=== PATIENT | male | born 1940 | race Caucasian/White ===

== ENCOUNTER 2017-09-23 16:13 | Inpatient (IN) | payer OTHER ==
[~2017-09-23] VITALS: Ht 175.3 cm; Wt 77.3 kg
[~2017-09-23 16:13] MED LIST: ASPI-1265 PO; BIMA2.5D4 EACHEYE; CLIN150C2 PO; INSU100V5 IJ; LANTUS SQ; LISI40TA4 PO; LOVA40TA76 PO; METF500T PO; NOR5T PO; PIOG45TA PO
[2017-09-23 17:03] LABS: BASOPHILS % (AUTO) 0 % (0-1); EOSINOPHILS % (AUTO) 0 % (0-6); HEMOGLOBIN 11.6 g/dl (14.0-17.9); LYMPHOCYTES # (AUTO) 0.3 X10'3 (1.1-4.8); LYMPHOCYTES % (AUTO) 1.3 % (21-51); MEAN CORPUSCULAR HEMOGLOBIN 29.8 PG (27.0-31.0); MEAN CORPUSCULAR HGB CONC 34.1 % (33.0-36.5); MEAN CORPUSCULAR VOLUME 87.3 FL (78-98); MEAN PLATELET VOLUME 7.8 FL (7.4-10.4); MONOCYTES # (AUTO) 1.2 X10'3 (0-0.9); MONOCYTES % (AUTO) 4.4 % (2-12); NEUTROPHILS # (AUTO) 25.9 X10'3 (1.8-7.7); NEUTROPHILS % (AUTO) 94.3 % (42-75); PLATELET COUNT 261 X10'3 (140-440); RED BLOOD COUNT 3.89 X10'6 (4.70-6.10); RED CELL DISTRIBUTION WIDTH 14.5 % (11.5-14.5)
[2017-09-23 17:14] LABS: WHITE BLOOD COUNT 27.5 X10'3 (4.5-11.0)
[2017-09-23 17:14] LABS: CLARITY,URINE CLEAR (Clear); COLOR,URINE YELLOW (Yellow); GLUCOSE, URINE NEGATIVE (Neg); KETONES,URINE TRACE mg/dl (Neg); LEUKOCYTE ESTERASE ,URINE NEGATIVE (Neg); NITRITES, URINE NEGATIVE (Neg); OCCULT BLOOD,URINE TRACE-INTACT (Neg); PH,URINE 5.5 (4.8-8.0); PROTEIN,URINE 30 mg/dl (Neg)
[2017-09-23 17:16] LABS: UA COLLECTION TYPE URINAL
[2017-09-23 17:18] LABS: ALANINE AMINOTRANSFERASE 26 U/L (12-78); ALBUMIN 2.5 G/DL (3.4-5.0); ALBUMIN/GLOBULIN RATIO 0.5 (1.1-1.5); ALKALINE PHOSPHATASE 184 IU/L (46-116); ANION GAP 12 (8-16); ASPARTATE AMINO TRANSFERASE 25 U/L (10-37); BILIRUBIN,TOTAL 0.7 MG/DL (0.1-1.0); BLOOD UREA NITROGEN 22 MG/DL (7-18); BUN/CREATININE RATIO 17.2 (5.4-32.0); CALCIUM 9.5 MG/DL (8.5-10.1); CHLORIDE 93 MMOL/L (99-107); CREATININE 1.28 MG/DL (0.60-1.10); GLUCOSE 101 MG/DL (70-104); POTASSIUM 4.9 MMOL/L (3.5-5.1); SODIUM 127 MMOL/L (135-145); TOTAL CARBON DIOXIDE 22.1 MMOL/L (24-32); TOTAL PROTEIN 7.9 G/DL (6.4-8.2); eGFR 55 ML/MIN
[2017-09-23] MEDS ORDERED: normal saline 1000ML IV soln IVB ONE (17:20)
[2017-09-23 17:22] LABS: BACTERIA,URINE NONE SEEN /HPF (Neg); RBC,URINE 0-2 /HPF (0-2); SQUAMOUS EPITHELIAL CELL,UR FEW /LPF (FEW); WBC,URINE 0-4 /HPF (0-4)
[2017-09-23 17:31] LABS: INR 1.1 INR; PARTIAL THROMBOPLASTIN TIME 34 SECONDS (22-32); PROTHROMBIN TIME 11.3 SECONDS (9.0-12.0)
[2017-09-23 17:39] LABS: TOTAL CELLS COUNTED 100
[2017-09-23 17:40] LABS: PLATELET ESTIMATE NORMAL; TOXIC GRANULATION 2+
[2017-09-23 17:58] LABS: MAGNESIUM 1.6 MG/DL (1.5-2.4)
[2017-09-23] MEDS ORDERED: vancomycin inj 1,000 MG in normal saline 250ml IV soln 250 ML IV STA (20:59)
[2017-09-23] MEDS ORDERED: temazepam 15mg capsule PO PRN (21:00)
[2017-09-23] MEDS ORDERED: CARV6.253 PO (21:07)
[2017-09-23] MEDS ORDERED: FURO-150 PO (21:07)
[2017-09-23] MEDS ORDERED: OMEP40CA37 PO (21:07)
[2017-09-23] MEDS ORDERED: SPIR25TA5 PO (21:07)
[2017-09-23] MEDS ORDERED: vancomycin/NS 1 GM ADD-VANTAGE 250 ML IV ONE (21:10)
[2017-09-23] MEDS ORDERED: ondansetron/PF 4mg/2ml inj IV PRN (21:35)
[2017-09-23] MEDS ORDERED: dextrose ORAL solution 15 GM/59 ML bottle PO PRN (21:35)
[2017-09-23] MEDS ORDERED: MESSAGE TO PHARMACY PO ONE (21:35)
[2017-09-23] MEDS ORDERED: dextrose 50%-water 50ml dispensing syringe IV PRN ×2 (21:35)
[2017-09-23] MEDS ORDERED: glucagon, human recombinant 1mg kit SUBCUT PRN (21:35)
[2017-09-23] MEDS ORDERED: mag hydrox/Alum hydrox/simeth 30ml oral suspension PO PRN (21:35)
[2017-09-23] MEDS ORDERED: acetaminophen 325mg tablet PO PRN ×2 (21:35)
[2017-09-23] MEDS ORDERED: HYDROcodone/acetaminophen 5mg/325mg tablet PO PRN (21:35)
[2017-09-23] MEDS: normal saline 1000ml 1,000 ML IV SCH (22:52)
[2017-09-23] MEDS: CefTRIAXone/D5W-Rocephin 1gm 50 ML IV SCH (22:53)
[2017-09-23 23:30] VITALS: BP 142/66
[2017-09-24 05:13] LABS: BASOPHILS % (AUTO) 0 % (0-1); EOSINOPHILS % (AUTO) 0 % (0-6); HEMATOCRIT 31.2 % (42.0-52.0); HEMOGLOBIN 10.5 g/dl (14.0-17.9); LYMPHOCYTES # (AUTO) 0.4 X10'3 (1.1-4.8); LYMPHOCYTES % (AUTO) 1.6 % (21-51); MEAN CORPUSCULAR HEMOGLOBIN 29.7 PG (27.0-31.0); MEAN CORPUSCULAR HGB CONC 33.7 % (33.0-36.5); MEAN CORPUSCULAR VOLUME 88.2 FL (78-98); MEAN PLATELET VOLUME 8.1 FL (7.4-10.4); MONOCYTES % (AUTO) 7.8 % (2-12); NEUTROPHILS # (AUTO) 24.6 X10'3 (1.8-7.7); NEUTROPHILS % (AUTO) 90.6 % (42-75); PLATELET COUNT 229 X10'3 (140-440); RED BLOOD COUNT 3.54 X10'6 (4.70-6.10); RED CELL DISTRIBUTION WIDTH 14.8 % (11.5-14.5)
[2017-09-24 05:38] LABS: WHITE BLOOD COUNT 27.2 X10'3 (4.5-11.0)
[2017-09-24 05:41] LABS: ALBUMIN 1.9 G/DL (3.4-5.0); ANION GAP 12 (8-16); BLOOD UREA NITROGEN 13 MG/DL (7-18); BUN/CREATININE RATIO 12.7 (5.4-32.0); CALCIUM 8.8 MG/DL (8.5-10.1); CHLORIDE 98 MMOL/L (99-107); CHOLESTEROL 61 MG/DL (0-200); CREATININE 1.02 MG/DL (0.60-1.10); HDL CHOLESTEROL 31 MG/DL (35-60); LDL CHOLESTEROL 25 MG/DL (50-100); POTASSIUM 3.9 MMOL/L (3.5-5.1); SODIUM 132 MMOL/L (135-145); TOTAL CARBON DIOXIDE 21.9 MMOL/L (24-32); TRIGLYCERIDES 31 MG/DL (20-135); eGFR 71 ML/MIN
[2017-09-24 05:46] LABS: GLUCOSE 34 MG/DL (70-104)
[2017-09-24 06:30] LABS: PLATELET ESTIMATE NORMAL; TOTAL CELLS COUNTED 100
[2017-09-24 07:30] VITALS: BP 140/77
[2017-09-24] MEDS: enoxaparin 40mg/0.4ml syringe SQ SCH (07:48)
[2017-09-24 07:49] LABS: MONOCYTES # (AUTO) 2.1 X10'3 (0-0.9)
[2017-09-24] MEDS: aspirin 81mg tab.chew PO SCH (07:49)
[2017-09-24] MEDS: atorvastatin 10mg tablet PO SCH ×2 (07:49→08:27)
[2017-09-24] MEDS: pantoprazole 40mg Tablet.DR PO SCH ×2 (07:51→08:26)
[2017-09-24] MEDS: carvedilol 6.25mg tablet PO SCH ×3 (07:56→19:49)
[2017-09-24] MEDS: spironolactone 25 MG tablet PO SCH ×2 (08:00→08:26)
[2017-09-24] MEDS: lisinopril 20mg tablet PO SCH ×2 (08:00→08:25)
[2017-09-24] MEDS: amLODIPine 5mg tablet PO SCH ×2 (08:00→08:28)
[2017-09-24] MEDS: CefTRIAXone/D5W-Rocephin 1gm 50 ML IV SCH (08:02)
[2017-09-24] MEDS: normal saline 1000ml 1,000 ML IV SCH ×2 (08:02→17:29)
[2017-09-24] MEDS: vancomycin/NS 1 GM ADD-VANTAGE 250 ML IV SCH ×2 (08:02→19:53)
[2017-09-24 11:22] VITALS: BP 135/60
[2017-09-24] MEDS ORDERED: ringers solution, lacted 1,000 ML IV ONE (14:25)
[2017-09-24 19:00] VITALS: BP 116/51
[2017-09-24] MEDS: insulin Lispro (HumaLOG) vial - multi-dose SQ SCH (19:47)
[2017-09-24] MEDS: lactobacillus rhamnosus 10,000 MMU CELLS/CAPSULE PO SCH (19:49)
[2017-09-24] MEDS: insulin glargine (Lantus) pen - multi-dose SQ SCH ×2 (21:00→21:38)
[2017-09-25] VITALS (19 sets, daily range): BP systolic 96–144; BP diastolic 44–83
[2017-09-25] MEDS: normal saline 1000ml 1,000 ML IV SCH ×3 (03:35→23:22)
[2017-09-25 05:52] LABS: PRE OP INR 1.3 INR; PRE OP PROTIME 13.2 SECONDS (9.0-12.0)
[2017-09-25] MEDS ORDERED: famotidine 20mg tablet PO ONE (06:00)
[2017-09-25 06:12] LABS: ALBUMIN 1.5 G/DL (3.4-5.0); ALBUMIN/GLOBULIN RATIO 0.4 (1.1-1.5); ALKALINE PHOSPHATASE 137 IU/L (46-116); BLOOD UREA NITROGEN 16 MG/DL (7-18); BUN/CREATININE RATIO 17.6 (5.4-32.0); CHLORIDE 99 MMOL/L (99-107); CREATININE 0.91 MG/DL (0.60-1.10); MAGNESIUM 1.5 MG/DL (1.5-2.4); PRE OP ALT 38 U/L (30-65); PRE OP ANION GAP 9 (8-16); PRE OP AST 55 U/L (10-37); PRE OP BILIRUB, TOTAL 0.5 MG/DL (0.0-1.0); PRE OP GLUCOSE 181 MG/DL (70-104); TOTAL CARBON DIOXIDE 19.1 MMOL/L (24-32); TOTAL PROTEIN 5.7 G/DL (6.4-8.2); eGFR 81 ML/MIN
[2017-09-25 06:16] LABS: PRE OP SODIUM 127 MMOL/L (135-145)
[2017-09-25] MEDS: carvedilol 6.25mg tablet PO SCH ×2 (06:45→19:56)
[2017-09-25] MEDS: aspirin 81mg tab.chew PO SCH (06:45)
[2017-09-25] MEDS: enoxaparin 40mg/0.4ml syringe SQ SCH (06:45)
[2017-09-25] MEDS: lisinopril 20mg tablet PO SCH ×2 (06:46→07:12)
[2017-09-25] MEDS: spironolactone 25 MG tablet PO SCH (06:46)
[2017-09-25] MEDS: pantoprazole 40mg Tablet.DR PO SCH ×2 (06:47→07:13)
[2017-09-25] MEDS: atorvastatin 10mg tablet PO SCH (06:50)
[2017-09-25] MEDS: amLODIPine 5mg tablet PO SCH ×2 (06:50→07:13)
[2017-09-25] MEDS: lactobacillus rhamnosus 10,000 MMU CELLS/CAPSULE PO SCH ×2 (06:50→19:56)
[2017-09-25 06:54] LABS: BASOPHILS % (AUTO) 0 % (0-1); EOSINOPHILS % (AUTO) 0 % (0-6); HEMATOCRIT 25.8 % (42.0-52.0); HEMOGLOBIN 8.9 g/dl (14.0-17.9); LYMPHOCYTES # (AUTO) 0.4 X10'3 (1.1-4.8); LYMPHOCYTES % (AUTO) 2.2 % (21-51); MEAN CORPUSCULAR HEMOGLOBIN 29.8 PG (27.0-31.0); MEAN CORPUSCULAR HGB CONC 34.3 % (33.0-36.5); MEAN CORPUSCULAR VOLUME 87.1 FL (78-98); MONOCYTES # (AUTO) 1.4 X10'3 (0-0.9); MONOCYTES % (AUTO) 7.4 % (2-12); NEUTROPHILS # (AUTO) 17.2 X10'3 (1.8-7.7); NEUTROPHILS % (AUTO) 90.4 % (42-75); PLATELET COUNT 167 X10'3 (140-440); RED BLOOD COUNT 2.97 X10'6 (4.70-6.10); RED CELL DISTRIBUTION WIDTH 14.6 % (11.5-14.5)
[2017-09-25] MEDS: CefTRIAXone/D5W-Rocephin 1gm 50 ML IV SCH (07:13)
[2017-09-25] MEDS ORDERED: VANCOMYCIN LEVEL IV ONE (07:30)
[2017-09-25] MEDS ORDERED: BUPIVAcaine/PF 7.5mg/ml (0.75%) 10ml vial ONE (07:49)
[2017-09-25] MEDS ORDERED: fentaNYL/PF 50MCG/1 ML 2ML syringe ONE (07:51)
[2017-09-25] MEDS ORDERED: MIDAZolam 5mg/5ml vial ONE (07:51)
[2017-09-25] MEDS ORDERED: ringers solution, lacted 1,000 ML IV SCH (07:53)
[2017-09-25] MEDS ORDERED: hydrALAZINE 20mg/ml inj. IV PRN (07:55)
[2017-09-25] MEDS ORDERED: labetalol 5mg/ml 20ml inj. IV PRN (07:55)
[2017-09-25] MEDS ORDERED: ondansetron/PF 4mg/2ml inj IV PRN (07:55)
[2017-09-25] MEDS ORDERED: morphine 4 MG/ML inj SYRINge IV PRN ×2 (07:55)
[2017-09-25] MEDS ORDERED: fentaNYL/PF 50MCG/1 ML 2ML syringe IV PRN ×2 (07:55)
[2017-09-25] MEDS: vancomycin/NS 1 GM ADD-VANTAGE 250 ML IV SCH ×2 (08:00→19:57)
[2017-09-25 09:19] LABS: TOTAL CELLS COUNTED 100
[2017-09-25 09:21] LABS: BANDS% (MANUAL) 2 % (0-10); LYMPHOCYTES % (MANUAL) 2 % (21-51); MONOCYTES % (MANUAL) 8 % (2-12); NEUTROPHILS % (MANUAL) 88 % (42-75); PLATELET ESTIMATE NORMAL; POLYCHROMASIA FEW
[2017-09-25 09:22] LABS: BURR CELLS 1+; ELLIPTOCYTES FEW; TOXIC GRANULATION 2+
[2017-09-25] MEDS: HYDROmorphone 1 mg/ml syringe IV PRN ×2 (14:39→19:56)
[2017-09-25] MEDS: insulin Lispro (HumaLOG) vial - multi-dose SQ SCH (19:14)
[2017-09-25] MEDS: insulin glargine (Lantus) pen - multi-dose SQ SCH ×2 (21:00→21:52)
[2017-09-26] VITALS: BP 121/53
[2017-09-26] MEDS: HYDROmorphone 1 mg/ml syringe IV PRN ×2 (00:39→06:00)
[2017-09-26 04:49] LABS: BASOPHILS % (AUTO) 0.1 % (0-1); EOSINOPHILS # (AUTO) 0.2 X10'3 (0-0.9); EOSINOPHILS % (AUTO) 2.2 % (0-6); HEMATOCRIT 25.5 % (42.0-52.0); HEMOGLOBIN 8.5 g/dl (14.0-17.9); LYMPHOCYTES # (AUTO) 0.6 X10'3 (1.1-4.8); LYMPHOCYTES % (AUTO) 6.3 % (21-51); MEAN CORPUSCULAR HEMOGLOBIN 29.1 PG (27.0-31.0); MEAN CORPUSCULAR HGB CONC 33.3 % (33.0-36.5); MEAN CORPUSCULAR VOLUME 87.4 FL (78-98); MEAN PLATELET VOLUME 8.3 FL (7.4-10.4); MONOCYTES # (AUTO) 0.9 X10'3 (0-0.9); MONOCYTES % (AUTO) 10.1 % (2-12); NEUTROPHILS # (AUTO) 7.6 X10'3 (1.8-7.7); NEUTROPHILS % (AUTO) 81.3 % (42-75); PLATELET COUNT 185 X10'3 (140-440); RED BLOOD COUNT 2.92 X10'6 (4.70-6.10); RED CELL DISTRIBUTION WIDTH 14.5 % (11.5-14.5); WHITE BLOOD COUNT 9.3 X10'3 (4.5-11.0)
[2017-09-26 05:08] LABS: ALBUMIN 1.5 G/DL (3.4-5.0); ANION GAP 8 (8-16); BLOOD UREA NITROGEN 17 MG/DL (7-18); BUN/CREATININE RATIO 17.5 (5.4-32.0); CALCIUM 8.2 MG/DL (8.5-10.1); CHLORIDE 101 MMOL/L (99-107); CREATININE 0.97 MG/DL (0.60-1.10); GLUCOSE 271 MG/DL (70-104); MAGNESIUM 1.4 MG/DL (1.5-2.4); POTASSIUM 4.1 MMOL/L (3.5-5.1); SODIUM 131 MMOL/L (135-145); TOTAL CARBON DIOXIDE 22.2 MMOL/L (24-32); eGFR 75 ML/MIN
[2017-09-26 07:42] VITALS: BP 120/61
[2017-09-26] MEDS: CefTRIAXone/D5W-Rocephin 1gm 50 ML IV SCH (08:10)
[2017-09-26] MEDS: lactobacillus rhamnosus 10,000 MMU CELLS/CAPSULE PO SCH ×2 (08:12→19:32)
[2017-09-26] MEDS: atorvastatin 10mg tablet PO SCH (08:12)
[2017-09-26] MEDS: aspirin 81mg tab.chew PO SCH (08:12)
[2017-09-26] MEDS: pantoprazole 40mg Tablet.DR PO SCH (08:13)
[2017-09-26] MEDS: amLODIPine 5mg tablet PO SCH (08:13)
[2017-09-26] MEDS: lisinopril 20mg tablet PO SCH (08:14)
[2017-09-26] MEDS: spironolactone 25 MG tablet PO SCH (08:14)
[2017-09-26] MEDS: enoxaparin 40mg/0.4ml syringe SQ SCH (08:14)
[2017-09-26] MEDS: carvedilol 6.25mg tablet PO SCH ×2 (08:17→19:32)
[2017-09-26] MEDS: insulin Lispro (HumaLOG) vial - multi-dose SQ SCH ×2 (09:44→19:42)
[2017-09-26] MEDS: vancomycin/NS 1 GM ADD-VANTAGE 250 ML IV SCH ×2 (09:45→19:32)
[2017-09-26] MEDS: normal saline 1000ml 1,000 ML IV SCH ×3 (10:33→23:14)
[2017-09-26] MEDS ORDERED: potassium Cl 40MEQ/NS 500ml 500 ML IV PRN ×2 (11:30)
[2017-09-26] MEDS ORDERED: magnesium Cl slow-release 64mg tablet PO PRN (11:30)
[2017-09-26] MEDS ORDERED: magnesium 1gm/100ml D5W IVPB 100 ML IV PRN (11:30)
[2017-09-26] MEDS ORDERED: potassium Cl 20 mEq SR tablet PO PRN ×2 (11:30)
[2017-09-26] MEDS ORDERED: magnesium 4gm in 100ml NS 100 ML IV PRN (11:30)
[2017-09-26 11:39] VITALS: BP 109/54
[2017-09-26 18:00] VITALS: BP 141/66
[2017-09-26] MEDS: insulin glargine (Lantus) pen - multi-dose SQ SCH ×2 (21:00→22:20)
[2017-09-26] MEDS: HYDROcodone/acetaminophen 10/325mg tab PO PRN (22:17)
[2017-09-27] VITALS: BP 130/57
[2017-09-27 05:33] LABS: BASOPHILS % (AUTO) 0.3 % (0-1); EOSINOPHILS # (AUTO) 0.1 X10'3 (0-0.9); EOSINOPHILS % (AUTO) 1.4 % (0-6); HEMATOCRIT 24.1 % (42.0-52.0); HEMOGLOBIN 8.1 g/dl (14.0-17.9); LYMPHOCYTES # (AUTO) 0.6 X10'3 (1.1-4.8); LYMPHOCYTES % (AUTO) 7.1 % (21-51); MEAN CORPUSCULAR HEMOGLOBIN 29.3 PG (27.0-31.0); MEAN CORPUSCULAR HGB CONC 33.6 % (33.0-36.5); MEAN CORPUSCULAR VOLUME 87.2 FL (78-98); MEAN PLATELET VOLUME 8.1 FL (7.4-10.4); MONOCYTES % (AUTO) 11.3 % (2-12); NEUTROPHILS # (AUTO) 6.8 X10'3 (1.8-7.7); NEUTROPHILS % (AUTO) 79.9 % (42-75); PLATELET COUNT 206 X10'3 (140-440); RED BLOOD COUNT 2.76 X10'6 (4.70-6.10); RED CELL DISTRIBUTION WIDTH 14.8 % (11.5-14.5); WHITE BLOOD COUNT 8.5 X10'3 (4.5-11.0)
[2017-09-27 06:03] LABS: ALBUMIN 1.5 G/DL (3.4-5.0); ANION GAP 7 (8-16); BLOOD UREA NITROGEN 12 MG/DL (7-18); BUN/CREATININE RATIO 14.5 (5.4-32.0); CALCIUM 8.1 MG/DL (8.5-10.1); CHLORIDE 104 MMOL/L (99-107); CREATININE 0.83 MG/DL (0.60-1.10); GLUCOSE 119 MG/DL (70-104); MAGNESIUM 1.6 MG/DL (1.5-2.4); SODIUM 134 MMOL/L (135-145); eGFR 90 ML/MIN
[2017-09-27 07:00] VITALS: BP 125/66
[2017-09-27] MEDS: pantoprazole 40mg Tablet.DR PO SCH (08:12)
[2017-09-27] MEDS: carvedilol 6.25mg tablet PO SCH ×2 (08:12→20:00)
[2017-09-27] MEDS: atorvastatin 10mg tablet PO SCH (08:12)
[2017-09-27] MEDS: lisinopril 20mg tablet PO SCH (08:12)
[2017-09-27] MEDS: lactobacillus rhamnosus 10,000 MMU CELLS/CAPSULE PO SCH ×2 (08:12→20:43)
[2017-09-27] MEDS: amLODIPine 5mg tablet PO SCH (08:12)
[2017-09-27] MEDS: aspirin 81mg tab.chew PO SCH (08:12)
[2017-09-27] MEDS: spironolactone 25 MG tablet PO SCH (08:12)
[2017-09-27] MEDS: CefTRIAXone/D5W-Rocephin 1gm 50 ML IV SCH (08:12)
[2017-09-27] MEDS: enoxaparin 40mg/0.4ml syringe SQ SCH (08:13)
[2017-09-27] MEDS: vancomycin/NS 1 GM ADD-VANTAGE 250 ML IV SCH ×2 (09:12→20:43)
[2017-09-27] MEDS: insulin Lispro (HumaLOG) vial - multi-dose SQ SCH ×3 (09:33→18:38)
[2017-09-27 11:43] VITALS: BP 125/51
[2017-09-27] MEDS: normal saline 1000ml 1,000 ML IV SCH (15:39)
[2017-09-27 20:00] VITALS: BP 133/54
[2017-09-27] MEDS: insulin glargine (Lantus) pen - multi-dose SQ SCH ×2 (21:00→21:40)
[2017-09-28] VITALS: BP 161/66
[2017-09-28] MEDS: normal saline 1000ml 1,000 ML IV SCH ×2 (01:35→04:45)
[2017-09-28] MEDS: magnesium hydroxide 30ml (MOM) UD suspension PO PRN ×2 (04:48→19:47)
[2017-09-28 07:00] VITALS: BP 142/62
[2017-09-28 07:20] LABS: BASOPHILS % (AUTO) 0.1 % (0-1); EOSINOPHILS # (AUTO) 0.2 X10'3 (0-0.9); HEMATOCRIT 26.8 % (42.0-52.0); HEMOGLOBIN 9.2 g/dl (14.0-17.9); LYMPHOCYTES # (AUTO) 0.6 X10'3 (1.1-4.8); LYMPHOCYTES % (AUTO) 5.2 % (21-51); MEAN CORPUSCULAR HEMOGLOBIN 29.2 PG (27.0-31.0); MEAN CORPUSCULAR HGB CONC 34.3 % (33.0-36.5); MEAN CORPUSCULAR VOLUME 85.1 FL (78-98); MEAN PLATELET VOLUME 8.3 FL (7.4-10.4); MONOCYTES # (AUTO) 1.2 X10'3 (0-0.9); MONOCYTES % (AUTO) 11.5 % (2-12); NEUTROPHILS # (AUTO) 8.8 X10'3 (1.8-7.7); NEUTROPHILS % (AUTO) 81.2 % (42-75); PLATELET COUNT 259 X10'3 (140-440); RED BLOOD COUNT 3.15 X10'6 (4.70-6.10); RED CELL DISTRIBUTION WIDTH 14.7 % (11.5-14.5); WHITE BLOOD COUNT 10.9 X10'3 (4.5-11.0)
[2017-09-28 07:40] LABS: ALBUMIN 1.7 G/DL (3.4-5.0); ANION GAP 6 (8-16); BLOOD UREA NITROGEN 8 MG/DL (7-18); BUN/CREATININE RATIO 8.7 (5.4-32.0); CALCIUM 8.7 MG/DL (8.5-10.1); CHLORIDE 101 MMOL/L (99-107); CREATININE 0.92 MG/DL (0.60-1.10); GLUCOSE 99 MG/DL (70-104); MAGNESIUM 1.5 MG/DL (1.5-2.4); POTASSIUM 3.8 MMOL/L (3.5-5.1); SODIUM 134 MMOL/L (135-145); TOTAL CARBON DIOXIDE 27.3 MMOL/L (24-32); eGFR 80 ML/MIN
[2017-09-28] MEDS: atorvastatin 10mg tablet PO SCH (09:46)
[2017-09-28] MEDS: carvedilol 6.25mg tablet PO SCH ×2 (09:46→19:46)
[2017-09-28] MEDS: lisinopril 20mg tablet PO SCH (09:46)
[2017-09-28] MEDS: lactobacillus rhamnosus 10,000 MMU CELLS/CAPSULE PO SCH ×2 (09:46→19:46)
[2017-09-28] MEDS: pantoprazole 40mg Tablet.DR PO SCH (09:46)
[2017-09-28] MEDS: amLODIPine 5mg tablet PO SCH (09:46)
[2017-09-28] MEDS: aspirin 81mg tab.chew PO SCH (09:46)
[2017-09-28] MEDS: enoxaparin 40mg/0.4ml syringe SQ SCH (09:49)
[2017-09-28] MEDS: vancomycin/NS 1 GM ADD-VANTAGE 250 ML IV SCH ×2 (09:51→19:46)
[2017-09-28] MEDS: spironolactone 25 MG tablet PO SCH (09:52)
[2017-09-28] MEDS: insulin Lispro (HumaLOG) vial - multi-dose SQ SCH ×3 (09:58→19:45)
[2017-09-28] MEDS: CefTRIAXone/D5W-Rocephin 1gm 50 ML IV SCH (11:22)
[2017-09-28] MEDS: HYDROcodone/acetaminophen 10/325mg tab PO PRN (19:47)
[2017-09-28 20:00] VITALS: BP 133/53
[2017-09-28] MEDS: insulin glargine (Lantus) pen - multi-dose SQ SCH ×2 (21:00→21:46)
[2017-09-29] VITALS: BP 134/60
[2017-09-29 05:28] LABS: MAGNESIUM 1.9 MG/DL (1.5-2.4); POTASSIUM 4.1 MMOL/L (3.5-5.1)
[2017-09-29] MEDS: spironolactone 25 MG tablet PO SCH (07:32)
[2017-09-29] MEDS: CefTRIAXone/D5W-Rocephin 1gm 50 ML IV SCH (07:32)
[2017-09-29] MEDS: lactobacillus rhamnosus 10,000 MMU CELLS/CAPSULE PO SCH ×2 (07:33→19:04)
[2017-09-29] MEDS: aspirin 81mg tab.chew PO SCH (07:33)
[2017-09-29] MEDS: carvedilol 6.25mg tablet PO SCH ×2 (07:33→19:03)
[2017-09-29] MEDS: pantoprazole 40mg Tablet.DR PO SCH (07:34)
[2017-09-29] MEDS: atorvastatin 10mg tablet PO SCH (07:34)
[2017-09-29] MEDS: amLODIPine 5mg tablet PO SCH (07:34)
[2017-09-29] MEDS: lisinopril 20mg tablet PO SCH (07:34)
[2017-09-29] MEDS: enoxaparin 40mg/0.4ml syringe SQ SCH (07:34)
[2017-09-29] MEDS: HYDROcodone/acetaminophen 10/325mg tab PO PRN ×3 (07:44→23:09)
[2017-09-29 07:56] VITALS: BP 140/57
[2017-09-29] MEDS: vancomycin/NS 1 GM ADD-VANTAGE 250 ML IV SCH (09:07)
[2017-09-29] MEDS: insulin Lispro (HumaLOG) vial - multi-dose SQ SCH ×3 (09:08→19:03)
[2017-09-29 12:13] VITALS: BP 95/39
[2017-09-29 20:00] VITALS: BP 129/54
[2017-09-29] MEDS: insulin glargine (Lantus) pen - multi-dose SQ SCH ×2 (21:00→22:07)
[2017-09-29] MEDS: dextrose ORAL solution 15 GM/59 ML bottle PO PRN ×2 (21:24→21:42)
[2017-09-30] VITALS: BP 139/59
[2017-09-30 07:00] VITALS: BP 125/66
[2017-09-30] MEDS ORDERED: VANCOMYCIN LEVEL IV ONE (07:30)
[2017-09-30] MEDS: HYDROcodone/acetaminophen 10/325mg tab PO PRN ×4 (07:33→20:48)
[2017-09-30] MEDS: lisinopril 20mg tablet PO SCH (07:33)
[2017-09-30] MEDS: atorvastatin 10mg tablet PO SCH (07:35)
[2017-09-30] MEDS: pantoprazole 40mg Tablet.DR PO SCH (07:35)
[2017-09-30] MEDS: aspirin 81mg tab.chew PO SCH (07:37)
[2017-09-30] MEDS: lactobacillus rhamnosus 10,000 MMU CELLS/CAPSULE PO SCH ×2 (07:37→20:47)
[2017-09-30] MEDS: carvedilol 6.25mg tablet PO SCH ×2 (07:37→20:48)
[2017-09-30] MEDS: amLODIPine 5mg tablet PO SCH (07:37)
[2017-09-30] MEDS: spironolactone 25 MG tablet PO SCH (07:37)
[2017-09-30] MEDS: enoxaparin 40mg/0.4ml syringe SQ SCH (07:38)
[2017-09-30 08:49] LABS: MAGNESIUM 1.9 MG/DL (1.5-2.4); POTASSIUM 4.4 MMOL/L (3.5-5.1); VANCOMYCIN,TROUGH 15.5 UG/ML (6.0-14.0)
[2017-09-30 11:00] VITALS: BP 123/58
[2017-09-30] MEDS: insulin Lispro (HumaLOG) vial - multi-dose SQ SCH ×2 (13:18→19:10)
[2017-09-30 19:18] VITALS: BP 135/52
[2017-09-30] MEDS ORDERED: insulin glargine (Lantus) pen - multi-dose SQ SCH (21:00)
[2017-09-30] MEDS: dextrose ORAL solution 15 GM/59 ML bottle PO PRN ×2 (21:51→22:08)
[2017-09-30] MEDS: insulin glargine (Lantus) pen - multi-dose SQ SCH (23:09)
[2017-09-30 23:32] VITALS: BP 122/56
[2017-10-01 05:36] LABS: MAGNESIUM 1.8 MG/DL (1.5-2.4); POTASSIUM 4.7 MMOL/L (3.5-5.1)
[2017-10-01 07:00] VITALS: BP 140/50
[2017-10-01] MEDS: aspirin 81mg tab.chew PO SCH (07:13)
[2017-10-01] MEDS: spironolactone 25 MG tablet PO SCH (07:14)
[2017-10-01] MEDS: lisinopril 20mg tablet PO SCH (07:14)
[2017-10-01] MEDS: pantoprazole 40mg Tablet.DR PO SCH (07:14)
[2017-10-01] MEDS: amLODIPine 5mg tablet PO SCH (07:14)
[2017-10-01] MEDS: carvedilol 6.25mg tablet PO SCH ×2 (07:14→20:56)
[2017-10-01] MEDS: HYDROcodone/acetaminophen 10/325mg tab PO PRN (07:14)
[2017-10-01] MEDS: lactobacillus rhamnosus 10,000 MMU CELLS/CAPSULE PO SCH ×2 (07:14→20:56)
[2017-10-01] MEDS: atorvastatin 10mg tablet PO SCH (07:14)
[2017-10-01] MEDS: enoxaparin 40mg/0.4ml syringe SQ SCH (07:15)
[2017-10-01] MEDS: insulin Lispro (HumaLOG) vial - multi-dose SQ SCH ×3 (09:17→19:32)
[2017-10-01 11:51] VITALS: BP 136/56
[2017-10-01 18:00] VITALS: BP 142/62
[2017-10-01 20:51] VITALS: BP 131/55
[2017-10-01] MEDS ORDERED: insulin glargine (Lantus) pen - multi-dose SQ SCH (21:00)
[2017-10-01] MEDS: insulin glargine (Lantus) pen - multi-dose SQ SCH (21:01)
[2017-10-01 23:25] VITALS: BP 146/62
[2017-10-02 07:17] VITALS: BP 146/57
[2017-10-02] MEDS: spironolactone 25 MG tablet PO SCH (07:51)
[2017-10-02] MEDS: carvedilol 6.25mg tablet PO SCH (07:51)
[2017-10-02] MEDS: lisinopril 20mg tablet PO SCH (07:51)
[2017-10-02] MEDS: atorvastatin 10mg tablet PO SCH (07:51)
[2017-10-02] MEDS: amLODIPine 5mg tablet PO SCH (07:51)
[2017-10-02] MEDS: enoxaparin 40mg/0.4ml syringe SQ SCH (07:51)
[2017-10-02] MEDS: lactobacillus rhamnosus 10,000 MMU CELLS/CAPSULE PO SCH (07:51)
[2017-10-02] MEDS: pantoprazole 40mg Tablet.DR PO SCH (07:51)
[2017-10-02] MEDS: aspirin 81mg tab.chew PO SCH (07:51)
[2017-10-02] MEDS: insulin Lispro (HumaLOG) vial - multi-dose SQ SCH ×2 (09:00→12:58)
[2017-10-02 11:52] VITALS: BP 133/57
== END 2017-10-02 14:47 | DRG 853 ==
LOC: ER 16:14 → ED HOLD 21:35 → SUR 3N 22:30 → PACU 09-25 07:52 → SUR 3N 09-25 11:21
PROVIDERS: ADMIT Hospitalist; ATTEND Family Medicine
PROC: 0Y6H0Z1 Detachment at Right Lower Leg, High, Open Approach (ICD-10-PCS; principal; 2017-09-25 07:46)
DX: A41.9 Sepsis, unspecified organism (principal); E43 Unspecified severe protein-calorie malnutrition; E11.52 Type 2 diabetes mellitus with diabetic peripheral angiopathy with gangrene; E87.1 Hypo-osmolality and hyponatremia; L03.115 Cellulitis of right lower limb; D62 Acute posthemorrhagic anemia; L97.529 Non-pressure chronic ulcer of other part of left foot with unspecified severity; I10 Essential (primary) hypertension; E11.621 Type 2 diabetes mellitus with foot ulcer; E11.65 Type 2 diabetes mellitus with hyperglycemia; E86.1 Hypovolemia; I25.2 Old myocardial infarction; Z79.899 Other long term (current) drug therapy; Z79.4 Long term (current) use of insulin; Z79.82 Long term (current) use of aspirin; Z86.73 Personal history of transient ischemic attack (TIA), and cerebral infarction without residual deficits; Z68.25 Body mass index [BMI] 25.0-25.9, adult
CPT/HCPCS: 36415; 71045; 80048; 80053; 80061; 80202; 81001; 82948; 83036; 83605; 83735; 84132; 84145; 84484; 85025; 85610; 85730; 87040; 87070; 93005; 93922; 93925; 96361; 96365; 97110; 97116; 97162; 97530; 99285; A4414; A6209; A6212; A6222; A6223; A6446; A6449; A6454; A7000; C1758; J0696; J1170; J1650; J1815; J2250; J2270; J3010; J3370; J3490; J7030; J7120

== ENCOUNTER 2017-10-12 06:35 | Inpatient (IN) | payer MEDICARE, OTHER ==
[~2017-10-12] VITALS: Ht 175.3 cm; Wt 79.5 kg
[~2017-10-12 06:35] MED LIST changes: -BIMA2.5D4 EACHEYE; +CARV6.253 PO; -CLIN150C2 PO; +FURO-150 PO; -METF500T PO; +OMEP40CA37 PO; -PIOG45TA PO; +SPIR25TA5 PO
[2017-10-12] MEDS ORDERED: pantoprazole IV 80 MG in normal saline 100ml IV soln 100 ML IV ONE (06:50)
[2017-10-12] MEDS ORDERED: ondansetron/PF 4mg/2ml inj IV ONE (06:50)
[2017-10-12] MEDS ORDERED: pantoprazole 40 MG vial IV ONE (07:00)
[2017-10-12 07:24] LABS: BASOPHILS # (AUTO) 0.1 X10'3 (0-0.2); BASOPHILS % (AUTO) 0.5 % (0-1); EOSINOPHILS # (AUTO) 0.3 X10'3 (0-0.9); EOSINOPHILS % (AUTO) 2.7 % (0-6); HEMATOCRIT 26.9 % (42.0-52.0); HEMOGLOBIN 9.1 g/dl (14.0-17.9); LYMPHOCYTES # (AUTO) 0.7 X10'3 (1.1-4.8); LYMPHOCYTES % (AUTO) 6.3 % (21-51); MEAN CORPUSCULAR HEMOGLOBIN 28.6 PG (27.0-31.0); MEAN CORPUSCULAR HGB CONC 33.9 % (33.0-36.5); MEAN CORPUSCULAR VOLUME 84.4 FL (78-98); MONOCYTES # (AUTO) 1.2 X10'3 (0-0.9); MONOCYTES % (AUTO) 10.5 % (2-12); NEUTROPHILS # (AUTO) 8.8 X10'3 (1.8-7.7); PLATELET COUNT 395 X10'3 (140-440); RED BLOOD COUNT 3.19 X10'6 (4.70-6.10)
[2017-10-12 07:34] LABS: PARTIAL THROMBOPLASTIN TIME 30 SECONDS (22-32); PROTHROMBIN TIME 10.7 SECONDS (9.0-12.0)
[2017-10-12 07:36] LABS: ANISOCYTOSIS 1+; ELLIPTOCYTES 1+; PLATELET ESTIMATE NORMAL; POLYCHROMASIA 1+; ROULEAUX 1+
[2017-10-12 07:37] LABS: HYPOCHROMASIA 1+
[2017-10-12 07:38] LABS: ALANINE AMINOTRANSFERASE 51 U/L (12-78); ALBUMIN 2.7 G/DL (3.4-5.0); ALBUMIN/GLOBULIN RATIO 0.5 (1.1-1.5); ALKALINE PHOSPHATASE 114 IU/L (46-116); ANION GAP 8 (8-16); ASPARTATE AMINO TRANSFERASE 35 U/L (10-37); BILIRUBIN,TOTAL 0.4 MG/DL (0.1-1.0); BLOOD UREA NITROGEN 40 MG/DL (7-18); BUN/CREATININE RATIO 33.1 (5.4-32.0); CALCIUM 9.6 MG/DL (8.5-10.1); CHLORIDE 98 MMOL/L (99-107); CREATININE 1.21 MG/DL (0.60-1.10); GLUCOSE 64 MG/DL (70-104); POTASSIUM 4.8 MMOL/L (3.5-5.1); SODIUM 132 MMOL/L (135-145); TOTAL CARBON DIOXIDE 26.1 MMOL/L (24-32); TOTAL PROTEIN 8.3 G/DL (6.4-8.2); eGFR 58 ML/MIN
[2017-10-12] MEDS ORDERED: INSU100I31 (08:06)
[2017-10-12] MEDS ORDERED: MULT1TAB74 PO (08:06)
[2017-10-12] MEDS ORDERED: DULR RC (08:06)
[2017-10-12] MEDS ORDERED: [UNRECOGNIZED DRUG - CODE] SQ (08:06)
[2017-10-12] MEDS ORDERED: NA P133E4 RC (08:06)
[2017-10-12] MEDS ORDERED: HYDR-565 PO (08:06)
[2017-10-12] MEDS ORDERED: ASCO500C15 PO (08:06)
[2017-10-12] MEDS ORDERED: DOCU-28 PO (08:06)
[2017-10-12] MEDS ORDERED: INSU100C4 SQ (08:08)
[2017-10-12] MEDS ORDERED: SENN-161 PO (08:08)
[2017-10-12] MEDS ORDERED: pantoprazole 40MG/NS 100ML BAG 100 ML IV SCH (08:45)
[2017-10-12] MEDS ORDERED: dextrose 50%-water 50ml dispensing syringe IV ONE (09:20)
[2017-10-12] MEDS ORDERED: dextrose 5%-normal saline 1,000 ML IV SCH (09:25)
[2017-10-12] MEDS ORDERED: morphine 4 MG/ML inj SYRINge IV PRN (09:45)
[2017-10-12] MEDS ORDERED: acetaminophen 325mg tablet PO PRN (09:45)
[2017-10-12] MEDS ORDERED: potassium Cl 40MEQ/NS 500ml 500 ML IV PRN ×2 (09:45)
[2017-10-12] MEDS ORDERED: magnesium 4gm in 100ml NS 100 ML IV PRN (09:45)
[2017-10-12] MEDS ORDERED: mag hydrox/Alum hydrox/simeth 30ml oral suspension PO PRN (09:45)
[2017-10-12] MEDS ORDERED: bisacodyl 10mg suppository rectal RC PRN (09:45)
[2017-10-12] MEDS ORDERED: magnesium 1gm/100ml D5W IVPB 100 ML IV PRN (09:45)
[2017-10-12] MEDS ORDERED: ondansetron/PF 4mg/2ml inj IV PRN (09:45)
[2017-10-12] MEDS ORDERED: HYDROcodone/acetaminophen 5mg/325mg tablet PO PRN (09:45)
[2017-10-12] MEDS ORDERED: HYDROcodone/acetaminophen 10/325mg tab PO PRN ×2 (09:45→16:15)
[2017-10-12] MEDS ORDERED: magnesium hydroxide 30ml (MOM) UD suspension PO PRN (09:45)
[2017-10-12] MEDS ORDERED: potassium Cl 20 mEq SR tablet PO PRN ×2 (09:45)
[2017-10-12] MEDS ORDERED: magnesium Cl slow-release 64mg tablet PO PRN (09:45)
[2017-10-12] MEDS: pantoprazole 40 MG vial IV SCH ×2 (10:00→19:40)
[2017-10-12] MEDS ORDERED: dextrose 50%-water 50ml dispensing syringe IV PRN ×2 (10:00)
[2017-10-12] MEDS ORDERED: MESSAGE TO PHARMACY PO ONE (10:00)
[2017-10-12] MEDS ORDERED: albuterol 2.5 MG/3 ML nebule NEB PRN (10:00)
[2017-10-12] MEDS ORDERED: glucagon, human recombinant 1mg kit SUBCUT PRN (10:00)
[2017-10-12] MEDS ORDERED: dextrose ORAL solution 15 GM/59 ML bottle PO PRN ×2 (10:00)
[2017-10-12 10:45] VITALS: BP 140/50
[2017-10-12] MEDS: CefTRIAXone/D5W-Rocephin 1gm 50 ML IV SCH (12:27)
[2017-10-12] MEDS: dextrose 5%-1/2 normal saline 1,000 ML IV SCH ×3 (12:28→22:55)
[2017-10-12 12:50] LABS: BASOPHILS % (AUTO) 0.2 % (0-1); EOSINOPHILS # (AUTO) 0.1 X10'3 (0-0.9); EOSINOPHILS % (AUTO) 0.9 % (0-6); HEMATOCRIT 29.4 % (42.0-52.0); HEMOGLOBIN 9.8 g/dl (14.0-17.9); LYMPHOCYTES # (AUTO) 0.6 X10'3 (1.1-4.8); LYMPHOCYTES % (AUTO) 5.4 % (21-51); MEAN CORPUSCULAR HEMOGLOBIN 28.7 PG (27.0-31.0); MEAN CORPUSCULAR HGB CONC 33.4 % (33.0-36.5); MEAN CORPUSCULAR VOLUME 85.9 FL (78-98); MEAN PLATELET VOLUME 8.2 FL (7.4-10.4); MONOCYTES % (AUTO) 9.3 % (2-12); NEUTROPHILS # (AUTO) 9.2 X10'3 (1.8-7.7); NEUTROPHILS % (AUTO) 84.2 % (42-75); PLATELET COUNT 326 X10'3 (140-440); RED BLOOD COUNT 3.42 X10'6 (4.70-6.10); RED CELL DISTRIBUTION WIDTH 14.8 % (11.5-14.5); WHITE BLOOD COUNT 10.9 X10'3 (4.5-11.0)
[2017-10-12] MEDS: guaiFENesin 200 MG/10 ML oral syrup UD cup PO SCH ×2 (13:05→19:40)
[2017-10-12 13:07] LABS: CLARITY,URINE SLIGHTLY CLOUDY (Clear); COLOR,URINE YELLOW (Yellow); GLUCOSE, URINE NEGATIVE (Neg); KETONES,URINE NEGATIVE (Neg); LEUKOCYTE ESTERASE ,URINE SMALL (Neg); NITRITES, URINE POSITIVE (Neg); OCCULT BLOOD,URINE LARGE (Neg); PROTEIN,URINE NEGATIVE (Neg); UROBILINOGEN,URINE 0.2 E.U/dL (0.2-1.0)
[2017-10-12 13:14] LABS: UA COLLECTION TYPE NON-SPECIFIED
[2017-10-12 13:18] LABS: BACTERIA,URINE FEW /HPF (Neg); MUCUS STRANDS FEW /LPF (Neg); SQUAMOUS EPITHELIAL CELL,UR MANY /LPF (FEW); WBC,URINE 0-4 /HPF (0-4)
[2017-10-12 15:00] VITALS: BP 113/46
[2017-10-12] MEDS: morphine 4 MG/ML inj SYRINge IV PRN ×2 (15:20→21:39)
[2017-10-12 17:57] LABS: BASOPHILS % (AUTO) 0.4 % (0-1); EOSINOPHILS # (AUTO) 0.1 X10'3 (0-0.9); EOSINOPHILS % (AUTO) 1.4 % (0-6); HEMATOCRIT 29.6 % (42.0-52.0); LYMPHOCYTES # (AUTO) 0.6 X10'3 (1.1-4.8); LYMPHOCYTES % (AUTO) 6.3 % (21-51); MEAN CORPUSCULAR HEMOGLOBIN 28.5 PG (27.0-31.0); MEAN CORPUSCULAR HGB CONC 33.6 % (33.0-36.5); MEAN CORPUSCULAR VOLUME 84.9 FL (78-98); MEAN PLATELET VOLUME 7.6 FL (7.4-10.4); MONOCYTES # (AUTO) 0.9 X10'3 (0-0.9); NEUTROPHILS % (AUTO) 82.9 % (42-75); PLATELET COUNT 347 X10'3 (140-440); RED BLOOD COUNT 3.49 X10'6 (4.70-6.10); RED CELL DISTRIBUTION WIDTH 15.1 % (11.5-14.5); WHITE BLOOD COUNT 9.7 X10'3 (4.5-11.0)
[2017-10-12 18:00] VITALS: BP 99/45
[2017-10-12] MEDS: carvedilol 6.25mg tablet PO SCH (19:41)
[2017-10-12] MEDS: docusate sod 100mg capsule PO SCH (19:41)
[2017-10-12 20:43] LABS: CLARITY,URINE CLEAR (Clear); COLOR,URINE YELLOW (Yellow); GLUCOSE, URINE NEGATIVE (Neg); KETONES,URINE NEGATIVE (Neg); LEUKOCYTE ESTERASE ,URINE TRACE (Neg); NITRITES, URINE NEGATIVE (Neg); OCCULT BLOOD,URINE NEGATIVE (Neg); PH,URINE 5.5 (4.8-8.0); PROTEIN,URINE NEGATIVE (Neg); UROBILINOGEN,URINE 0.2 E.U/dL (0.2-1.0)
[2017-10-12 20:57] LABS: UA COLLECTION TYPE VOIDED
[2017-10-12 20:58] LABS: BACTERIA,URINE FEW /HPF (Neg); RBC,URINE NONE SEEN /HPF (0-2); SQUAMOUS EPITHELIAL CELL,UR FEW /LPF (FEW); WBC,URINE 0-4 /HPF (0-4)
[2017-10-12 22:00] VITALS: BP 108/50
[2017-10-13 02:00] VITALS: BP 115/51
[2017-10-13] MEDS: guaiFENesin 200 MG/10 ML oral syrup UD cup PO SCH ×4 (03:27→19:41)
[2017-10-13] MEDS: morphine 4 MG/ML inj SYRINge IV PRN (03:28)
[2017-10-13 05:48] LABS: BASOPHILS # (AUTO) 0.1 X10'3 (0-0.2); BASOPHILS % (AUTO) 0.8 % (0-1); EOSINOPHILS # (AUTO) 0.2 X10'3 (0-0.9); EOSINOPHILS % (AUTO) 2.5 % (0-6); HEMATOCRIT 25.9 % (42.0-52.0); HEMOGLOBIN 8.7 g/dl (14.0-17.9); LYMPHOCYTES # (AUTO) 0.6 X10'3 (1.1-4.8); LYMPHOCYTES % (AUTO) 8.5 % (21-51); MEAN CORPUSCULAR HEMOGLOBIN 28.5 PG (27.0-31.0); MEAN CORPUSCULAR HGB CONC 33.7 % (33.0-36.5); MEAN CORPUSCULAR VOLUME 84.8 FL (78-98); MEAN PLATELET VOLUME 7.3 FL (7.4-10.4); MONOCYTES # (AUTO) 0.8 X10'3 (0-0.9); MONOCYTES % (AUTO) 11.8 % (2-12); NEUTROPHILS # (AUTO) 5.4 X10'3 (1.8-7.7); NEUTROPHILS % (AUTO) 76.4 % (42-75); PLATELET COUNT 270 X10'3 (140-440); RED BLOOD COUNT 3.05 X10'6 (4.70-6.10); RED CELL DISTRIBUTION WIDTH 14.8 % (11.5-14.5); WHITE BLOOD COUNT 7.1 X10'3 (4.5-11.0)
[2017-10-13 06:07] LABS: ALANINE AMINOTRANSFERASE 34 U/L (12-78); ALBUMIN 2.3 G/DL (3.4-5.0); ALBUMIN/GLOBULIN RATIO 0.5 (1.1-1.5); ALKALINE PHOSPHATASE 93 IU/L (46-116); ANION GAP 5 (8-16); ASPARTATE AMINO TRANSFERASE 24 U/L (10-37); BILIRUBIN,TOTAL 0.5 MG/DL (0.1-1.0); BLOOD UREA NITROGEN 22 MG/DL (7-18); BUN/CREATININE RATIO 21.6 (5.4-32.0); CALCIUM 9.2 MG/DL (8.5-10.1); CHLORIDE 100 MMOL/L (99-107); CREATININE 1.02 MG/DL (0.60-1.10); GLUCOSE 96 MG/DL (70-104); MAGNESIUM 1.6 MG/DL (1.5-2.4); POTASSIUM 4.5 MMOL/L (3.5-5.1); SODIUM 134 MMOL/L (135-145); TOTAL CARBON DIOXIDE 29.2 MMOL/L (24-32); TOTAL PROTEIN 7.2 G/DL (6.4-8.2); eGFR 71 ML/MIN
[2017-10-13] MEDS: pantoprazole 40 MG vial IV SCH (07:35)
[2017-10-13] MEDS: amLODIPine 5mg tablet PO SCH (07:35)
[2017-10-13] MEDS: HYDROcodone/acetaminophen 10/325mg tab PO PRN ×2 (07:35→15:12)
[2017-10-13] MEDS: docusate sod 100mg capsule PO SCH ×2 (07:38→19:41)
[2017-10-13] MEDS: atorvastatin 20mg tablet PO SCH (07:38)
[2017-10-13] MEDS: carvedilol 6.25mg tablet PO SCH ×2 (07:39→19:41)
[2017-10-13] MEDS: CefTRIAXone/D5W-Rocephin 1gm 50 ML IV SCH (07:39)
[2017-10-13 08:00] VITALS: BP 127/65
[2017-10-13] MEDS: K and/or MAG REPLACEMENT MC SCH (08:00)
[2017-10-13 11:00] VITALS: BP 124/50
[2017-10-13] MEDS: insulin Lispro (HumaLOG) vial - multi-dose SQ SCH (18:48)
[2017-10-13 19:00] VITALS: BP 108/52
[2017-10-13] MEDS: pantoprazole 40mg Tablet.DR PO SCH (19:41)
[2017-10-13 23:00] VITALS: BP 132/52
[2017-10-14] MEDS: guaiFENesin 200 MG/10 ML oral syrup UD cup PO SCH ×3 (01:55→13:56)
[2017-10-14 03:00] VITALS: BP 137/72
[2017-10-14 06:11] LABS: BASOPHILS % (AUTO) 0.5 % (0-1); EOSINOPHILS # (AUTO) 0.3 X10'3 (0-0.9); EOSINOPHILS % (AUTO) 3.9 % (0-6); HEMATOCRIT 28.3 % (42.0-52.0); HEMOGLOBIN 9.5 g/dl (14.0-17.9); LYMPHOCYTES # (AUTO) 0.8 X10'3 (1.1-4.8); LYMPHOCYTES % (AUTO) 10.9 % (21-51); MEAN CORPUSCULAR HEMOGLOBIN 28.4 PG (27.0-31.0); MEAN CORPUSCULAR HGB CONC 33.5 % (33.0-36.5); MEAN CORPUSCULAR VOLUME 84.6 FL (78-98); MONOCYTES # (AUTO) 0.8 X10'3 (0-0.9); MONOCYTES % (AUTO) 11.8 % (2-12); NEUTROPHILS # (AUTO) 5.1 X10'3 (1.8-7.7); NEUTROPHILS % (AUTO) 72.9 % (42-75); PLATELET COUNT 272 X10'3 (140-440); RED BLOOD COUNT 3.34 X10'6 (4.70-6.10); RED CELL DISTRIBUTION WIDTH 14.4 % (11.5-14.5)
[2017-10-14 06:41] LABS: ALANINE AMINOTRANSFERASE 37 U/L (12-78); ALBUMIN 2.5 G/DL (3.4-5.0); ALBUMIN/GLOBULIN RATIO 0.5 (1.1-1.5); ALKALINE PHOSPHATASE 104 IU/L (46-116); ANION GAP 5 (8-16); ASPARTATE AMINO TRANSFERASE 22 U/L (10-37); BILIRUBIN,TOTAL 0.3 MG/DL (0.1-1.0); BLOOD UREA NITROGEN 16 MG/DL (7-18); BUN/CREATININE RATIO 14.5 (5.4-32.0); CALCIUM 9.6 MG/DL (8.5-10.1); CHLORIDE 97 MMOL/L (99-107); GLUCOSE 155 MG/DL (70-104); MAGNESIUM 1.7 MG/DL (1.5-2.4); POTASSIUM 4.4 MMOL/L (3.5-5.1); SODIUM 129 MMOL/L (135-145); TOTAL PROTEIN 7.7 G/DL (6.4-8.2); eGFR 65 ML/MIN
[2017-10-14 07:00] VITALS: BP 139/54
[2017-10-14] MEDS: K and/or MAG REPLACEMENT MC SCH (08:00)
[2017-10-14] MEDS: atorvastatin 20mg tablet PO SCH (08:05)
[2017-10-14] MEDS: docusate sod 100mg capsule PO SCH (08:05)
[2017-10-14] MEDS: CefTRIAXone/D5W-Rocephin 1gm 50 ML IV SCH (08:05)
[2017-10-14] MEDS: carvedilol 6.25mg tablet PO SCH (08:05)
[2017-10-14] MEDS: amLODIPine 5mg tablet PO SCH (08:05)
[2017-10-14] MEDS: pantoprazole 40mg Tablet.DR PO SCH (08:05)
[2017-10-14] MEDS: insulin Lispro (HumaLOG) vial - multi-dose SQ SCH ×2 (08:47→13:29)
[2017-10-14] MEDS: HYDROcodone/acetaminophen 10/325mg tab PO PRN (10:32)
[2017-10-14 11:00] VITALS: BP 123/46
[2017-10-14] MEDS ORDERED: lactobacillus rhamnosus 10,000 MMU CELLS/CAPSULE PO SCH (20:00)
[2017-10-16 18:51] LABS: OCCULT BLOOD STOOL NEGATIVE (Neg)
== END 2017-10-14 15:05 | DRG 191 ==
LOC: ER 06:35 → ED HOLD 09:45 → PCU 3S 10:45
PROVIDERS: ADMIT Internal Medicine; ATTEND Internal Medicine
DX: J44.0 Chronic obstructive pulmonary disease with (acute) lower respiratory infection (principal); E87.1 Hypo-osmolality and hyponatremia; J20.9 Acute bronchitis, unspecified; E86.0 Dehydration; E11.649 Type 2 diabetes mellitus with hypoglycemia without coma; I10 Essential (primary) hypertension; L89.899 Pressure ulcer of other site, unspecified stage; K76.9 Liver disease, unspecified; L89.151 Pressure ulcer of sacral region, stage 1; Z66 Do not resuscitate; Z89.511 Acquired absence of right leg below knee; Z79.899 Other long term (current) drug therapy; Z79.4 Long term (current) use of insulin; Z79.82 Long term (current) use of aspirin; Z79.01 Long term (current) use of anticoagulants; Z86.73 Personal history of transient ischemic attack (TIA), and cerebral infarction without residual deficits
CPT/HCPCS: 36415; 71045; 71250; 74176; 76700; 80053; 81001; 82272; 82948; 83735; 85025; 85610; 85730; 86885; 86900; 86901; 87070; 87088; 96365; 96368; 96375; 97110; 97161; 97530; 97535; 99285; A4649; A6196; A6209; A6212; A6222; A6251; A6255; A6446; C9113; J0696; J2270; J7030; J7042

== ENCOUNTER 2017-11-07 10:39 | Inpatient (IN) | payer OTHER, MEDICAID ==
[~2017-11-07] VITALS: Ht 175.3 cm
[~2017-11-07 10:39] MED LIST changes: +ASCO500C15 PO; +DOCU-28 PO; +DULR RC; +HYDR-4353 PO; +INSU100C4 SQ; +INSU100I31; +MULT1TAB74 PO; +NA P133E4 RC; +SENN-161 PO; +[UNRECOGNIZED DRUG - CODE] SQ
[2017-11-07] MEDS ORDERED: normal saline 1000ML IV soln IVB ONE ×2 (12:45→14:40)
[2017-11-07 13:37] LABS: BASOPHILS # (AUTO) 0.1 X10'3 (0-0.2); BASOPHILS % (AUTO) 0.5 % (0-1); EOSINOPHILS # (AUTO) 0.1 X10'3 (0-0.9); EOSINOPHILS % (AUTO) 0.8 % (0-6); HEMATOCRIT 30.8 % (42.0-52.0); HEMOGLOBIN 10.4 g/dl (14.0-17.9); LYMPHOCYTES # (AUTO) 0.6 X10'3 (1.1-4.8); LYMPHOCYTES % (AUTO) 4.2 % (21-51); MEAN CORPUSCULAR HEMOGLOBIN 28.2 PG (27.0-31.0); MEAN CORPUSCULAR HGB CONC 33.6 % (33.0-36.5); MEAN CORPUSCULAR VOLUME 83.8 FL (78-98); MEAN PLATELET VOLUME 8.4 FL (7.4-10.4); MONOCYTES # (AUTO) 0.7 X10'3 (0-0.9); MONOCYTES % (AUTO) 5.3 % (2-12); NEUTROPHILS # (AUTO) 12.2 X10'3 (1.8-7.7); NEUTROPHILS % (AUTO) 89.2 % (42-75); PLATELET COUNT 297 X10'3 (140-440); RED BLOOD COUNT 3.68 X10'6 (4.70-6.10); RED CELL DISTRIBUTION WIDTH 15.5 % (11.5-14.5); WHITE BLOOD COUNT 13.7 X10'3 (4.5-11.0)
[2017-11-07 13:49] LABS: INR 1.1 INR; PARTIAL THROMBOPLASTIN TIME 32 SECONDS (22-32); PROTHROMBIN TIME 10.9 SECONDS (9.0-12.0)
[2017-11-07 13:52] LABS: ALANINE AMINOTRANSFERASE 31 U/L (12-78); ALBUMIN/GLOBULIN RATIO 0.6 (1.1-1.5); ALKALINE PHOSPHATASE 118 IU/L (46-116); ANION GAP 7 (8-16); ASPARTATE AMINO TRANSFERASE 20 U/L (10-37); BILIRUBIN,TOTAL 0.3 MG/DL (0.1-1.0); BLOOD UREA NITROGEN 52 MG/DL (7-18); BUN/CREATININE RATIO 34.4 (5.4-32.0); CALCIUM 9.6 MG/DL (8.5-10.1); CHLORIDE 94 MMOL/L (99-107); CREATININE 1.51 MG/DL (0.60-1.10); GLUCOSE 300 MG/DL (70-104); MAGNESIUM 1.8 MG/DL (1.5-2.4); POTASSIUM 5.1 MMOL/L (3.5-5.1); SODIUM 129 MMOL/L (135-145); TOTAL CARBON DIOXIDE 27.6 MMOL/L (24-32); TOTAL PROTEIN 8.3 G/DL (6.4-8.2); eGFR 45 ML/MIN
[2017-11-07] MEDS ORDERED: iohexol 350MG/ML 100ml bottle IV ONE (14:05)
[2017-11-07] MEDS: MESSAGE TO NURSING PO NR (14:20)
[2017-11-07] MEDS ORDERED: heparin 10,000 units/1 ML INJ IV PRN (17:30)
[2017-11-07] MEDS ORDERED: heparin 10,000 units/1 ML INJ IV ONE ×2 (17:30→17:55)
[2017-11-07] MEDS ORDERED: potassium Cl 40MEQ/NS 500ml 500 ML IV PRN ×2 (17:40)
[2017-11-07] MEDS ORDERED: MESSAGE TO PHARMACY PO ONE (17:40)
[2017-11-07] MEDS ORDERED: potassium Cl 20 mEq SR tablet PO PRN ×2 (17:40)
[2017-11-07] MEDS ORDERED: magnesium 1gm/100ml D5W IVPB 100 ML IV PRN (17:40)
[2017-11-07] MEDS ORDERED: ondansetron/PF 4mg/2ml inj IV PRN (17:40)
[2017-11-07] MEDS ORDERED: glucagon, human recombinant 1mg kit SUBCUT PRN (17:40)
[2017-11-07] MEDS ORDERED: dextrose ORAL solution 15 GM/59 ML bottle PO PRN (17:40)
[2017-11-07] MEDS ORDERED: magnesium 4gm in 100ml NS 100 ML IV PRN (17:40)
[2017-11-07] MEDS: HYDROmorphone 1 mg/ml syringe IV PRN (18:44)
[2017-11-07 19:10] VITALS: BP 140/51
[2017-11-07] MEDS: carvedilol 6.25mg tablet PO SCH (20:58)
[2017-11-07] MEDS: insulin glargine (Lantus) pen - multi-dose SQ SCH (21:37)
[2017-11-07 23:00] VITALS: BP 134/57
[2017-11-08] VITALS (7 sets, daily range): BP systolic 85–120; BP diastolic 43–63
[2017-11-08] MEDS: HYDROmorphone 1 mg/ml syringe IV PRN ×2 (00:10→06:04)
[2017-11-08 03:44] LABS: BASOPHILS % (AUTO) 0.2 % (0-1); EOSINOPHILS # (AUTO) 0.2 X10'3 (0-0.9); EOSINOPHILS % (AUTO) 2.1 % (0-6); HEMATOCRIT 28.8 % (42.0-52.0); HEMOGLOBIN 9.6 g/dl (14.0-17.9); LYMPHOCYTES # (AUTO) 0.7 X10'3 (1.1-4.8); LYMPHOCYTES % (AUTO) 7.4 % (21-51); MEAN CORPUSCULAR HEMOGLOBIN 28.1 PG (27.0-31.0); MEAN CORPUSCULAR HGB CONC 33.4 % (33.0-36.5); MEAN CORPUSCULAR VOLUME 84.2 FL (78-98); MEAN PLATELET VOLUME 7.8 FL (7.4-10.4); MONOCYTES # (AUTO) 0.9 X10'3 (0-0.9); MONOCYTES % (AUTO) 9.7 % (2-12); NEUTROPHILS # (AUTO) 7.3 X10'3 (1.8-7.7); NEUTROPHILS % (AUTO) 80.6 % (42-75); PLATELET COUNT 264 X10'3 (140-440); RED BLOOD COUNT 3.42 X10'6 (4.70-6.10); RED CELL DISTRIBUTION WIDTH 15.6 % (11.5-14.5); WHITE BLOOD COUNT 9.1 X10'3 (4.5-11.0)
[2017-11-08 04:07] LABS: ALANINE AMINOTRANSFERASE 28 U/L (12-78); ALBUMIN 2.7 G/DL (3.4-5.0); ALBUMIN/GLOBULIN RATIO 0.6 (1.1-1.5); ALKALINE PHOSPHATASE 104 IU/L (46-116); ANION GAP 5 (8-16); ASPARTATE AMINO TRANSFERASE 19 U/L (10-37); BILIRUBIN,TOTAL 0.3 MG/DL (0.1-1.0); BLOOD UREA NITROGEN 38 MG/DL (7-18); CALCIUM 9.5 MG/DL (8.5-10.1); CHLORIDE 99 MMOL/L (99-107); CHOLESTEROL 98 MG/DL (0-200); CREATININE 1.15 MG/DL (0.60-1.10); GLUCOSE 154 MG/DL (70-104); HDL CHOLESTEROL 48 MG/DL (35-60); LDL CHOLESTEROL 44 MG/DL (50-100); MAGNESIUM 1.8 MG/DL (1.5-2.4); POTASSIUM 4.7 MMOL/L (3.5-5.1); SODIUM 133 MMOL/L (135-145); TOTAL CARBON DIOXIDE 29.1 MMOL/L (24-32); TOTAL PROTEIN 7.6 G/DL (6.4-8.2); TRIGLYCERIDES 59 MG/DL (20-135); eGFR 62 ML/MIN
[2017-11-08] MEDS ORDERED: LOVASTATIN 40 MG PO SCH (08:00)
[2017-11-08] MEDS: carvedilol 6.25mg tablet PO SCH ×2 (08:00→19:56)
[2017-11-08] MEDS ORDERED: non-formulary drug (Multivitamins 1 TAB) PO SCH (08:00)
[2017-11-08] MEDS: K and/or MAG REPLACEMENT MC SCH (08:00)
[2017-11-08] MEDS ORDERED: non-formulary drug (Ascorbic Acid (Vitamin C) 1 CAP) PO SCH (08:00)
[2017-11-08] MEDS: multivitamins, therapeutics tablet PO SCH (08:07)
[2017-11-08] MEDS: atorvastatin 10mg tablet PO SCH (08:07)
[2017-11-08] MEDS: ascorbic acid 500mg tablet PO SCH (08:07)
[2017-11-08] MEDS: spironolactone 25 MG tablet PO SCH (08:07)
[2017-11-08] MEDS: HYDROcodone/acetaminophen 10/325mg tab PO PRN ×3 (08:08→21:22)
[2017-11-08] MEDS: aspirin 81mg tab.chew PO SCH (10:53)
[2017-11-08] MEDS: clopidogrel 75mg tablet PO SCH (10:53)
[2017-11-08] MEDS: MESSAGE TO NURSING PO NR (10:56)
[2017-11-08] MEDS: insulin Lispro (HumaLOG) vial - multi-dose SQ SCH ×2 (19:39→21:27)
[2017-11-08] MEDS: magnesium hydroxide 30ml (MOM) UD suspension PO PRN (19:56)
[2017-11-08] MEDS: insulin glargine (Lantus) pen - multi-dose SQ SCH (21:28)
[2017-11-09 03:00] VITALS: BP 113/65
[2017-11-09] MEDS: HYDROcodone/acetaminophen 10/325mg tab PO PRN ×3 (05:26→22:03)
[2017-11-09 05:37] LABS: BASOPHILS % (AUTO) 0.3 % (0-1); EOSINOPHILS # (AUTO) 0.2 X10'3 (0-0.9); EOSINOPHILS % (AUTO) 1.6 % (0-6); HEMATOCRIT 30.2 % (42.0-52.0); HEMOGLOBIN 10.1 g/dl (14.0-17.9); LYMPHOCYTES # (AUTO) 0.5 X10'3 (1.1-4.8); LYMPHOCYTES % (AUTO) 4.4 % (21-51); MEAN CORPUSCULAR HEMOGLOBIN 27.9 PG (27.0-31.0); MEAN CORPUSCULAR HGB CONC 33.4 % (33.0-36.5); MEAN CORPUSCULAR VOLUME 83.5 FL (78-98); MEAN PLATELET VOLUME 8.2 FL (7.4-10.4); MONOCYTES % (AUTO) 8.8 % (2-12); NEUTROPHILS # (AUTO) 9.5 X10'3 (1.8-7.7); NEUTROPHILS % (AUTO) 84.9 % (42-75); PLATELET COUNT 265 X10'3 (140-440); RED BLOOD COUNT 3.62 X10'6 (4.70-6.10); RED CELL DISTRIBUTION WIDTH 15.6 % (11.5-14.5); WHITE BLOOD COUNT 11.2 X10'3 (4.5-11.0)
[2017-11-09 06:00] VITALS: BP 97/55
[2017-11-09 06:01] LABS: ALANINE AMINOTRANSFERASE 29 U/L (12-78); ALBUMIN 2.6 G/DL (3.4-5.0); ALBUMIN/GLOBULIN RATIO 0.5 (1.1-1.5); ALKALINE PHOSPHATASE 102 IU/L (46-116); ANION GAP 6 (8-16); ASPARTATE AMINO TRANSFERASE 21 U/L (10-37); BILIRUBIN,TOTAL 0.4 MG/DL (0.1-1.0); BLOOD UREA NITROGEN 41 MG/DL (7-18); BUN/CREATININE RATIO 33.1 (5.4-32.0); CALCIUM 9.5 MG/DL (8.5-10.1); CHLORIDE 99 MMOL/L (99-107); CREATININE 1.24 MG/DL (0.60-1.10); GLUCOSE 201 MG/DL (70-104); MAGNESIUM 2.1 MG/DL (1.5-2.4); POTASSIUM 5.2 MMOL/L (3.5-5.1); SODIUM 133 MMOL/L (135-145); TOTAL CARBON DIOXIDE 28.5 MMOL/L (24-32); TOTAL PROTEIN 7.5 G/DL (6.4-8.2); eGFR 57 ML/MIN
[2017-11-09] MEDS: clopidogrel 75mg tablet PO SCH (07:25)
[2017-11-09] MEDS: ascorbic acid 500mg tablet PO SCH (07:25)
[2017-11-09] MEDS: atorvastatin 10mg tablet PO SCH (07:25)
[2017-11-09] MEDS: spironolactone 25 MG tablet PO SCH (07:25)
[2017-11-09] MEDS: aspirin 81mg tab.chew PO SCH (07:25)
[2017-11-09] MEDS: multivitamins, therapeutics tablet PO SCH (07:25)
[2017-11-09] MEDS: carvedilol 6.25mg tablet PO SCH ×2 (07:30→19:29)
[2017-11-09] MEDS: K and/or MAG REPLACEMENT MC SCH (08:00)
[2017-11-09] MEDS: insulin Lispro (HumaLOG) vial - multi-dose SQ SCH ×3 (08:50→19:02)
[2017-11-09] MEDS: MESSAGE TO NURSING PO NR (10:27)
[2017-11-09 11:00] VITALS: BP 117/51
[2017-11-09 14:14] LABS: ALBUMIN 2.5 G/DL (3.4-5.0); ANION GAP 3 (8-16); BLOOD UREA NITROGEN 41 MG/DL (7-18); BUN/CREATININE RATIO 29.9 (5.4-32.0); CALCIUM 9.5 MG/DL (8.5-10.1); CHLORIDE 97 MMOL/L (99-107); CREATININE 1.37 MG/DL (0.60-1.10); GLUCOSE 357 MG/DL (70-104); POTASSIUM 5.6 MMOL/L (3.5-5.1); SODIUM 128 MMOL/L (135-145); TOTAL CARBON DIOXIDE 28.4 MMOL/L (24-32); eGFR 51 ML/MIN
[2017-11-09 15:00] VITALS: BP 106/50
[2017-11-09] MEDS ORDERED: sodium polystyrene sulfonate 15gm/60ml oral suspension PO ONE (18:05)
[2017-11-09] MEDS ORDERED: sodium bicarbonate (8.4%) inj. 100 MEQ in dextrose 5%-water 1,000 ML IV SCH (18:05)
[2017-11-09 19:00] VITALS: BP 135/96
[2017-11-09] MEDS: normal saline 1000ml 1,000 ML IV SCH (19:30)
[2017-11-09 21:00] VITALS: BP 143/41
[2017-11-09] MEDS: insulin glargine (Lantus) pen - multi-dose SQ SCH (21:58)
[2017-11-10] MEDS: normal saline 1000ml 1,000 ML IV SCH (02:10)
[2017-11-10 03:00] VITALS: BP 160/68
[2017-11-10] MEDS: HYDROcodone/acetaminophen 10/325mg tab PO PRN ×3 (05:26→21:31)
[2017-11-10 06:00] VITALS: BP 170/58
[2017-11-10 06:08] LABS: ALANINE AMINOTRANSFERASE 28 U/L (12-78); ALBUMIN 2.4 G/DL (3.4-5.0); ALBUMIN/GLOBULIN RATIO 0.5 (1.1-1.5); ALKALINE PHOSPHATASE 103 IU/L (46-116); ANION GAP 7 (8-16); ASPARTATE AMINO TRANSFERASE 23 U/L (10-37); BILIRUBIN,TOTAL 0.4 MG/DL (0.1-1.0); BLOOD UREA NITROGEN 28 MG/DL (7-18); BUN/CREATININE RATIO 28.9 (5.4-32.0); CHLORIDE 99 MMOL/L (99-107); CREATININE 0.97 MG/DL (0.60-1.10); GLUCOSE 172 MG/DL (70-104); MAGNESIUM 1.9 MG/DL (1.5-2.4); SODIUM 132 MMOL/L (135-145); TOTAL CARBON DIOXIDE 26.1 MMOL/L (24-32); TOTAL PROTEIN 7.2 G/DL (6.4-8.2); eGFR 75 ML/MIN
[2017-11-10 06:14] LABS: BASOPHILS % (AUTO) 0.3 % (0-1); EOSINOPHILS # (AUTO) 0.3 X10'3 (0-0.9); EOSINOPHILS % (AUTO) 2.6 % (0-6); HEMATOCRIT 28.7 % (42.0-52.0); HEMOGLOBIN 9.6 g/dl (14.0-17.9); LYMPHOCYTES # (AUTO) 0.5 X10'3 (1.1-4.8); LYMPHOCYTES % (AUTO) 4.5 % (21-51); MEAN CORPUSCULAR HGB CONC 33.7 % (33.0-36.5); MEAN CORPUSCULAR VOLUME 83.3 FL (78-98); MEAN PLATELET VOLUME 8.1 FL (7.4-10.4); MONOCYTES # (AUTO) 1.2 X10'3 (0-0.9); NEUTROPHILS # (AUTO) 9.8 X10'3 (1.8-7.7); NEUTROPHILS % (AUTO) 82.6 % (42-75); PLATELET COUNT 232 X10'3 (140-440); RED BLOOD COUNT 3.44 X10'6 (4.70-6.10); RED CELL DISTRIBUTION WIDTH 15.5 % (11.5-14.5); WHITE BLOOD COUNT 11.9 X10'3 (4.5-11.0)
[2017-11-10] MEDS: multivitamins, therapeutics tablet PO SCH (07:27)
[2017-11-10] MEDS: ascorbic acid 500mg tablet PO SCH (07:28)
[2017-11-10] MEDS: aspirin 81mg tab.chew PO SCH (07:28)
[2017-11-10] MEDS: clopidogrel 75mg tablet PO SCH (07:28)
[2017-11-10] MEDS: atorvastatin 10mg tablet PO SCH (07:28)
[2017-11-10] MEDS: carvedilol 6.25mg tablet PO SCH ×2 (07:30→21:30)
[2017-11-10] MEDS: K and/or MAG REPLACEMENT MC SCH (08:00)
[2017-11-10] MEDS: insulin Lispro (HumaLOG) vial - multi-dose SQ SCH ×2 (09:17→18:52)
[2017-11-10] MEDS: baclofen 10mg tablet PO PRN (10:13)
[2017-11-10 15:00] VITALS: BP 116/67
[2017-11-10] MEDS: hyDRALAzine 10mg tablet PO SCH (16:00)
[2017-11-10 19:00] VITALS: BP 144/50
[2017-11-10] MEDS: nystatin 15 GM powder TP SCH (22:22)
[2017-11-10] MEDS: insulin glargine (Lantus) pen - multi-dose SQ SCH (22:24)
[2017-11-10 23:00] VITALS: BP 153/61
[2017-11-11] VITALS (7 sets, daily range): BP systolic 99–148; BP diastolic 51–97
[2017-11-11 06:17] LABS: BASOPHILS % (AUTO) 0 % (0-1); EOSINOPHILS # (AUTO) 0.2 X10'3 (0-0.9); EOSINOPHILS % (AUTO) 2.1 % (0-6); HEMATOCRIT 29.1 % (42.0-52.0); HEMOGLOBIN 9.9 g/dl (14.0-17.9); LYMPHOCYTES # (AUTO) 0.5 X10'3 (1.1-4.8); LYMPHOCYTES % (AUTO) 5.8 % (21-51); MEAN CORPUSCULAR HEMOGLOBIN 28.2 PG (27.0-31.0); MEAN CORPUSCULAR HGB CONC 33.9 % (33.0-36.5); MEAN PLATELET VOLUME 7.8 FL (7.4-10.4); MONOCYTES # (AUTO) 1.1 X10'3 (0-0.9); MONOCYTES % (AUTO) 14.4 % (2-12); NEUTROPHILS # (AUTO) 6.2 X10'3 (1.8-7.7); NEUTROPHILS % (AUTO) 77.7 % (42-75); PLATELET COUNT 211 X10'3 (140-440); RED CELL DISTRIBUTION WIDTH 15.3 % (11.5-14.5); WHITE BLOOD COUNT 7.9 X10'3 (4.5-11.0)
[2017-11-11 06:34] LABS: ALANINE AMINOTRANSFERASE 32 U/L (12-78); ALBUMIN 2.5 G/DL (3.4-5.0); ALBUMIN/GLOBULIN RATIO 0.5 (1.1-1.5); ALKALINE PHOSPHATASE 106 IU/L (46-116); ANION GAP 6 (8-16); ASPARTATE AMINO TRANSFERASE 23 U/L (10-37); BILIRUBIN,TOTAL 0.5 MG/DL (0.1-1.0); BLOOD UREA NITROGEN 20 MG/DL (7-18); BUN/CREATININE RATIO 19.8 (5.4-32.0); CALCIUM 9.2 MG/DL (8.5-10.1); CHLORIDE 95 MMOL/L (99-107); CREATININE 1.01 MG/DL (0.60-1.10); GLUCOSE 259 MG/DL (70-104); MAGNESIUM 1.8 MG/DL (1.5-2.4); POTASSIUM 4.9 MMOL/L (3.5-5.1); SODIUM 128 MMOL/L (135-145); TOTAL CARBON DIOXIDE 27.2 MMOL/L (24-32); TOTAL PROTEIN 7.2 G/DL (6.4-8.2); eGFR 72 ML/MIN
[2017-11-11] MEDS: K and/or MAG REPLACEMENT MC SCH (07:03)
[2017-11-11] MEDS: multivitamins, therapeutics tablet PO SCH (07:52)
[2017-11-11] MEDS: atorvastatin 10mg tablet PO SCH (07:52)
[2017-11-11] MEDS: hyDRALAzine 10mg tablet PO SCH ×4 (07:52→22:54)
[2017-11-11] MEDS: aspirin 81mg tab.chew PO SCH (07:52)
[2017-11-11] MEDS: nystatin 15 GM powder TP SCH ×3 (07:52→21:26)
[2017-11-11] MEDS: ascorbic acid 500mg tablet PO SCH (07:52)
[2017-11-11] MEDS: HYDROcodone/acetaminophen 10/325mg tab PO PRN ×2 (07:52→16:48)
[2017-11-11] MEDS: carvedilol 6.25mg tablet PO SCH ×2 (07:52→20:02)
[2017-11-11] MEDS: clopidogrel 75mg tablet PO SCH (07:52)
[2017-11-11] MEDS: insulin Lispro (HumaLOG) vial - multi-dose SQ SCH ×2 (08:50→13:34)
[2017-11-11] MEDS ORDERED: iohexol 300mg/ml 100ml inj. ONE (15:19)
[2017-11-11] MEDS: insulin glargine (Lantus) pen - multi-dose SQ SCH (21:29)
[2017-11-11] MEDS: acetaminophen 325mg tablet PO PRN (21:51)
[2017-11-12] VITALS (7 sets, daily range): BP systolic 96–131; BP diastolic 41–54
[2017-11-12] MEDS: HYDROcodone/acetaminophen 10/325mg tab PO PRN ×3 (02:47→15:35)
[2017-11-12 06:28] LABS: BASOPHILS % (AUTO) 0.3 % (0-1); EOSINOPHILS # (AUTO) 0.1 X10'3 (0-0.9); HEMATOCRIT 28.4 % (42.0-52.0); HEMOGLOBIN 9.5 g/dl (14.0-17.9); LYMPHOCYTES # (AUTO) 0.5 X10'3 (1.1-4.8); LYMPHOCYTES % (AUTO) 5.7 % (21-51); MEAN CORPUSCULAR HEMOGLOBIN 27.6 PG (27.0-31.0); MEAN CORPUSCULAR HGB CONC 33.3 % (33.0-36.5); MEAN CORPUSCULAR VOLUME 82.9 FL (78-98); MEAN PLATELET VOLUME 8.3 FL (7.4-10.4); MONOCYTES # (AUTO) 1.3 X10'3 (0-0.9); MONOCYTES % (AUTO) 14.3 % (2-12); NEUTROPHILS # (AUTO) 7.2 X10'3 (1.8-7.7); NEUTROPHILS % (AUTO) 78.7 % (42-75); PLATELET COUNT 202 X10'3 (140-440); RED BLOOD COUNT 3.43 X10'6 (4.70-6.10); RED CELL DISTRIBUTION WIDTH 15.7 % (11.5-14.5); WHITE BLOOD COUNT 9.1 X10'3 (4.5-11.0)
[2017-11-12 06:44] LABS: ALANINE AMINOTRANSFERASE 28 U/L (12-78); ALBUMIN 2.3 G/DL (3.4-5.0); ALBUMIN/GLOBULIN RATIO 0.5 (1.1-1.5); ALKALINE PHOSPHATASE 97 IU/L (46-116); ANION GAP 9 (8-16); ASPARTATE AMINO TRANSFERASE 27 U/L (10-37); BILIRUBIN,TOTAL 0.4 MG/DL (0.1-1.0); BLOOD UREA NITROGEN 21 MG/DL (7-18); BUN/CREATININE RATIO 21.6 (5.4-32.0); CALCIUM 7.8 MG/DL (8.5-10.1); CHLORIDE 96 MMOL/L (99-107); CREATININE 0.97 MG/DL (0.60-1.10); GLUCOSE 149 MG/DL (70-104); POTASSIUM 4.4 MMOL/L (3.5-5.1); SODIUM 130 MMOL/L (135-145); TOTAL CARBON DIOXIDE 25.1 MMOL/L (24-32); TOTAL PROTEIN 6.9 G/DL (6.4-8.2); eGFR 75 ML/MIN
[2017-11-12] MEDS: K and/or MAG REPLACEMENT MC SCH (07:57)
[2017-11-12] MEDS: clopidogrel 75mg tablet PO SCH (08:09)
[2017-11-12] MEDS: carvedilol 6.25mg tablet PO SCH ×2 (08:09→19:59)
[2017-11-12] MEDS: aspirin 81mg tab.chew PO SCH (08:09)
[2017-11-12] MEDS: multivitamins, therapeutics tablet PO SCH (08:09)
[2017-11-12] MEDS: ascorbic acid 500mg tablet PO SCH (08:09)
[2017-11-12] MEDS: atorvastatin 10mg tablet PO SCH (08:09)
[2017-11-12] MEDS: hyDRALAzine 10mg tablet PO SCH ×3 (08:09→23:20)
[2017-11-12] MEDS: HYDROmorphone 1 mg/ml syringe IV PRN (08:18)
[2017-11-12] MEDS: nystatin 15 GM powder TP SCH ×3 (08:23→21:07)
[2017-11-12] MEDS: insulin Lispro (HumaLOG) vial - multi-dose SQ SCH ×3 (09:02→18:56)
[2017-11-12] MEDS: insulin glargine (Lantus) pen - multi-dose SQ SCH (21:27)
[2017-11-13] MEDS: HYDROcodone/acetaminophen 10/325mg tab PO PRN ×3 (00:09→20:30)
[2017-11-13 03:00] VITALS: BP 110/45
[2017-11-13 06:00] VITALS: BP 126/56
[2017-11-13] MEDS: atorvastatin 10mg tablet PO SCH (07:59)
[2017-11-13] MEDS: aspirin 81mg tab.chew PO SCH (07:59)
[2017-11-13] MEDS: hyDRALAzine 10mg tablet PO SCH ×3 (07:59→23:31)
[2017-11-13] MEDS: nystatin 15 GM powder TP SCH ×3 (07:59→20:35)
[2017-11-13] MEDS: clopidogrel 75mg tablet PO SCH (07:59)
[2017-11-13] MEDS: ascorbic acid 500mg tablet PO SCH (07:59)
[2017-11-13] MEDS: carvedilol 6.25mg tablet PO SCH ×2 (07:59→20:11)
[2017-11-13] MEDS: multivitamins, therapeutics tablet PO SCH (07:59)
[2017-11-13] MEDS: K and/or MAG REPLACEMENT MC SCH (08:00)
[2017-11-13] MEDS: insulin Lispro (HumaLOG) vial - multi-dose SQ SCH ×2 (09:55→13:53)
[2017-11-13] MEDS: vancomycin/NS 1 GM ADD-VANTAGE 250 ML IV SCH ×3 (11:54→23:32)
[2017-11-13 15:00] VITALS: BP 115/45
[2017-11-13] MEDS: dextrose ORAL solution 15 GM/59 ML bottle PO PRN (17:18)
[2017-11-13 19:00] VITALS: BP 118/43
[2017-11-13] MEDS: lactobacillus rhamnosus 10,000 MMU CELLS/CAPSULE PO SCH (20:11)
[2017-11-13] MEDS: insulin glargine (Lantus) pen - multi-dose SQ SCH (20:35)
[2017-11-13 23:00] VITALS: BP 128/56
[2017-11-13] MEDS ORDERED: VANCOMYCIN LEVEL IV ONE (23:30)
[2017-11-14 03:00] VITALS: BP 147/43
[2017-11-14 06:00] VITALS: BP 134/50
[2017-11-14] MEDS: lactobacillus rhamnosus 10,000 MMU CELLS/CAPSULE PO SCH ×2 (07:22→19:19)
[2017-11-14] MEDS: HYDROcodone/acetaminophen 10/325mg tab PO PRN ×3 (07:22→19:19)
[2017-11-14] MEDS: aspirin 81mg tab.chew PO SCH (07:22)
[2017-11-14] MEDS: atorvastatin 10mg tablet PO SCH (07:23)
[2017-11-14] MEDS: hyDRALAzine 10mg tablet PO SCH ×3 (07:23→23:44)
[2017-11-14] MEDS: clopidogrel 75mg tablet PO SCH (07:23)
[2017-11-14] MEDS: ascorbic acid 500mg tablet PO SCH (07:23)
[2017-11-14] MEDS: carvedilol 6.25mg tablet PO SCH ×2 (07:25→19:19)
[2017-11-14] MEDS: multivitamins, therapeutics tablet PO SCH (07:26)
[2017-11-14] MEDS: nystatin 15 GM powder TP SCH ×3 (07:26→21:46)
[2017-11-14] MEDS: K and/or MAG REPLACEMENT MC SCH (08:00)
[2017-11-14] MEDS: insulin Lispro (HumaLOG) vial - multi-dose SQ SCH ×3 (09:37→19:24)
[2017-11-14 11:00] VITALS: BP 117/53
[2017-11-14] MEDS: vancomycin/NS 1 GM ADD-VANTAGE 250 ML IV SCH ×2 (12:05→23:46)
[2017-11-14 15:00] VITALS: BP 119/47
[2017-11-14 19:00] VITALS: BP 106/59
[2017-11-14] MEDS: insulin glargine (Lantus) pen - multi-dose SQ SCH (21:58)
[2017-11-14 23:00] VITALS: BP 129/40
[2017-11-15 03:00] VITALS: BP 149/56
[2017-11-15] MEDS: mag hydrox/Alum hydrox/simeth 30ml oral suspension PO PRN (05:14)
[2017-11-15 06:00] VITALS: BP 145/64
[2017-11-15] MEDS: hyDRALAzine 10mg tablet PO SCH ×3 (07:37→23:51)
[2017-11-15] MEDS: ascorbic acid 500mg tablet PO SCH (07:37)
[2017-11-15] MEDS: carvedilol 6.25mg tablet PO SCH ×2 (07:38→19:33)
[2017-11-15] MEDS: aspirin 81mg tab.chew PO SCH (07:38)
[2017-11-15] MEDS: atorvastatin 10mg tablet PO SCH (07:38)
[2017-11-15] MEDS: clopidogrel 75mg tablet PO SCH (07:39)
[2017-11-15] MEDS: lactobacillus rhamnosus 10,000 MMU CELLS/CAPSULE PO SCH ×2 (07:39→19:33)
[2017-11-15] MEDS: multivitamins, therapeutics tablet PO SCH (07:39)
[2017-11-15] MEDS: HYDROcodone/acetaminophen 10/325mg tab PO PRN ×2 (07:41→19:35)
[2017-11-15] MEDS: nystatin 15 GM powder TP SCH ×3 (07:41→19:33)
[2017-11-15] MEDS: K and/or MAG REPLACEMENT MC SCH (08:00)
[2017-11-15 11:00] VITALS: BP 128/56
[2017-11-15] MEDS: vancomycin/NS 1 GM ADD-VANTAGE 250 ML IV SCH ×2 (12:34→23:51)
[2017-11-15] MEDS: insulin Lispro (HumaLOG) vial - multi-dose SQ SCH ×2 (14:41→19:22)
[2017-11-15 15:00] VITALS: BP 130/44
[2017-11-15 19:00] VITALS: BP 146/37
[2017-11-15] MEDS: magnesium hydroxide 30ml (MOM) UD suspension PO PRN (19:34)
[2017-11-15] MEDS: insulin glargine (Lantus) pen - multi-dose SQ SCH (22:02)
[2017-11-15 23:00] VITALS: BP 132/50
[2017-11-16 03:00] VITALS: BP 129/61
[2017-11-16 06:00] VITALS: BP 131/55
[2017-11-16] MEDS: atorvastatin 10mg tablet PO SCH (07:18)
[2017-11-16] MEDS: clopidogrel 75mg tablet PO SCH (07:19)
[2017-11-16] MEDS: lactobacillus rhamnosus 10,000 MMU CELLS/CAPSULE PO SCH ×2 (07:19→19:30)
[2017-11-16] MEDS: ascorbic acid 500mg tablet PO SCH (07:19)
[2017-11-16] MEDS: hyDRALAzine 10mg tablet PO SCH ×2 (07:20→15:56)
[2017-11-16] MEDS: carvedilol 6.25mg tablet PO SCH ×2 (07:20→19:30)
[2017-11-16] MEDS: multivitamins, therapeutics tablet PO SCH (07:20)
[2017-11-16] MEDS: nystatin 15 GM powder TP SCH ×3 (07:21→21:46)
[2017-11-16] MEDS: aspirin 81mg tab.chew PO SCH (07:21)
[2017-11-16] MEDS: HYDROcodone/acetaminophen 10/325mg tab PO PRN ×2 (07:23→15:56)
[2017-11-16 07:46] LABS: ALBUMIN 2.3 G/DL (3.4-5.0); ANION GAP 8 (8-16); BLOOD UREA NITROGEN 11 MG/DL (7-18); BUN/CREATININE RATIO 14.3 (5.4-32.0); CALCIUM 9.2 MG/DL (8.5-10.1); CHLORIDE 100 MMOL/L (99-107); CREATININE 0.77 MG/DL (0.60-1.10); GLUCOSE 124 MG/DL (70-104); POTASSIUM 4.7 MMOL/L (3.5-5.1); SODIUM 133 MMOL/L (135-145); TOTAL CARBON DIOXIDE 24.7 MMOL/L (24-32); eGFR > 90 ML/MIN
[2017-11-16] MEDS: K and/or MAG REPLACEMENT MC SCH (08:00)
[2017-11-16] MEDS: insulin Lispro (HumaLOG) vial - multi-dose SQ SCH ×2 (09:43→14:34)
[2017-11-16 11:00] VITALS: BP 151/61
[2017-11-16] MEDS ORDERED: magnesium citrate 296ml oral solution PO PRN (11:35)
[2017-11-16] MEDS: vancomycin/NS 1 GM ADD-VANTAGE 250 ML IV SCH (12:08)
[2017-11-16 15:00] VITALS: BP 107/34
[2017-11-16 19:00] VITALS: BP 144/43
[2017-11-16] MEDS: insulin glargine (Lantus) pen - multi-dose SQ SCH (21:46)
[2017-11-16 23:00] VITALS: BP 109/59
[2017-11-17] MEDS: vancomycin/NS 1 GM ADD-VANTAGE 250 ML IV SCH ×2 (00:35→12:21)
[2017-11-17] MEDS: HYDROcodone/acetaminophen 10/325mg tab PO PRN ×4 (00:35→22:01)
[2017-11-17] MEDS: hyDRALAzine 10mg tablet PO SCH ×3 (00:35→19:29)
[2017-11-17 03:00] VITALS: BP 147/75
[2017-11-17 06:00] VITALS: BP 147/75
[2017-11-17] MEDS: K and/or MAG REPLACEMENT MC SCH (08:00)
[2017-11-17] MEDS: lactobacillus rhamnosus 10,000 MMU CELLS/CAPSULE PO SCH ×2 (08:23→19:28)
[2017-11-17] MEDS: multivitamins, therapeutics tablet PO SCH (08:23)
[2017-11-17] MEDS: atorvastatin 10mg tablet PO SCH (08:23)
[2017-11-17] MEDS: aspirin 81mg tab.chew PO SCH (08:23)
[2017-11-17] MEDS: carvedilol 6.25mg tablet PO SCH ×2 (08:23→19:28)
[2017-11-17] MEDS: clopidogrel 75mg tablet PO SCH (08:23)
[2017-11-17] MEDS: ascorbic acid 500mg tablet PO SCH (08:23)
[2017-11-17] MEDS: HYDROmorphone 1 mg/ml syringe IV PRN (08:23)
[2017-11-17] MEDS: nystatin 15 GM powder TP SCH ×3 (08:24→21:00)
[2017-11-17 08:31] LABS: BASOPHILS % (AUTO) 0.4 % (0-1); EOSINOPHILS # (AUTO) 0.2 X10'3 (0-0.9); HEMATOCRIT 28.6 % (42.0-52.0); HEMOGLOBIN 9.6 g/dl (14.0-17.9); LYMPHOCYTES # (AUTO) 0.6 X10'3 (1.1-4.8); LYMPHOCYTES % (AUTO) 5.5 % (21-51); MEAN CORPUSCULAR HEMOGLOBIN 27.7 PG (27.0-31.0); MEAN CORPUSCULAR HGB CONC 33.6 % (33.0-36.5); MEAN CORPUSCULAR VOLUME 82.6 FL (78-98); MEAN PLATELET VOLUME 8.9 FL (7.4-10.4); MONOCYTES % (AUTO) 9.1 % (2-12); PLATELET COUNT 188 X10'3 (140-440); RED BLOOD COUNT 3.46 X10'6 (4.70-6.10); RED CELL DISTRIBUTION WIDTH 15.3 % (11.5-14.5); WHITE BLOOD COUNT 10.9 X10'3 (4.5-11.0)
[2017-11-17] MEDS: insulin Lispro (HumaLOG) vial - multi-dose SQ SCH ×3 (09:05→19:28)
[2017-11-17 09:35] LABS: ALANINE AMINOTRANSFERASE 38 U/L (12-78); ALBUMIN 2.3 G/DL (3.4-5.0); ALBUMIN/GLOBULIN RATIO 0.5 (1.1-1.5); ALKALINE PHOSPHATASE 131 IU/L (46-116); ANION GAP 8 (8-16); ASPARTATE AMINO TRANSFERASE 41 U/L (10-37); BILIRUBIN,TOTAL 0.5 MG/DL (0.1-1.0); BLOOD UREA NITROGEN 15 MG/DL (7-18); BUN/CREATININE RATIO 17.9 (5.4-32.0); CALCIUM 9.3 MG/DL (8.5-10.1); CHLORIDE 95 MMOL/L (99-107); CREATININE 0.84 MG/DL (0.60-1.10); GLUCOSE 249 MG/DL (70-104); POTASSIUM 4.9 MMOL/L (3.5-5.1); SODIUM 128 MMOL/L (135-145); TOTAL CARBON DIOXIDE 25.4 MMOL/L (24-32); eGFR 89 ML/MIN
[2017-11-17 11:00] VITALS: BP 127/47
[2017-11-17 19:00] VITALS: BP 131/49
[2017-11-17] MEDS: insulin glargine (Lantus) pen - multi-dose SQ SCH (21:57)
[2017-11-17 23:00] VITALS: BP 132/42
[2017-11-18] MEDS: hyDRALAzine 10mg tablet PO SCH ×4 (00:24→23:35)
[2017-11-18] MEDS: HYDROcodone/acetaminophen 10/325mg tab PO PRN ×4 (02:15→23:45)
[2017-11-18 03:00] VITALS: BP 132/42
[2017-11-18] MEDS: K and/or MAG REPLACEMENT MC SCH (06:33)
[2017-11-18 06:48] VITALS: BP 116/49
[2017-11-18] MEDS: ascorbic acid 500mg tablet PO SCH (08:08)
[2017-11-18] MEDS: nystatin 15 GM powder TP SCH ×3 (08:08→20:48)
[2017-11-18] MEDS: carvedilol 6.25mg tablet PO SCH ×2 (08:08→19:29)
[2017-11-18] MEDS: lactobacillus rhamnosus 10,000 MMU CELLS/CAPSULE PO SCH ×2 (08:08→19:29)
[2017-11-18] MEDS: clopidogrel 75mg tablet PO SCH (08:08)
[2017-11-18] MEDS: multivitamins, therapeutics tablet PO SCH (08:08)
[2017-11-18] MEDS: atorvastatin 10mg tablet PO SCH (08:08)
[2017-11-18] MEDS: aspirin 81mg tab.chew PO SCH (08:11)
[2017-11-18] MEDS: insulin Lispro (HumaLOG) vial - multi-dose SQ SCH ×3 (08:17→19:29)
[2017-11-18 11:11] VITALS: BP 117/48
[2017-11-18 18:00] VITALS: BP 118/50
[2017-11-18] MEDS: insulin glargine (Lantus) pen - multi-dose SQ SCH (20:45)
[2017-11-18 22:00] VITALS: BP 114/55
[2017-11-19] MEDS: HYDROcodone/acetaminophen 10/325mg tab PO PRN ×2 (05:49→17:33)
[2017-11-19 06:14] LABS: BASOPHILS % (AUTO) 0.4 % (0-1); EOSINOPHILS # (AUTO) 0.3 X10'3 (0-0.9); EOSINOPHILS % (AUTO) 2.5 % (0-6); HEMATOCRIT 25.8 % (42.0-52.0); HEMOGLOBIN 8.7 g/dl (14.0-17.9); LYMPHOCYTES # (AUTO) 0.7 X10'3 (1.1-4.8); LYMPHOCYTES % (AUTO) 6.1 % (21-51); MEAN CORPUSCULAR HEMOGLOBIN 27.5 PG (27.0-31.0); MEAN CORPUSCULAR HGB CONC 33.6 % (33.0-36.5); MEAN CORPUSCULAR VOLUME 81.9 FL (78-98); MEAN PLATELET VOLUME 8.4 FL (7.4-10.4); MONOCYTES # (AUTO) 1.3 X10'3 (0-0.9); MONOCYTES % (AUTO) 11.8 % (2-12); NEUTROPHILS # (AUTO) 8.8 X10'3 (1.8-7.7); NEUTROPHILS % (AUTO) 79.2 % (42-75); PLATELET COUNT 191 X10'3 (140-440); RED BLOOD COUNT 3.16 X10'6 (4.70-6.10); RED CELL DISTRIBUTION WIDTH 15.4 % (11.5-14.5); WHITE BLOOD COUNT 11.1 X10'3 (4.5-11.0)
[2017-11-19 06:23] LABS: ALBUMIN 2.3 G/DL (3.4-5.0); ANION GAP 7 (8-16); BLOOD UREA NITROGEN 14 MG/DL (7-18); BUN/CREATININE RATIO 14.9 (5.4-32.0); CALCIUM 9.8 MG/DL (8.5-10.1); CHLORIDE 99 MMOL/L (99-107); CREATININE 0.94 MG/DL (0.60-1.10); GLUCOSE 75 MG/DL (70-104); POTASSIUM 4.8 MMOL/L (3.5-5.1); SODIUM 132 MMOL/L (135-145); TOTAL CARBON DIOXIDE 25.9 MMOL/L (24-32); eGFR 78 ML/MIN
[2017-11-19 06:47] VITALS: BP 119/52
[2017-11-19] MEDS: K and/or MAG REPLACEMENT MC SCH (07:07)
[2017-11-19] MEDS: aspirin 81mg tab.chew PO SCH (07:33)
[2017-11-19] MEDS: atorvastatin 10mg tablet PO SCH (07:33)
[2017-11-19] MEDS: clopidogrel 75mg tablet PO SCH (07:33)
[2017-11-19] MEDS: multivitamins, therapeutics tablet PO SCH (07:33)
[2017-11-19] MEDS: hyDRALAzine 10mg tablet PO SCH ×2 (07:33→16:00)
[2017-11-19] MEDS: carvedilol 6.25mg tablet PO SCH ×2 (07:33→20:06)
[2017-11-19] MEDS: lactobacillus rhamnosus 10,000 MMU CELLS/CAPSULE PO SCH ×2 (07:33→20:06)
[2017-11-19] MEDS: nystatin 15 GM powder TP SCH ×3 (07:33→20:06)
[2017-11-19] MEDS: ascorbic acid 500mg tablet PO SCH (07:33)
[2017-11-19 12:30] VITALS: BP 102/41
[2017-11-19 18:00] VITALS: BP 117/59
[2017-11-19] MEDS: insulin Lispro (HumaLOG) vial - multi-dose SQ SCH (18:58)
[2017-11-19] MEDS: insulin glargine (Lantus) pen - multi-dose SQ SCH (21:00)
[2017-11-19 22:00] VITALS: BP 103/56
[2017-11-20] MEDS: HYDROcodone/acetaminophen 10/325mg tab PO PRN ×2 (00:32→10:29)
[2017-11-20] MEDS: hyDRALAzine 10mg tablet PO SCH ×4 (00:32→23:34)
[2017-11-20 06:00] VITALS: BP 127/51
[2017-11-20 06:28] LABS: BASOPHILS % (AUTO) 0.4 % (0-1); EOSINOPHILS # (AUTO) 0.2 X10'3 (0-0.9); EOSINOPHILS % (AUTO) 2.7 % (0-6); HEMATOCRIT 25.4 % (42.0-52.0); HEMOGLOBIN 8.4 g/dl (14.0-17.9); LYMPHOCYTES # (AUTO) 0.5 X10'3 (1.1-4.8); MEAN CORPUSCULAR HEMOGLOBIN 27.5 PG (27.0-31.0); MEAN CORPUSCULAR HGB CONC 33.1 % (33.0-36.5); MEAN CORPUSCULAR VOLUME 83.1 FL (78-98); MEAN PLATELET VOLUME 8.3 FL (7.4-10.4); MONOCYTES # (AUTO) 0.9 X10'3 (0-0.9); MONOCYTES % (AUTO) 11.8 % (2-12); NEUTROPHILS % (AUTO) 78.1 % (42-75); PLATELET COUNT 177 X10'3 (140-440); RED BLOOD COUNT 3.06 X10'6 (4.70-6.10); RED CELL DISTRIBUTION WIDTH 14.9 % (11.5-14.5); WHITE BLOOD COUNT 7.7 X10'3 (4.5-11.0)
[2017-11-20 06:47] LABS: ALBUMIN 2.3 G/DL (3.4-5.0); ANION GAP 6 (8-16); BLOOD UREA NITROGEN 15 MG/DL (7-18); BUN/CREATININE RATIO 15.6 (5.4-32.0); CALCIUM 9.4 MG/DL (8.5-10.1); CHLORIDE 97 MMOL/L (99-107); CREATININE 0.96 MG/DL (0.60-1.10); GLUCOSE 132 MG/DL (70-104); POTASSIUM 4.7 MMOL/L (3.5-5.1); SODIUM 129 MMOL/L (135-145); TOTAL CARBON DIOXIDE 25.9 MMOL/L (24-32); eGFR 76 ML/MIN
[2017-11-20] MEDS: K and/or MAG REPLACEMENT MC SCH (08:00)
[2017-11-20] MEDS: carvedilol 6.25mg tablet PO SCH ×2 (08:00→19:09)
[2017-11-20] MEDS: multivitamins, therapeutics tablet PO SCH (08:06)
[2017-11-20] MEDS: clopidogrel 75mg tablet PO SCH (08:06)
[2017-11-20] MEDS: lactobacillus rhamnosus 10,000 MMU CELLS/CAPSULE PO SCH ×2 (08:06→19:09)
[2017-11-20] MEDS: ascorbic acid 500mg tablet PO SCH (08:06)
[2017-11-20] MEDS: atorvastatin 10mg tablet PO SCH (08:06)
[2017-11-20] MEDS: aspirin 81mg tab.chew PO SCH (08:07)
[2017-11-20] MEDS: nystatin 15 GM powder TP SCH ×3 (08:07→20:48)
[2017-11-20] MEDS: magnesium hydroxide 30ml (MOM) UD suspension PO PRN (10:56)
[2017-11-20] MEDS: insulin Lispro (HumaLOG) vial - multi-dose SQ SCH ×3 (13:40→20:48)
[2017-11-20] MEDS: insulin glargine (Lantus) pen - multi-dose SQ SCH (20:46)
[2017-11-20 22:00] VITALS: BP 96/46
[2017-11-21 05:00] VITALS: BP 120/49
[2017-11-21 06:14] LABS: BASOPHILS % (AUTO) 0.2 % (0-1); EOSINOPHILS # (AUTO) 0.2 X10'3 (0-0.9); EOSINOPHILS % (AUTO) 1.6 % (0-6); HEMATOCRIT 25.3 % (42.0-52.0); HEMOGLOBIN 8.4 g/dl (14.0-17.9); LYMPHOCYTES # (AUTO) 0.5 X10'3 (1.1-4.8); LYMPHOCYTES % (AUTO) 4.9 % (21-51); MEAN CORPUSCULAR HEMOGLOBIN 27.4 PG (27.0-31.0); MEAN CORPUSCULAR HGB CONC 33.4 % (33.0-36.5); MEAN CORPUSCULAR VOLUME 82.2 FL (78-98); MEAN PLATELET VOLUME 8.2 FL (7.4-10.4); MONOCYTES # (AUTO) 1.3 X10'3 (0-0.9); MONOCYTES % (AUTO) 11.6 % (2-12); NEUTROPHILS # (AUTO) 8.9 X10'3 (1.8-7.7); NEUTROPHILS % (AUTO) 81.7 % (42-75); PLATELET COUNT 186 X10'3 (140-440); RED BLOOD COUNT 3.07 X10'6 (4.70-6.10); RED CELL DISTRIBUTION WIDTH 14.9 % (11.5-14.5); WHITE BLOOD COUNT 10.9 X10'3 (4.5-11.0)
[2017-11-21 06:22] LABS: ALBUMIN 2.3 G/DL (3.4-5.0); ANION GAP 4 (8-16); BLOOD UREA NITROGEN 26 MG/DL (7-18); CALCIUM 9.2 MG/DL (8.5-10.1); CHLORIDE 96 MMOL/L (99-107); CREATININE 1.04 MG/DL (0.60-1.10); GLUCOSE 167 MG/DL (70-104); POTASSIUM 4.8 MMOL/L (3.5-5.1); SODIUM 128 MMOL/L (135-145); eGFR 70 ML/MIN
[2017-11-21] MEDS: hyDRALAzine 10mg tablet PO SCH ×3 (07:10→23:41)
[2017-11-21] MEDS: K and/or MAG REPLACEMENT MC SCH (07:11)
[2017-11-21] MEDS: atorvastatin 10mg tablet PO SCH (07:34)
[2017-11-21] MEDS: multivitamins, therapeutics tablet PO SCH (07:34)
[2017-11-21] MEDS: lactobacillus rhamnosus 10,000 MMU CELLS/CAPSULE PO SCH ×2 (07:34→20:37)
[2017-11-21] MEDS: aspirin 81mg tab.chew PO SCH (07:34)
[2017-11-21] MEDS: clopidogrel 75mg tablet PO SCH (07:34)
[2017-11-21] MEDS: carvedilol 6.25mg tablet PO SCH ×2 (07:34→20:37)
[2017-11-21] MEDS: ascorbic acid 500mg tablet PO SCH (07:34)
[2017-11-21] MEDS: nystatin 15 GM powder TP SCH ×3 (07:37→20:38)
[2017-11-21] MEDS: insulin Lispro (HumaLOG) vial - multi-dose SQ SCH ×3 (08:34→19:21)
[2017-11-21] MEDS: HYDROcodone/acetaminophen 10/325mg tab PO PRN ×3 (09:54→23:40)
[2017-11-21 10:03] VITALS: BP 115/68
[2017-11-21] MEDS: gabapentin 100mg capsule PO SCH ×2 (15:45→23:40)
[2017-11-21 18:00] VITALS: BP 128/69
[2017-11-21] MEDS: insulin glargine (Lantus) pen - multi-dose SQ SCH (21:34)
[2017-11-21 22:00] VITALS: BP 114/44
[2017-11-22 06:00] VITALS: BP 122/53
[2017-11-22 06:56] LABS: BASOPHILS % (AUTO) 0.4 % (0-1); EOSINOPHILS # (AUTO) 0.2 X10'3 (0-0.9); HEMATOCRIT 24.1 % (42.0-52.0); HEMOGLOBIN 8.1 g/dl (14.0-17.9); LYMPHOCYTES # (AUTO) 0.8 X10'3 (1.1-4.8); LYMPHOCYTES % (AUTO) 7.3 % (21-51); MEAN CORPUSCULAR HEMOGLOBIN 27.6 PG (27.0-31.0); MEAN CORPUSCULAR HGB CONC 33.6 % (33.0-36.5); MEAN CORPUSCULAR VOLUME 82.1 FL (78-98); MEAN PLATELET VOLUME 7.9 FL (7.4-10.4); MONOCYTES # (AUTO) 1.2 X10'3 (0-0.9); MONOCYTES % (AUTO) 11.6 % (2-12); NEUTROPHILS # (AUTO) 8.2 X10'3 (1.8-7.7); NEUTROPHILS % (AUTO) 78.7 % (42-75); PLATELET COUNT 173 X10'3 (140-440); RED BLOOD COUNT 2.94 X10'6 (4.70-6.10); RED CELL DISTRIBUTION WIDTH 15.2 % (11.5-14.5); WHITE BLOOD COUNT 10.4 X10'3 (4.5-11.0)
[2017-11-22 07:16] LABS: ALBUMIN 2.2 G/DL (3.4-5.0); ANION GAP 6 (8-16); BLOOD UREA NITROGEN 21 MG/DL (7-18); BUN/CREATININE RATIO 21.2 (5.4-32.0); CALCIUM 9.1 MG/DL (8.5-10.1); CHLORIDE 98 MMOL/L (99-107); CREATININE 0.99 MG/DL (0.60-1.10); GLUCOSE 161 MG/DL (70-104); POTASSIUM 5.2 MMOL/L (3.5-5.1); SODIUM 129 MMOL/L (135-145); TOTAL CARBON DIOXIDE 24.6 MMOL/L (24-32); eGFR 74 ML/MIN
[2017-11-22] MEDS: K and/or MAG REPLACEMENT MC SCH (08:00)
[2017-11-22] MEDS: aspirin 81mg tab.chew PO SCH (08:25)
[2017-11-22] MEDS: atorvastatin 10mg tablet PO SCH (08:25)
[2017-11-22] MEDS: carvedilol 6.25mg tablet PO SCH ×2 (08:25→19:52)
[2017-11-22] MEDS: gabapentin 100mg capsule PO SCH (08:25)
[2017-11-22] MEDS: lactobacillus rhamnosus 10,000 MMU CELLS/CAPSULE PO SCH ×2 (08:25→19:52)
[2017-11-22] MEDS: multivitamins, therapeutics tablet PO SCH (08:25)
[2017-11-22] MEDS: clopidogrel 75mg tablet PO SCH (08:26)
[2017-11-22] MEDS: hyDRALAzine 10mg tablet PO SCH ×2 (08:26→17:16)
[2017-11-22] MEDS: nystatin 15 GM powder TP SCH ×3 (08:26→21:09)
[2017-11-22] MEDS: ascorbic acid 500mg tablet PO SCH (08:26)
[2017-11-22] MEDS: HYDROcodone/acetaminophen 10/325mg tab PO PRN ×2 (08:33→20:04)
[2017-11-22] MEDS: insulin Lispro (HumaLOG) vial - multi-dose SQ SCH ×2 (08:37→16:50)
[2017-11-22 10:00] VITALS: BP 110/42
[2017-11-22] MEDS: gabapentin 300mg capsule PO SCH (17:17)
[2017-11-22 18:00] VITALS: BP 124/65
[2017-11-22] MEDS: insulin glargine (Lantus) pen - multi-dose SQ SCH (21:08)
[2017-11-22 22:00] VITALS: BP 107/51
[2017-11-23 07:27] LABS: BASOPHILS % (AUTO) 0.3 % (0-1); EOSINOPHILS # (AUTO) 0.2 X10'3 (0-0.9); EOSINOPHILS % (AUTO) 2.6 % (0-6); HEMATOCRIT 23.6 % (42.0-52.0); HEMOGLOBIN 7.8 g/dl (14.0-17.9); LYMPHOCYTES # (AUTO) 0.6 X10'3 (1.1-4.8); LYMPHOCYTES % (AUTO) 6.9 % (21-51); MEAN CORPUSCULAR HEMOGLOBIN 27.5 PG (27.0-31.0); MEAN CORPUSCULAR HGB CONC 33.1 % (33.0-36.5); MEAN CORPUSCULAR VOLUME 83.3 FL (78-98); MEAN PLATELET VOLUME 7.8 FL (7.4-10.4); MONOCYTES % (AUTO) 11.8 % (2-12); NEUTROPHILS # (AUTO) 6.5 X10'3 (1.8-7.7); NEUTROPHILS % (AUTO) 78.4 % (42-75); PLATELET COUNT 179 X10'3 (140-440); RED BLOOD COUNT 2.84 X10'6 (4.70-6.10); RED CELL DISTRIBUTION WIDTH 15.7 % (11.5-14.5); WHITE BLOOD COUNT 8.3 X10'3 (4.5-11.0)
[2017-11-23] MEDS: K and/or MAG REPLACEMENT MC SCH (08:00)
[2017-11-23 08:23] LABS: ALBUMIN 2.2 G/DL (3.4-5.0); ANION GAP 7 (8-16); BLOOD UREA NITROGEN 16 MG/DL (7-18); CALCIUM 9.2 MG/DL (8.5-10.1); CHLORIDE 98 MMOL/L (99-107); GLUCOSE 96 MG/DL (70-104); POTASSIUM 4.9 MMOL/L (3.5-5.1); SODIUM 131 MMOL/L (135-145); TOTAL CARBON DIOXIDE 25.8 MMOL/L (24-32); eGFR 73 ML/MIN
[2017-11-23] MEDS: insulin Lispro (HumaLOG) vial - multi-dose SQ SCH ×3 (09:03→18:59)
[2017-11-23] MEDS: lactobacillus rhamnosus 10,000 MMU CELLS/CAPSULE PO SCH ×2 (09:06→20:10)
[2017-11-23] MEDS: carvedilol 6.25mg tablet PO SCH ×2 (09:06→20:10)
[2017-11-23] MEDS: HYDROcodone/acetaminophen 10/325mg tab PO PRN ×3 (09:06→23:44)
[2017-11-23] MEDS: atorvastatin 10mg tablet PO SCH (09:07)
[2017-11-23] MEDS: ascorbic acid 500mg tablet PO SCH (09:07)
[2017-11-23] MEDS: clopidogrel 75mg tablet PO SCH (09:07)
[2017-11-23] MEDS: hyDRALAzine 10mg tablet PO SCH ×4 (09:07→23:44)
[2017-11-23] MEDS: multivitamins, therapeutics tablet PO SCH (09:07)
[2017-11-23] MEDS: gabapentin 300mg capsule PO SCH ×4 (09:07→23:44)
[2017-11-23] MEDS: aspirin 81mg tab.chew PO SCH (09:07)
[2017-11-23] MEDS: nystatin 15 GM powder TP SCH ×3 (09:10→21:14)
[2017-11-23 10:00] VITALS: BP 115/52
[2017-11-23] MEDS: baclofen 10mg tablet PO PRN (15:52)
[2017-11-23 18:00] VITALS: BP 153/45
[2017-11-23] MEDS: insulin glargine (Lantus) pen - multi-dose SQ SCH (21:12)
[2017-11-23 22:00] VITALS: BP 111/44
[2017-11-24] MEDS: HYDROcodone/acetaminophen 10/325mg tab PO PRN ×2 (05:39→23:58)
[2017-11-24] MEDS: K and/or MAG REPLACEMENT MC SCH (08:00)
[2017-11-24] MEDS: ascorbic acid 500mg tablet PO SCH (08:11)
[2017-11-24] MEDS: multivitamins, therapeutics tablet PO SCH (08:11)
[2017-11-24] MEDS: gabapentin 300mg capsule PO SCH ×3 (08:11→23:58)
[2017-11-24] MEDS: lactobacillus rhamnosus 10,000 MMU CELLS/CAPSULE PO SCH ×2 (08:11→20:40)
[2017-11-24] MEDS: hyDRALAzine 10mg tablet PO SCH ×2 (08:11→15:45)
[2017-11-24] MEDS: aspirin 81mg tab.chew PO SCH (08:11)
[2017-11-24] MEDS: nystatin 15 GM powder TP SCH ×3 (08:11→21:00)
[2017-11-24] MEDS: carvedilol 6.25mg tablet PO SCH ×2 (08:11→20:40)
[2017-11-24] MEDS: clopidogrel 75mg tablet PO SCH (08:12)
[2017-11-24] MEDS: atorvastatin 10mg tablet PO SCH (08:12)
[2017-11-24] MEDS: insulin Lispro (HumaLOG) vial - multi-dose SQ SCH ×3 (09:31→20:56)
[2017-11-24 12:01] VITALS: BP 124/54
[2017-11-24 18:00] VITALS: BP 123/64
[2017-11-24 22:00] VITALS: BP 101/42
[2017-11-24] MEDS: insulin glargine (Lantus) pen - multi-dose SQ SCH (23:57)
[2017-11-25 06:00] VITALS: BP 109/46
[2017-11-25] MEDS: K and/or MAG REPLACEMENT MC SCH (07:45)
[2017-11-25] MEDS: hyDRALAzine 10mg tablet PO SCH ×3 (07:57→16:00)
[2017-11-25] MEDS: carvedilol 6.25mg tablet PO SCH ×2 (08:02→19:50)
[2017-11-25] MEDS: clopidogrel 75mg tablet PO SCH (08:02)
[2017-11-25] MEDS: nystatin 15 GM powder TP SCH ×3 (08:02→21:07)
[2017-11-25] MEDS: ascorbic acid 500mg tablet PO SCH (08:02)
[2017-11-25] MEDS: gabapentin 300mg capsule PO SCH ×2 (08:02→16:21)
[2017-11-25] MEDS: atorvastatin 10mg tablet PO SCH (08:02)
[2017-11-25] MEDS: multivitamins, therapeutics tablet PO SCH (08:02)
[2017-11-25] MEDS: aspirin 81mg tab.chew PO SCH (08:02)
[2017-11-25] MEDS: lactobacillus rhamnosus 10,000 MMU CELLS/CAPSULE PO SCH ×2 (08:02→19:50)
[2017-11-25 10:26] VITALS: BP 106/68
[2017-11-25] MEDS: magnesium hydroxide 30ml (MOM) UD suspension PO PRN (16:57)
[2017-11-25 18:00] VITALS: BP 109/46
[2017-11-25] MEDS: ipratropium/albuterol 3ml nebule NEB PRN (20:25)
[2017-11-25] MEDS: insulin Lispro (HumaLOG) vial - multi-dose SQ SCH (21:01)
[2017-11-25] MEDS: insulin glargine (Lantus) pen - multi-dose SQ SCH (21:03)
[2017-11-25] MEDS: HYDROcodone/acetaminophen 10/325mg tab PO PRN (21:05)
[2017-11-25 22:00] VITALS: BP 95/50
[2017-11-26] MEDS: magnesium hydroxide 30ml (MOM) UD suspension PO PRN (05:44)
[2017-11-26] MEDS: HYDROcodone/acetaminophen 10/325mg tab PO PRN (05:49)
[2017-11-26] MEDS: K and/or MAG REPLACEMENT MC SCH (07:05)
[2017-11-26 07:22] VITALS: BP 110/73
[2017-11-26] MEDS: clopidogrel 75mg tablet PO SCH (07:37)
[2017-11-26] MEDS: gabapentin 300mg capsule PO SCH ×3 (07:37→15:47)
[2017-11-26] MEDS: ascorbic acid 500mg tablet PO SCH (07:38)
[2017-11-26] MEDS: atorvastatin 10mg tablet PO SCH (07:38)
[2017-11-26] MEDS: aspirin 81mg tab.chew PO SCH (07:38)
[2017-11-26] MEDS: lactobacillus rhamnosus 10,000 MMU CELLS/CAPSULE PO SCH ×2 (07:38→21:20)
[2017-11-26] MEDS: baclofen 10mg tablet PO PRN (07:38)
[2017-11-26] MEDS: multivitamins, therapeutics tablet PO SCH (07:38)
[2017-11-26] MEDS: carvedilol 6.25mg tablet PO SCH ×2 (07:38→21:20)
[2017-11-26] MEDS: hyDRALAzine 10mg tablet PO SCH ×3 (07:48→15:47)
[2017-11-26] MEDS: nystatin 15 GM powder TP SCH ×3 (07:48→21:00)
[2017-11-26] MEDS: insulin Lispro (HumaLOG) vial - multi-dose SQ SCH (09:19)
[2017-11-26 10:55] VITALS: BP 103/59
[2017-11-26 18:00] VITALS: BP 116/58
[2017-11-26] MEDS: insulin glargine (Lantus) pen - multi-dose SQ SCH (21:33)
[2017-11-26 22:00] VITALS: BP 129/59
[2017-11-27] MEDS: HYDROcodone/acetaminophen 10/325mg tab PO PRN ×3 (02:06→19:07)
[2017-11-27] MEDS: gabapentin 300mg capsule PO SCH ×4 (02:06→15:44)
[2017-11-27] MEDS: atorvastatin 10mg tablet PO SCH (07:45)
[2017-11-27] MEDS: ascorbic acid 500mg tablet PO SCH (07:45)
[2017-11-27] MEDS: lactobacillus rhamnosus 10,000 MMU CELLS/CAPSULE PO SCH ×2 (07:45→20:52)
[2017-11-27] MEDS: multivitamins, therapeutics tablet PO SCH (07:45)
[2017-11-27] MEDS: carvedilol 6.25mg tablet PO SCH ×2 (07:45→20:52)
[2017-11-27] MEDS: hyDRALAzine 10mg tablet PO SCH ×4 (07:45→23:17)
[2017-11-27] MEDS: clopidogrel 75mg tablet PO SCH (07:45)
[2017-11-27] MEDS: aspirin 81mg tab.chew PO SCH (07:46)
[2017-11-27] MEDS: K and/or MAG REPLACEMENT MC SCH (08:00)
[2017-11-27] MEDS: nystatin 15 GM powder TP SCH ×3 (08:00→20:54)
[2017-11-27] MEDS: insulin Lispro (HumaLOG) vial - multi-dose SQ SCH ×2 (09:15→19:07)
[2017-11-27 10:00] VITALS: BP 104/61
[2017-11-27] MEDS: vancomycin/NS 1 GM ADD-VANTAGE 250 ML IV SCH (13:44)
[2017-11-27] MEDS: enoxaparin 40mg/0.4ml syringe SUBCUT SCH (13:44)
[2017-11-27 14:46] LABS: ALBUMIN 2.1 G/DL (3.4-5.0); ANION GAP 3 (8-16); BLOOD UREA NITROGEN 14 MG/DL (7-18); BUN/CREATININE RATIO 14.4 (5.4-32.0); CHLORIDE 94 MMOL/L (99-107); CREATININE 0.97 MG/DL (0.60-1.10); GLUCOSE 90 MG/DL (70-104); POTASSIUM 4.8 MMOL/L (3.5-5.1); SODIUM 127 MMOL/L (135-145); TOTAL CARBON DIOXIDE 30.4 MMOL/L (24-32); eGFR 75 ML/MIN
[2017-11-27 18:00] VITALS: BP 140/59
[2017-11-27] MEDS ORDERED: vancomycin/NS 1 GM ADD-VANTAGE 250 ML IV SCH (20:00)
[2017-11-27] MEDS: metroNIDAZOLE-Flagyl 500mg/NS 100 ML IV SCH (20:53)
[2017-11-27] MEDS: insulin glargine (Lantus) pen - multi-dose SQ SCH (21:13)
[2017-11-27 22:00] VITALS: BP 115/63
[2017-11-28] MEDS: gabapentin 300mg capsule PO SCH ×5 (00:16→23:49)
[2017-11-28] MEDS: vancomycin/NS 1 GM ADD-VANTAGE 250 ML IV SCH ×2 (02:27→13:59)
[2017-11-28 05:57] LABS: BASOPHILS % (AUTO) 0.3 % (0-1); EOSINOPHILS # (AUTO) 0.3 X10'3 (0-0.9); EOSINOPHILS % (AUTO) 2.1 % (0-6); HEMATOCRIT 26.4 % (42.0-52.0); LYMPHOCYTES # (AUTO) 0.5 X10'3 (1.1-4.8); MEAN CORPUSCULAR HEMOGLOBIN 27.6 PG (27.0-31.0); MEAN CORPUSCULAR VOLUME 81.1 FL (78-98); MEAN PLATELET VOLUME 8.2 FL (7.4-10.4); MONOCYTES # (AUTO) 1.1 X10'3 (0-0.9); MONOCYTES % (AUTO) 8.5 % (2-12); NEUTROPHILS # (AUTO) 10.9 X10'3 (1.8-7.7); NEUTROPHILS % (AUTO) 85.1 % (42-75); PLATELET COUNT 227 X10'3 (140-440); RED BLOOD COUNT 3.25 X10'6 (4.70-6.10); WHITE BLOOD COUNT 12.9 X10'3 (4.5-11.0)
[2017-11-28 06:00] VITALS: BP 146/73
[2017-11-28 06:15] LABS: ALBUMIN 2.2 G/DL (3.4-5.0); ANION GAP 10 (8-16); BLOOD UREA NITROGEN 13 MG/DL (7-18); BUN/CREATININE RATIO 16.7 (5.4-32.0); CALCIUM 9.6 MG/DL (8.5-10.1); CHLORIDE 96 MMOL/L (99-107); CREATININE 0.78 MG/DL (0.60-1.10); GLUCOSE 67 MG/DL (70-104); POTASSIUM 4.9 MMOL/L (3.5-5.1); SODIUM 132 MMOL/L (135-145); eGFR > 90 ML/MIN
[2017-11-28] MEDS: metroNIDAZOLE-Flagyl 500mg/NS 100 ML IV SCH ×2 (07:13→19:34)
[2017-11-28] MEDS: clopidogrel 75mg tablet PO SCH (08:00)
[2017-11-28] MEDS: multivitamins, therapeutics tablet PO SCH (08:00)
[2017-11-28] MEDS: enoxaparin 40mg/0.4ml syringe SUBCUT SCH (08:00)
[2017-11-28] MEDS: hyDRALAzine 10mg tablet PO SCH ×3 (08:00→23:31)
[2017-11-28] MEDS: ascorbic acid 500mg tablet PO SCH (08:00)
[2017-11-28] MEDS: K and/or MAG REPLACEMENT MC SCH (08:00)
[2017-11-28] MEDS: aspirin 81mg tab.chew PO SCH (08:30)
[2017-11-28] MEDS: lactobacillus rhamnosus 10,000 MMU CELLS/CAPSULE PO SCH ×2 (08:41→19:33)
[2017-11-28] MEDS: levoFLOXACIN-Levaquin 500mg/D5 100 ML IV SCH (08:41)
[2017-11-28] MEDS: atorvastatin 10mg tablet PO SCH (08:42)
[2017-11-28] MEDS: carvedilol 6.25mg tablet PO SCH ×2 (08:42→19:29)
[2017-11-28] MEDS: HYDROcodone/acetaminophen 10/325mg tab PO PRN ×2 (08:43→19:34)
[2017-11-28] MEDS: nystatin 15 GM powder TP SCH ×3 (08:51→21:23)
[2017-11-28 10:00] VITALS: BP 100/51
[2017-11-28 18:00] VITALS: BP 103/49
[2017-11-28] MEDS: magnesium hydroxide 30ml (MOM) UD suspension PO PRN (19:39)
[2017-11-28] MEDS: insulin Lispro (HumaLOG) vial - multi-dose SQ SCH (19:57)
[2017-11-28] MEDS: insulin glargine (Lantus) pen - multi-dose SQ SCH (21:22)
[2017-11-28 22:00] VITALS: BP 109/49
[2017-11-28] MEDS: benzocaine/menthol oral lozeng 1 EACH BOX MM PRN (23:49)
[2017-11-29] VITALS (8 sets, daily range): BP systolic 102–140; BP diastolic 40–75
[2017-11-29] MEDS ORDERED: VANCOMYCIN LEVEL IV NR (01:30)
[2017-11-29 01:42] LABS: BASOPHILS % (AUTO) 0.4 % (0-1); EOSINOPHILS # (AUTO) 0.1 X10'3 (0-0.9); EOSINOPHILS % (AUTO) 1.6 % (0-6); HEMATOCRIT 22.7 % (42.0-52.0); HEMOGLOBIN 7.6 g/dl (14.0-17.9); LYMPHOCYTES # (AUTO) 0.4 X10'3 (1.1-4.8); LYMPHOCYTES % (AUTO) 5.5 % (21-51); MEAN CORPUSCULAR HEMOGLOBIN 27.7 PG (27.0-31.0); MEAN CORPUSCULAR HGB CONC 33.6 % (33.0-36.5); MEAN CORPUSCULAR VOLUME 82.3 FL (78-98); MEAN PLATELET VOLUME 7.8 FL (7.4-10.4); MONOCYTES # (AUTO) 0.8 X10'3 (0-0.9); MONOCYTES % (AUTO) 11.3 % (2-12); NEUTROPHILS % (AUTO) 81.2 % (42-75); PLATELET COUNT 200 X10'3 (140-440); RED BLOOD COUNT 2.76 X10'6 (4.70-6.10); WHITE BLOOD COUNT 7.3 X10'3 (4.5-11.0)
[2017-11-29 01:56] LABS: ANION GAP 5 (8-16); BLOOD UREA NITROGEN 15 MG/DL (7-18); BUN/CREATININE RATIO 17.2 (5.4-32.0); CALCIUM 9.1 MG/DL (8.5-10.1); CHLORIDE 96 MMOL/L (99-107); CREATININE 0.87 MG/DL (0.60-1.10); GLUCOSE 155 MG/DL (70-104); POTASSIUM 4.3 MMOL/L (3.5-5.1); SODIUM 128 MMOL/L (135-145); TOTAL CARBON DIOXIDE 27.4 MMOL/L (24-32); VANCOMYCIN,TROUGH 11.5 UG/ML (6.0-14.0); eGFR 86 ML/MIN
[2017-11-29] MEDS: vancomycin/NS 1 GM ADD-VANTAGE 250 ML IV SCH (02:12)
[2017-11-29] MEDS: benzocaine/menthol oral lozeng 1 EACH BOX MM PRN (03:31)
[2017-11-29] MEDS: hyDRALAzine 10mg tablet PO SCH (07:04)
[2017-11-29] MEDS: K and/or MAG REPLACEMENT MC SCH (07:05)
[2017-11-29] MEDS: carvedilol 6.25mg tablet PO SCH ×2 (07:07→19:53)
[2017-11-29] MEDS: ascorbic acid 500mg tablet PO SCH (07:21)
[2017-11-29] MEDS: multivitamins, therapeutics tablet PO SCH (07:22)
[2017-11-29] MEDS: clopidogrel 75mg tablet PO SCH (07:22)
[2017-11-29] MEDS: gabapentin 300mg capsule PO SCH ×2 (07:23→16:00)
[2017-11-29] MEDS: atorvastatin 10mg tablet PO SCH (07:23)
[2017-11-29] MEDS: lactobacillus rhamnosus 10,000 MMU CELLS/CAPSULE PO SCH ×2 (07:23→22:25)
[2017-11-29] MEDS: metroNIDAZOLE-Flagyl 500mg/NS 100 ML IV SCH ×2 (07:24→22:25)
[2017-11-29] MEDS: enoxaparin 40mg/0.4ml syringe SUBCUT SCH ×2 (07:24→08:00)
[2017-11-29] MEDS: HYDROcodone/acetaminophen 10/325mg tab PO PRN ×2 (07:31→13:40)
[2017-11-29] MEDS: nystatin 15 GM powder TP SCH (08:00)
[2017-11-29] MEDS: baclofen 10mg tablet PO PRN (09:12)
[2017-11-29] MEDS: aspirin 81mg tab.chew PO SCH (09:12)
[2017-11-29] MEDS: insulin Lispro (HumaLOG) vial - multi-dose SQ SCH ×3 (09:12→20:00)
[2017-11-29] MEDS: levoFLOXACIN-Levaquin 500mg/D5 100 ML IV SCH (09:13)
[2017-11-29] MEDS ORDERED: hyDRALAzine 10mg tablet PO PRN (11:10)
[2017-11-29] MEDS: vancomycin inj 1,250 MG in normal saline 250ml IV soln 250 ML IV SCH (13:41)
[2017-11-29] MEDS ORDERED: ringers solution, lacted 1,000 ML IV ONE (15:04)
[2017-11-29] MEDS: ipratropium/albuterol 3ml nebule NEB PRN (17:10)
[2017-11-30] VITALS (8 sets, daily range): BP systolic 133–155; BP diastolic 57–79
[2017-11-30] MEDS: vancomycin inj 1,250 MG in normal saline 250ml IV soln 250 ML IV SCH ×2 (04:00→13:47)
[2017-11-30 07:19] LABS: BASOPHILS % (AUTO) 0.3 % (0-1); EOSINOPHILS # (AUTO) 0.2 X10'3 (0-0.9); EOSINOPHILS % (AUTO) 2.4 % (0-6); HEMATOCRIT 30.9 % (42.0-52.0); HEMOGLOBIN 10.4 g/dl (14.0-17.9); LYMPHOCYTES # (AUTO) 0.5 X10'3 (1.1-4.8); LYMPHOCYTES % (AUTO) 5.1 % (21-51); MEAN CORPUSCULAR HEMOGLOBIN 28.4 PG (27.0-31.0); MEAN CORPUSCULAR HGB CONC 33.6 % (33.0-36.5); MEAN CORPUSCULAR VOLUME 84.5 FL (78-98); MEAN PLATELET VOLUME 8.1 FL (7.4-10.4); MONOCYTES # (AUTO) 0.9 X10'3 (0-0.9); MONOCYTES % (AUTO) 9.6 % (2-12); NEUTROPHILS # (AUTO) 7.4 X10'3 (1.8-7.7); NEUTROPHILS % (AUTO) 82.6 % (42-75); PLATELET COUNT 210 X10'3 (140-440); RED BLOOD COUNT 3.66 X10'6 (4.70-6.10); RED CELL DISTRIBUTION WIDTH 15.3 % (11.5-14.5); WHITE BLOOD COUNT 8.9 X10'3 (4.5-11.0)
[2017-11-30 07:37] LABS: ANION GAP 7 (8-16); BLOOD UREA NITROGEN 12 MG/DL (7-18); BUN/CREATININE RATIO 13.2 (5.4-32.0); CALCIUM 9.2 MG/DL (8.5-10.1); CHLORIDE 99 MMOL/L (99-107); CREATININE 0.91 MG/DL (0.60-1.10); GLUCOSE 87 MG/DL (70-104); POTASSIUM 4.2 MMOL/L (3.5-5.1); SODIUM 132 MMOL/L (135-145); TOTAL CARBON DIOXIDE 25.8 MMOL/L (24-32); eGFR 81 ML/MIN
[2017-11-30] MEDS: K and/or MAG REPLACEMENT MC SCH (08:00)
[2017-11-30] MEDS: ascorbic acid 500mg tablet PO SCH ×2 (08:55→09:20)
[2017-11-30] MEDS: gabapentin 300mg capsule PO SCH ×5 (08:55→23:27)
[2017-11-30] MEDS: multivitamins, therapeutics tablet PO SCH ×2 (08:55→09:19)
[2017-11-30] MEDS: atorvastatin 10mg tablet PO SCH (08:55)
[2017-11-30] MEDS: carvedilol 6.25mg tablet PO SCH ×2 (08:55→21:09)
[2017-11-30] MEDS: levoFLOXACIN-Levaquin 500mg/D5 100 ML IV SCH (08:55)
[2017-11-30] MEDS: lactobacillus rhamnosus 10,000 MMU CELLS/CAPSULE PO SCH ×3 (08:55→21:09)
[2017-11-30] MEDS: HYDROcodone/acetaminophen 10/325mg tab PO PRN ×4 (10:49→23:27)
[2017-11-30] MEDS: metroNIDAZOLE-Flagyl 500mg/NS 100 ML IV SCH ×2 (10:50→21:10)
[2017-11-30] MEDS: insulin Lispro (HumaLOG) vial - multi-dose SQ SCH (13:46)
[2017-11-30] MEDS: magnesium hydroxide 30ml (MOM) UD suspension PO PRN (21:08)
[2017-11-30] MEDS: mag hydrox/Alum hydrox/simeth 30ml oral suspension PO PRN (21:09)
[2017-11-30] MEDS: baclofen 10mg tablet PO PRN (21:09)
[2017-12-01] VITALS (16 sets, daily range): BP systolic 88–161; BP diastolic 42–111
[2017-12-01] MEDS ORDERED: VANCOMYCIN LEVEL IV ONE (01:30)
[2017-12-01] MEDS: vancomycin inj 1,250 MG in normal saline 250ml IV soln 250 ML IV SCH ×2 (02:39→14:18)
[2017-12-01 03:14] LABS: BASOPHILS % (AUTO) 0.3 % (0-1); EOSINOPHILS # (AUTO) 0.2 X10'3 (0-0.9); HEMATOCRIT 32.6 % (42.0-52.0); HEMOGLOBIN 11.1 g/dl (14.0-17.9); LYMPHOCYTES # (AUTO) 0.4 X10'3 (1.1-4.8); LYMPHOCYTES % (AUTO) 3.3 % (21-51); MEAN CORPUSCULAR HEMOGLOBIN 28.2 PG (27.0-31.0); MEAN CORPUSCULAR HGB CONC 34.1 % (33.0-36.5); MEAN CORPUSCULAR VOLUME 82.8 FL (78-98); MONOCYTES % (AUTO) 8.4 % (2-12); NEUTROPHILS # (AUTO) 10.3 X10'3 (1.8-7.7); PLATELET COUNT 231 X10'3 (140-440); RED BLOOD COUNT 3.94 X10'6 (4.70-6.10); RED CELL DISTRIBUTION WIDTH 15.2 % (11.5-14.5)
[2017-12-01 03:33] LABS: ANION GAP 6 (8-16); BLOOD UREA NITROGEN 11 MG/DL (7-18); BUN/CREATININE RATIO 16.7 (5.4-32.0); CALCIUM 9.1 MG/DL (8.5-10.1); CHLORIDE 96 MMOL/L (99-107); CREATININE 0.66 MG/DL (0.60-1.10); GLUCOSE 132 MG/DL (70-104); POTASSIUM 4.3 MMOL/L (3.5-5.1); SODIUM 130 MMOL/L (135-145); TOTAL CARBON DIOXIDE 27.7 MMOL/L (24-32); VANCOMYCIN,TROUGH 18.2 UG/ML (6.0-14.0); eGFR > 90 ML/MIN
[2017-12-01] MEDS: carvedilol 6.25mg tablet PO SCH ×3 (07:40→21:09)
[2017-12-01] MEDS ORDERED: fentaNYL/PF 50MCG/1 ML 2ML syringe ONE (07:45)
[2017-12-01] MEDS ORDERED: midazolam 2 mg/2 ml injection ONE (07:46)
[2017-12-01] MEDS ORDERED: sevoflurane 250ml liquid IH ONE (07:52)
[2017-12-01] MEDS: lactobacillus rhamnosus 10,000 MMU CELLS/CAPSULE PO SCH ×2 (08:00→21:08)
[2017-12-01] MEDS: multivitamins, therapeutics tablet PO SCH (08:00)
[2017-12-01] MEDS: ascorbic acid 500mg tablet PO SCH (08:00)
[2017-12-01] MEDS: atorvastatin 10mg tablet PO SCH (08:00)
[2017-12-01] MEDS: K and/or MAG REPLACEMENT MC SCH (08:00)
[2017-12-01] MEDS: metroNIDAZOLE-Flagyl 500mg/NS 100 ML IV SCH ×2 (08:00→20:00)
[2017-12-01] MEDS ORDERED: ringers solution, lacted 1,000 ML IV SCH (08:11)
[2017-12-01] MEDS ORDERED: fentaNYL/PF 50MCG/1 ML 2ML syringe IV PRN ×2 (08:15)
[2017-12-01] MEDS ORDERED: morphine 4 MG/ML inj SYRINge IV PRN (08:15)
[2017-12-01] MEDS ORDERED: ondansetron/PF 4mg/2ml inj IV PRN (08:15)
[2017-12-01] MEDS ORDERED: labetalol 20mg/4ml (5mg/ml) syringe IV PRN (08:15)
[2017-12-01] MEDS ORDERED: hydrALAZINE 20mg/ml inj. IV PRN (08:15)
[2017-12-01] MEDS: levoFLOXACIN-Levaquin 500mg/D5 100 ML IV SCH (09:09)
[2017-12-01] MEDS: morphine 4 MG/ML inj SYRINge IV PRN ×3 (09:30→21:32)
[2017-12-01] MEDS: gabapentin 300mg capsule PO SCH ×2 (10:06→16:38)
[2017-12-01] MEDS: HYDROcodone/acetaminophen 10/325mg tab PO PRN ×2 (10:10→17:58)
[2017-12-01] MEDS ORDERED: morphine 2 MG/ML inj. syringe IV PRN (12:30)
[2017-12-01] MEDS ORDERED: lactobacillus rhamnosus 10,000 MMU CELLS/CAPSULE PO SCH (20:00)
[2017-12-01] MEDS: baclofen 10mg tablet PO PRN (21:08)
[2017-12-02] VITALS (7 sets, daily range): BP systolic 72–139; BP diastolic 41–69
[2017-12-02] MEDS: gabapentin 300mg capsule PO SCH ×4 (01:17→23:57)
[2017-12-02] MEDS: vancomycin inj 1,250 MG in normal saline 250ml IV soln 250 ML IV SCH (01:17)
[2017-12-02] MEDS: morphine 4 MG/ML inj SYRINge IV PRN (03:11)
[2017-12-02 06:46] LABS: ALBUMIN 1.8 G/DL (3.4-5.0); ANION GAP 8 (8-16); BLOOD UREA NITROGEN 10 MG/DL (7-18); BUN/CREATININE RATIO 13.5 (5.4-32.0); CALCIUM 8.6 MG/DL (8.5-10.1); CHLORIDE 98 MMOL/L (99-107); CREATININE 0.74 MG/DL (0.60-1.10); GLUCOSE 137 MG/DL (70-104); POTASSIUM 4.4 MMOL/L (3.5-5.1); SODIUM 132 MMOL/L (135-145); TOTAL CARBON DIOXIDE 26.3 MMOL/L (24-32); eGFR > 90 ML/MIN
[2017-12-02] MEDS: K and/or MAG REPLACEMENT MC SCH (07:36)
[2017-12-02] MEDS: carvedilol 6.25mg tablet PO SCH ×2 (07:50→19:50)
[2017-12-02] MEDS: multivitamins, therapeutics tablet PO SCH (07:51)
[2017-12-02] MEDS: atorvastatin 10mg tablet PO SCH (07:51)
[2017-12-02] MEDS: ascorbic acid 500mg tablet PO SCH (07:51)
[2017-12-02] MEDS: lactobacillus rhamnosus 10,000 MMU CELLS/CAPSULE PO SCH ×2 (07:51→19:50)
[2017-12-02] MEDS: magnesium hydroxide 30ml (MOM) UD suspension PO PRN (16:10)
[2017-12-02] MEDS: HYDROcodone/acetaminophen 10/325mg tab PO PRN (16:42)
[2017-12-02] MEDS: insulin Lispro (HumaLOG) vial - multi-dose SQ SCH (21:17)
[2017-12-02] MEDS: insulin glargine (Lantus) pen - multi-dose SQ SCH (21:33)
[2017-12-03 05:00] VITALS: BP 121/48
[2017-12-03] MEDS: carvedilol 6.25mg tablet PO SCH ×2 (08:00→19:15)
[2017-12-03] MEDS: K and/or MAG REPLACEMENT MC SCH (08:00)
[2017-12-03 08:37] VITALS: BP 96/47
[2017-12-03] MEDS: lactobacillus rhamnosus 10,000 MMU CELLS/CAPSULE PO SCH ×2 (08:39→19:15)
[2017-12-03] MEDS: atorvastatin 10mg tablet PO SCH (08:40)
[2017-12-03] MEDS: ascorbic acid 500mg tablet PO SCH (08:40)
[2017-12-03] MEDS: gabapentin 300mg capsule PO SCH ×2 (08:40→16:42)
[2017-12-03] MEDS: multivitamins, therapeutics tablet PO SCH (08:40)
[2017-12-03] MEDS: insulin Lispro (HumaLOG) vial - multi-dose SQ SCH ×3 (08:55→19:09)
[2017-12-03] MEDS: HYDROcodone/acetaminophen 10/325mg tab PO PRN ×2 (08:59→19:15)
[2017-12-03] MEDS ORDERED: magnesium hydroxide 30ml (MOM) UD suspension PO ONE (11:35)
[2017-12-03 11:46] VITALS: BP 128/55
[2017-12-03] MEDS ORDERED: bisacodyl 10mg suppository rectal RC STA (17:03)
[2017-12-03 18:00] VITALS: BP 126/53
[2017-12-03] MEDS: insulin glargine (Lantus) pen - multi-dose SQ SCH (21:42)
[2017-12-03 22:13] VITALS: BP 142/68
[2017-12-04] MEDS: gabapentin 300mg capsule PO SCH ×4 (00:03→16:45)
[2017-12-04] MEDS: HYDROcodone/acetaminophen 10/325mg tab PO PRN ×2 (04:56→20:07)
[2017-12-04 06:00] VITALS: BP 146/61
[2017-12-04] MEDS: K and/or MAG REPLACEMENT MC SCH (07:42)
[2017-12-04] MEDS: carvedilol 6.25mg tablet PO SCH ×2 (07:50→20:06)
[2017-12-04] MEDS: lactobacillus rhamnosus 10,000 MMU CELLS/CAPSULE PO SCH ×2 (07:51→20:06)
[2017-12-04] MEDS: atorvastatin 10mg tablet PO SCH (07:53)
[2017-12-04] MEDS: multivitamins, therapeutics tablet PO SCH (07:53)
[2017-12-04] MEDS: ascorbic acid 500mg tablet PO SCH (08:08)
[2017-12-04] MEDS: insulin Lispro (HumaLOG) vial - multi-dose SQ SCH ×2 (09:08→14:13)
[2017-12-04] MEDS: NUT.TX.GLUC.INTOLER,LAC-FR,SOY (GLUCERNA) 237 ML PO SCH ×2 (13:00→18:00)
[2017-12-04 17:01] VITALS: BP 135/54
[2017-12-04 18:00] VITALS: BP 135/54
[2017-12-04] MEDS: insulin glargine (Lantus) pen - multi-dose SQ SCH (20:56)
[2017-12-04 22:00] VITALS: BP 112/50
[2017-12-04] MEDS: acetaminophen 325mg tablet PO PRN (23:02)
[2017-12-05] MEDS: gabapentin 300mg capsule PO SCH ×4 (00:12→23:56)
[2017-12-05 06:00] VITALS: BP 133/54
[2017-12-05] MEDS: K and/or MAG REPLACEMENT MC SCH (08:00)
[2017-12-05] MEDS: NUT.TX.GLUC.INTOLER,LAC-FR,SOY (GLUCERNA) 237 ML PO SCH ×3 (08:00→18:00)
[2017-12-05] MEDS: carvedilol 6.25mg tablet PO SCH ×2 (08:07→20:25)
[2017-12-05] MEDS: multivitamins, therapeutics tablet PO SCH (08:08)
[2017-12-05] MEDS: atorvastatin 10mg tablet PO SCH (08:08)
[2017-12-05] MEDS: lactobacillus rhamnosus 10,000 MMU CELLS/CAPSULE PO SCH ×2 (08:08→20:25)
[2017-12-05] MEDS: ascorbic acid 500mg tablet PO SCH (08:08)
[2017-12-05 08:27] VITALS: BP 107/54
[2017-12-05] MEDS: insulin Lispro (HumaLOG) vial - multi-dose SQ SCH ×3 (09:23→19:13)
[2017-12-05 10:00] VITALS: BP 110/46
[2017-12-05 12:17] LABS: BASOPHILS % (AUTO) 0.3 % (0-1); EOSINOPHILS # (AUTO) 0.1 X10'3 (0-0.9); EOSINOPHILS % (AUTO) 0.7 % (0-6); HEMATOCRIT 28.2 % (42.0-52.0); HEMOGLOBIN 9.3 g/dl (14.0-17.9); LYMPHOCYTES # (AUTO) 0.4 X10'3 (1.1-4.8); LYMPHOCYTES % (AUTO) 3.7 % (21-51); MEAN CORPUSCULAR HEMOGLOBIN 27.8 PG (27.0-31.0); MEAN CORPUSCULAR HGB CONC 33.1 % (33.0-36.5); MONOCYTES # (AUTO) 0.8 X10'3 (0-0.9); MONOCYTES % (AUTO) 6.7 % (2-12); NEUTROPHILS # (AUTO) 10.7 X10'3 (1.8-7.7); NEUTROPHILS % (AUTO) 88.6 % (42-75); PLATELET COUNT 185 X10'3 (140-440); RED BLOOD COUNT 3.35 X10'6 (4.70-6.10); RED CELL DISTRIBUTION WIDTH 14.5 % (11.5-14.5)
[2017-12-05 12:32] LABS: ALANINE AMINOTRANSFERASE 35 U/L (12-78); ALBUMIN 1.8 G/DL (3.4-5.0); ALBUMIN/GLOBULIN RATIO 0.4 (1.1-1.5); ALKALINE PHOSPHATASE 136 IU/L (46-116); ANION GAP 8 (8-16); ASPARTATE AMINO TRANSFERASE 30 U/L (10-37); BILIRUBIN,TOTAL 0.5 MG/DL (0.1-1.0); BLOOD UREA NITROGEN 15 MG/DL (7-18); BUN/CREATININE RATIO 16.1 (5.4-32.0); CHLORIDE 97 MMOL/L (99-107); CREATININE 0.93 MG/DL (0.60-1.10); GLUCOSE 162 MG/DL (70-104); POTASSIUM 4.2 MMOL/L (3.5-5.1); SODIUM 134 MMOL/L (135-145); TOTAL CARBON DIOXIDE 29.2 MMOL/L (24-32); TOTAL PROTEIN 6.4 G/DL (6.4-8.2); eGFR 79 ML/MIN
[2017-12-05 17:00] VITALS: BP 119/53
[2017-12-05] MEDS: insulin glargine (Lantus) pen - multi-dose SQ SCH (21:32)
[2017-12-05 22:00] VITALS: BP 137/51
[2017-12-05] MEDS: acetaminophen 325mg tablet PO PRN (22:45)
[2017-12-06 06:00] VITALS: BP 121/76
[2017-12-06] MEDS: K and/or MAG REPLACEMENT MC SCH (06:38)
[2017-12-06] MEDS ORDERED: BARIUM SULFATE 340 ML SUSP.RECON***PROCEDURE AREA ONLY**DONT ENTER PO ONE (07:41)
[2017-12-06] MEDS: ascorbic acid 500mg tablet PO SCH (08:00)
[2017-12-06] MEDS: atorvastatin 10mg tablet PO SCH (08:00)
[2017-12-06] MEDS: carvedilol 6.25mg tablet PO SCH ×2 (08:00→20:00)
[2017-12-06] MEDS: multivitamins, therapeutics tablet PO SCH (08:00)
[2017-12-06] MEDS: lactobacillus rhamnosus 10,000 MMU CELLS/CAPSULE PO SCH ×2 (08:00→20:00)
[2017-12-06] MEDS: gabapentin 300mg capsule PO SCH ×2 (08:00→14:14)
[2017-12-06] MEDS: NUT.TX.GLUC.INTOLER,LAC-FR,SOY (GLUCERNA) 237 ML PO SCH ×3 (08:00→15:35)
[2017-12-06] MEDS: insulin Lispro (HumaLOG) vial - multi-dose SQ SCH ×2 (09:50→13:46)
[2017-12-06 10:34] VITALS: BP 119/48
[2017-12-06] MEDS: HYDROcodone/acetaminophen 10/325mg tab PO PRN (12:30)
[2017-12-06 18:00] VITALS: BP 120/56
[2017-12-06] MEDS: linezolid 600mg tablet PO SCH (20:00)
[2017-12-06] MEDS: insulin glargine (Lantus) pen - multi-dose SQ SCH (21:00)
[2017-12-06] MEDS: dextrose 5%-1/2 normal saline 1,000 ML IV SCH (21:05)
[2017-12-06] MEDS: dextrose 50%-water 50ml dispensing syringe IV PRN (21:06)
[2017-12-06 22:00] VITALS: BP 153/74
[2017-12-06] MEDS ORDERED: morphine 2 MG/ML inj. syringe IV ONE (22:10)
[2017-12-07] VITALS (8 sets, daily range): BP systolic 138–162; BP diastolic 62–85
[2017-12-07] MEDS: meropenem inj 1 GM in normal saline 100ml IV soln 100 ML IV SCH ×3 (00:45→16:39)
[2017-12-07] MEDS: linezolid 600mg tablet PO SCH ×2 (08:00→21:24)
[2017-12-07] MEDS: gabapentin 300mg capsule PO SCH ×3 (08:00→16:00)
[2017-12-07] MEDS: NUT.TX.GLUC.INTOLER,LAC-FR,SOY (GLUCERNA) 237 ML PO SCH ×3 (08:00→18:00)
[2017-12-07] MEDS: carvedilol 6.25mg tablet PO SCH ×2 (08:00→21:24)
[2017-12-07] MEDS: K and/or MAG REPLACEMENT MC SCH (08:00)
[2017-12-07] MEDS: lactobacillus rhamnosus 10,000 MMU CELLS/CAPSULE PO SCH ×2 (08:00→21:24)
[2017-12-07] MEDS: atorvastatin 10mg tablet PO SCH (08:00)
[2017-12-07] MEDS: multivitamins, therapeutics tablet PO SCH (08:00)
[2017-12-07] MEDS: ascorbic acid 500mg tablet PO SCH (08:00)
[2017-12-07 09:03] LABS: ALBUMIN 1.9 G/DL (3.4-5.0); ANION GAP 7 (8-16); BLOOD UREA NITROGEN 15 MG/DL (7-18); BUN/CREATININE RATIO 19.5 (5.4-32.0); CALCIUM 9.2 MG/DL (8.5-10.1); CHLORIDE 101 MMOL/L (99-107); CREATININE 0.77 MG/DL (0.60-1.10); GLUCOSE 131 MG/DL (70-104); SODIUM 134 MMOL/L (135-145); TOTAL CARBON DIOXIDE 26.3 MMOL/L (24-32); eGFR > 90 ML/MIN
[2017-12-07 09:36] LABS: BASOPHILS % (AUTO) 0 % (0-1); EOSINOPHILS # (AUTO) 0.2 X10'3 (0-0.9); EOSINOPHILS % (AUTO) 1.3 % (0-6); HEMATOCRIT 28.7 % (42.0-52.0); HEMOGLOBIN 9.7 g/dl (14.0-17.9); LYMPHOCYTES # (AUTO) 0.4 X10'3 (1.1-4.8); MEAN CORPUSCULAR HEMOGLOBIN 27.7 PG (27.0-31.0); MEAN CORPUSCULAR HGB CONC 33.6 % (33.0-36.5); MEAN CORPUSCULAR VOLUME 82.5 FL (78-98); MEAN PLATELET VOLUME 8.3 FL (7.4-10.4); MONOCYTES # (AUTO) 1.2 X10'3 (0-0.9); MONOCYTES % (AUTO) 9.7 % (2-12); NEUTROPHILS # (AUTO) 11.1 X10'3 (1.8-7.7); PLATELET COUNT 234 X10'3 (140-440); RED BLOOD COUNT 3.48 X10'6 (4.70-6.10); RED CELL DISTRIBUTION WIDTH 15.9 % (11.5-14.5); WHITE BLOOD COUNT 12.9 X10'3 (4.5-11.0)
[2017-12-07] MEDS ORDERED: MIDAZolam 5mg/5ml vial ONE (11:40)
[2017-12-07] MEDS ORDERED: fentaNYL/PF 50MCG/1 ML 2ML syringe ONE (11:40)
[2017-12-07] MEDS ORDERED: LIDOcaine Viscous 15ml cup ONE (11:41)
[2017-12-07] MEDS: dextrose 5%-1/2 normal saline 1,000 ML IV SCH (12:53)
[2017-12-07] MEDS: fluconazole-Diflucan 100MG/NS 50 ML IV SCH (13:42)
[2017-12-07] MEDS: insulin glargine (Lantus) pen - multi-dose SQ SCH (21:00)
[2017-12-07] MEDS: dronabinol 2.5mg capsule PO SCH (21:24)
[2017-12-08] VITALS: BP 153/66
[2017-12-08] MEDS: dextrose 5%-1/2 normal saline 1,000 ML IV SCH (00:49)
[2017-12-08] MEDS: gabapentin 300mg capsule PO SCH ×4 (00:49→23:37)
[2017-12-08] MEDS: meropenem inj 1 GM in normal saline 100ml IV soln 100 ML IV SCH ×4 (00:49→23:37)
[2017-12-08 06:00] VITALS: BP 162/74
[2017-12-08] MEDS: NUT.TX.GLUC.INTOLER,LAC-FR,SOY (GLUCERNA) 237 ML PO SCH ×3 (08:00→18:00)
[2017-12-08] MEDS: K and/or MAG REPLACEMENT MC SCH (08:45)
[2017-12-08 09:09] LABS: BASOPHILS % (AUTO) 0.5 % (0-1); EOSINOPHILS # (AUTO) 0.1 X10'3 (0-0.9); EOSINOPHILS % (AUTO) 1.3 % (0-6); HEMATOCRIT 27.6 % (42.0-52.0); HEMOGLOBIN 9.3 g/dl (14.0-17.9); LYMPHOCYTES # (AUTO) 0.4 X10'3 (1.1-4.8); LYMPHOCYTES % (AUTO) 4.6 % (21-51); MEAN CORPUSCULAR HEMOGLOBIN 27.8 PG (27.0-31.0); MEAN CORPUSCULAR HGB CONC 33.6 % (33.0-36.5); MEAN CORPUSCULAR VOLUME 82.9 FL (78-98); MEAN PLATELET VOLUME 8.5 FL (7.4-10.4); MONOCYTES # (AUTO) 0.7 X10'3 (0-0.9); MONOCYTES % (AUTO) 8.7 % (2-12); NEUTROPHILS # (AUTO) 7.3 X10'3 (1.8-7.7); NEUTROPHILS % (AUTO) 84.9 % (42-75); PLATELET COUNT 240 X10'3 (140-440); RED BLOOD COUNT 3.33 X10'6 (4.70-6.10); RED CELL DISTRIBUTION WIDTH 15.9 % (11.5-14.5); WHITE BLOOD COUNT 8.6 X10'3 (4.5-11.0)
[2017-12-08] MEDS: insulin Lispro (HumaLOG) vial - multi-dose SQ SCH ×3 (09:31→19:55)
[2017-12-08] MEDS: pantoprazole 40mg Tablet.DR PO SCH (09:35)
[2017-12-08] MEDS: lactobacillus rhamnosus 10,000 MMU CELLS/CAPSULE PO SCH ×2 (09:36→19:56)
[2017-12-08] MEDS: atorvastatin 10mg tablet PO SCH (09:36)
[2017-12-08] MEDS: carvedilol 6.25mg tablet PO SCH ×2 (09:36→19:56)
[2017-12-08 09:37] LABS: ALANINE AMINOTRANSFERASE 88 U/L (12-78); ALBUMIN 1.7 G/DL (3.4-5.0); ALBUMIN/GLOBULIN RATIO 0.4 (1.1-1.5); ALKALINE PHOSPHATASE 151 IU/L (46-116); ANION GAP 5 (8-16); ASPARTATE AMINO TRANSFERASE 93 U/L (10-37); BILIRUBIN,TOTAL 0.5 MG/DL (0.1-1.0); BLOOD UREA NITROGEN 12 MG/DL (7-18); BUN/CREATININE RATIO 18.5 (5.4-32.0); CALCIUM 8.7 MG/DL (8.5-10.1); CHLORIDE 100 MMOL/L (99-107); CREATININE 0.65 MG/DL (0.60-1.10); GLUCOSE 227 MG/DL (70-104); POTASSIUM 4.1 MMOL/L (3.5-5.1); SODIUM 132 MMOL/L (135-145); TOTAL CARBON DIOXIDE 26.7 MMOL/L (24-32); TOTAL PROTEIN 6.2 G/DL (6.4-8.2); eGFR > 90 ML/MIN
[2017-12-08] MEDS: multivitamins, therapeutics tablet PO SCH (09:37)
[2017-12-08] MEDS: ascorbic acid 500mg tablet PO SCH (09:37)
[2017-12-08] MEDS: linezolid 600mg tablet PO SCH ×2 (09:37→19:56)
[2017-12-08] MEDS: HYDROcodone/acetaminophen 10/325mg tab PO PRN ×2 (09:37→16:51)
[2017-12-08 10:00] VITALS: BP 111/57
[2017-12-08] MEDS: fluconazole-Diflucan 100MG/NS 50 ML IV SCH (10:00)
[2017-12-08] MEDS: dronabinol 2.5mg capsule PO SCH ×2 (12:28→16:02)
[2017-12-08 18:00] VITALS: BP 121/51
[2017-12-08] MEDS: neomy sulf/polymyx B sulf/HC otic soln 10ml RIGHT EAR SCH (19:58)
[2017-12-08] MEDS ORDERED: lactobacillus rhamnosus 10,000 MMU CELLS/CAPSULE PO SCH (20:00)
[2017-12-08] MEDS: insulin glargine (Lantus) pen - multi-dose SQ SCH (21:37)
[2017-12-08 22:00] VITALS: BP 114/53
[2017-12-09] VITALS (8 sets, daily range): BP systolic 78–154; BP diastolic 43–98
[2017-12-09] MEDS: NUT.TX.GLUC.INTOLER,LAC-FR,SOY (GLUCERNA) 237 ML PO SCH ×3 (08:00→18:00)
[2017-12-09] MEDS: K and/or MAG REPLACEMENT MC SCH (08:00)
[2017-12-09] MEDS: meropenem inj 1 GM in normal saline 100ml IV soln 100 ML IV SCH ×2 (09:15→16:53)
[2017-12-09] MEDS: linezolid 600mg tablet PO SCH ×2 (09:15→19:11)
[2017-12-09] MEDS: lactobacillus rhamnosus 10,000 MMU CELLS/CAPSULE PO SCH ×2 (09:16→19:11)
[2017-12-09] MEDS: carvedilol 6.25mg tablet PO SCH ×2 (09:16→19:11)
[2017-12-09] MEDS: gabapentin 300mg capsule PO SCH ×2 (09:16→16:53)
[2017-12-09] MEDS: ascorbic acid 500mg tablet PO SCH (09:16)
[2017-12-09] MEDS: pantoprazole 40mg Tablet.DR PO SCH (09:16)
[2017-12-09] MEDS: multivitamins, therapeutics tablet PO SCH (09:16)
[2017-12-09] MEDS: atorvastatin 10mg tablet PO SCH (09:16)
[2017-12-09] MEDS: neomy sulf/polymyx B sulf/HC otic soln 10ml RIGHT EAR SCH ×4 (09:17→20:52)
[2017-12-09] MEDS: HYDROcodone/acetaminophen 10/325mg tab PO PRN (09:27)
[2017-12-09] MEDS: fluconazole-Diflucan 100MG/NS 50 ML IV SCH (10:00)
[2017-12-09 12:15] LABS: HIV ANTIBODY 1&2 RAPID NON-REACTIVE (Neg)
[2017-12-09] MEDS: dronabinol 2.5mg capsule PO SCH ×2 (12:34→16:53)
[2017-12-09] MEDS: insulin Lispro (HumaLOG) vial - multi-dose SQ SCH ×2 (14:36→19:10)
[2017-12-09] MEDS: insulin glargine (Lantus) pen - multi-dose SQ SCH (20:52)
[2017-12-09] MEDS: ipratropium/albuterol 3ml nebule NEB PRN (21:49)
[2017-12-09] MEDS: acetaminophen 325mg tablet PO PRN (22:12)
[2017-12-09 23:35] LABS: ABG BASE EXCESS 2.3 mmol/L (-2.0-3.0); ABG OXYGEN SATURATION 92.6 % (95-98); ABG PCO2 (T) 39.2 mmHg (35.0-48.0); ABG PH (T) 7.445 (7.350-7.450); ABG PO2 (T) 66.3 mmHg (83-108); FCOHb 0.3 % (0.5-1.5); FLOW 2 L/min; FMetHb 0.1 % (0.3-1.12); FO2Hb 92.2 % (94-100); PATIENT TEMPERATURE 38.3; TOTAL HEMOGLOBIN 9.8 G/dl (14.0-18.0)
[2017-12-09 23:46] LABS: BASOPHILS % (AUTO) 0.1 % (0-1); EOSINOPHILS # (AUTO) 0.1 X10'3 (0-0.9); EOSINOPHILS % (AUTO) 0.3 % (0-6); HEMATOCRIT 27.5 % (42.0-52.0); HEMOGLOBIN 9.1 g/dl (14.0-17.9); LYMPHOCYTES # (AUTO) 0.5 X10'3 (1.1-4.8); LYMPHOCYTES % (AUTO) 3.2 % (21-51); MEAN CORPUSCULAR HEMOGLOBIN 27.5 PG (27.0-31.0); MEAN CORPUSCULAR HGB CONC 33.3 % (33.0-36.5); MEAN CORPUSCULAR VOLUME 82.7 FL (78-98); MEAN PLATELET VOLUME 7.4 FL (7.4-10.4); MONOCYTES % (AUTO) 5.8 % (2-12); NEUTROPHILS # (AUTO) 15.2 X10'3 (1.8-7.7); NEUTROPHILS % (AUTO) 90.6 % (42-75); PLATELET COUNT 294 X10'3 (140-440); RED BLOOD COUNT 3.32 X10'6 (4.70-6.10); RED CELL DISTRIBUTION WIDTH 15.7 % (11.5-14.5); WHITE BLOOD COUNT 16.8 X10'3 (4.5-11.0)
[2017-12-09] MEDS ORDERED: normal saline 1000ml 1,000 ML IVB ONE (23:47)
[2017-12-09 23:58] LABS: ALBUMIN 1.7 G/DL (3.4-5.0); ANION GAP 3 (8-16); BLOOD UREA NITROGEN 14 MG/DL (7-18); BUN/CREATININE RATIO 18.7 (5.4-32.0); CALCIUM 8.8 MG/DL (8.5-10.1); CHLORIDE 100 MMOL/L (99-107); CREATININE 0.75 MG/DL (0.60-1.10); GLUCOSE 83 MG/DL (70-104); POTASSIUM 4.6 MMOL/L (3.5-5.1); SODIUM 133 MMOL/L (135-145); TOTAL CARBON DIOXIDE 30.3 MMOL/L (24-32); eGFR > 90 ML/MIN
[2017-12-10] VITALS (9 sets, daily range): BP systolic 102–147; BP diastolic 47–69
[2017-12-10] MEDS: meropenem inj 1 GM in normal saline 100ml IV soln 100 ML IV SCH ×4 (00:08→23:47)
[2017-12-10 02:29] LABS: TROPONIN I 0.08 NG/ML (0.0-0.05)
[2017-12-10] MEDS: ipratropium/albuterol 3ml nebule NEB SCH ×4 (03:46→20:38)
[2017-12-10] MEDS: K and/or MAG REPLACEMENT MC SCH (08:00)
[2017-12-10] MEDS ORDERED: albumin (Human) 5% 250ml BOTTLE IV ONE (08:00)
[2017-12-10] MEDS: linezolid 600mg tablet PO SCH ×2 (08:48→20:17)
[2017-12-10] MEDS: multivitamins, therapeutics tablet PO SCH (08:48)
[2017-12-10] MEDS: fluconazole 100mg tablet PO SCH (08:48)
[2017-12-10] MEDS: gabapentin 300mg capsule PO SCH ×4 (08:48→23:47)
[2017-12-10] MEDS: NUT.TX.GLUC.INTOLER,LAC-FR,SOY (GLUCERNA) 237 ML PO SCH ×3 (08:48→18:00)
[2017-12-10] MEDS: atorvastatin 10mg tablet PO SCH (08:48)
[2017-12-10] MEDS: pantoprazole 40mg Tablet.DR PO SCH (08:48)
[2017-12-10] MEDS: lactobacillus rhamnosus 10,000 MMU CELLS/CAPSULE PO SCH ×2 (08:48→20:17)
[2017-12-10] MEDS: ascorbic acid 500mg tablet PO SCH (08:48)
[2017-12-10] MEDS: neomy sulf/polymyx B sulf/HC otic soln 10ml RIGHT EAR SCH ×4 (08:49→20:18)
[2017-12-10] MEDS: dronabinol 2.5mg capsule PO SCH ×2 (12:21→16:28)
[2017-12-10] MEDS: insulin Lispro (HumaLOG) vial - multi-dose SQ SCH ×2 (14:17→20:17)
[2017-12-10] MEDS: insulin glargine (Lantus) pen - multi-dose SQ SCH (21:00)
[2017-12-11 00:43] LABS: CLARITY,URINE CLEAR (Clear); COLOR,URINE YELLOW (Yellow); GLUCOSE, URINE NEGATIVE (Neg); KETONES,URINE NEGATIVE (Neg); LEUKOCYTE ESTERASE ,URINE NEGATIVE (Neg); NITRITES, URINE NEGATIVE (Neg); OCCULT BLOOD,URINE NEGATIVE (Neg); PROTEIN,URINE NEGATIVE (Neg)
[2017-12-11 00:46] LABS: UA COLLECTION TYPE STRAIGHT CATH
[2017-12-11] MEDS: ipratropium/albuterol 3ml nebule NEB SCH ×4 (02:53→20:00)
[2017-12-11 06:00] VITALS: BP 138/82
[2017-12-11 07:00] VITALS: BP 148/65
[2017-12-11] MEDS: K and/or MAG REPLACEMENT MC SCH (08:00)
[2017-12-11] MEDS: NUT.TX.GLUC.INTOLER,LAC-FR,SOY (GLUCERNA) 237 ML PO SCH ×3 (08:00→18:00)
[2017-12-11] MEDS: meropenem inj 1 GM in normal saline 100ml IV soln 100 ML IV SCH ×2 (08:43→17:46)
[2017-12-11] MEDS: neomy sulf/polymyx B sulf/HC otic soln 10ml RIGHT EAR SCH ×4 (08:44→21:36)
[2017-12-11 10:00] VITALS: BP 150/71
[2017-12-11] MEDS: pantoprazole 40mg Tablet.DR PO SCH (11:02)
[2017-12-11] MEDS: lactobacillus rhamnosus 10,000 MMU CELLS/CAPSULE PO SCH ×2 (11:03→21:36)
[2017-12-11] MEDS: multivitamins, therapeutics tablet PO SCH (11:03)
[2017-12-11] MEDS: ascorbic acid 500mg tablet PO SCH (11:03)
[2017-12-11] MEDS: atorvastatin 10mg tablet PO SCH (11:03)
[2017-12-11] MEDS: gabapentin 300mg capsule PO SCH ×2 (11:03→17:47)
[2017-12-11] MEDS: fluconazole 100mg tablet PO SCH (11:03)
[2017-12-11] MEDS: benzocaine/menthol oral lozeng 1 EACH BOX MM PRN (11:04)
[2017-12-11] MEDS: linezolid 600mg tablet PO SCH ×2 (11:04→21:35)
[2017-12-11] MEDS: dronabinol 2.5mg capsule PO SCH ×2 (11:04→17:47)
[2017-12-11] MEDS: insulin Lispro (HumaLOG) vial - multi-dose SQ SCH ×2 (13:59→19:36)
[2017-12-11 18:00] VITALS: BP 151/74
[2017-12-11] MEDS ORDERED: gadopentetate dimeglumine 7.5 MMOL/15 ML syringe ONE (19:19)
[2017-12-11] MEDS: insulin glargine (Lantus) pen - multi-dose SQ SCH (21:47)
[2017-12-11 22:00] VITALS: BP 130/77
[2017-12-12] MEDS: gabapentin 300mg capsule PO SCH ×3 (01:10→16:56)
[2017-12-12] MEDS: meropenem inj 1 GM in normal saline 100ml IV soln 100 ML IV SCH ×3 (01:11→16:56)
[2017-12-12] MEDS: ipratropium/albuterol 3ml nebule NEB SCH (02:00)
[2017-12-12] MEDS ORDERED: ipratropium/albuterol 3ml nebule NEB PRN (03:10)
[2017-12-12 05:00] VITALS: BP 135/71
[2017-12-12] MEDS: pantoprazole 40mg Tablet.DR PO SCH (07:14)
[2017-12-12] MEDS: atorvastatin 10mg tablet PO SCH (07:15)
[2017-12-12] MEDS: multivitamins, therapeutics tablet PO SCH (07:16)
[2017-12-12] MEDS: lactobacillus rhamnosus 10,000 MMU CELLS/CAPSULE PO SCH ×2 (07:17→19:05)
[2017-12-12] MEDS: ascorbic acid 500mg tablet PO SCH (07:18)
[2017-12-12] MEDS: linezolid 600mg tablet PO SCH ×2 (07:19→19:05)
[2017-12-12] MEDS: fluconazole 100mg tablet PO SCH (07:20)
[2017-12-12] MEDS: neomy sulf/polymyx B sulf/HC otic soln 10ml RIGHT EAR SCH ×4 (07:20→22:23)
[2017-12-12] MEDS: K and/or MAG REPLACEMENT MC SCH (07:24)
[2017-12-12] MEDS: NUT.TX.GLUC.INTOLER,LAC-FR,SOY (GLUCERNA) 237 ML PO SCH ×3 (08:00→18:58)
[2017-12-12] MEDS: HYDROcodone/acetaminophen 10/325mg tab PO PRN ×2 (09:14→19:05)
[2017-12-12 10:00] VITALS: BP 139/54
[2017-12-12] MEDS: insulin Lispro (HumaLOG) vial - multi-dose SQ SCH ×2 (10:35→14:06)
[2017-12-12] MEDS: dronabinol 2.5mg capsule PO SCH ×2 (11:34→16:56)
[2017-12-12 14:17] LABS: BASOPHILS % (AUTO) 0.3 % (0-1); EOSINOPHILS # (AUTO) 0.1 X10'3 (0-0.9); EOSINOPHILS % (AUTO) 1.5 % (0-6); HEMATOCRIT 28.8 % (42.0-52.0); HEMOGLOBIN 9.4 g/dl (14.0-17.9); LYMPHOCYTES # (AUTO) 0.4 X10'3 (1.1-4.8); LYMPHOCYTES % (AUTO) 4.3 % (21-51); MEAN CORPUSCULAR HEMOGLOBIN 27.2 PG (27.0-31.0); MEAN CORPUSCULAR HGB CONC 32.8 % (33.0-36.5); MEAN CORPUSCULAR VOLUME 82.7 FL (78-98); MEAN PLATELET VOLUME 7.9 FL (7.4-10.4); MONOCYTES # (AUTO) 0.5 X10'3 (0-0.9); MONOCYTES % (AUTO) 6.2 % (2-12); NEUTROPHILS # (AUTO) 7.3 X10'3 (1.8-7.7); NEUTROPHILS % (AUTO) 87.7 % (42-75); PLATELET COUNT 318 X10'3 (140-440); RED BLOOD COUNT 3.48 X10'6 (4.70-6.10); RED CELL DISTRIBUTION WIDTH 15.7 % (11.5-14.5); WHITE BLOOD COUNT 8.3 X10'3 (4.5-11.0)
[2017-12-12 18:00] VITALS: BP 127/65
[2017-12-12 22:00] VITALS: BP 139/64
[2017-12-12] MEDS: insulin glargine (Lantus) pen - multi-dose SQ SCH (22:22)
[2017-12-13] MEDS: meropenem inj 1 GM in normal saline 100ml IV soln 100 ML IV SCH ×4 (01:05→23:55)
[2017-12-13 05:00] VITALS: BP 164/81
[2017-12-13] MEDS: NUT.TX.GLUC.INTOLER,LAC-FR,SOY (GLUCERNA) 237 ML PO SCH ×3 (08:00→18:00)
[2017-12-13] MEDS: K and/or MAG REPLACEMENT MC SCH (08:00)
[2017-12-13] MEDS: pantoprazole 40mg Tablet.DR PO SCH (09:37)
[2017-12-13] MEDS: fluconazole 100mg tablet PO SCH (09:38)
[2017-12-13] MEDS: multivitamins, therapeutics tablet PO SCH (09:38)
[2017-12-13] MEDS: atorvastatin 10mg tablet PO SCH (09:38)
[2017-12-13] MEDS: gabapentin 300mg capsule PO SCH ×4 (09:38→23:55)
[2017-12-13] MEDS: lactobacillus rhamnosus 10,000 MMU CELLS/CAPSULE PO SCH ×2 (09:38→19:25)
[2017-12-13] MEDS: ascorbic acid 500mg tablet PO SCH (09:39)
[2017-12-13] MEDS: neomy sulf/polymyx B sulf/HC otic soln 10ml RIGHT EAR SCH ×4 (09:39→21:03)
[2017-12-13] MEDS: linezolid 600mg tablet PO SCH ×2 (09:39→19:25)
[2017-12-13 10:00] VITALS: BP 132/73
[2017-12-13] MEDS: magnesium hydroxide 30ml (MOM) UD suspension PO PRN (10:04)
[2017-12-13] MEDS: dronabinol 2.5mg capsule PO SCH ×2 (11:55→17:03)
[2017-12-13] MEDS: insulin Lispro (HumaLOG) vial - multi-dose SQ SCH ×2 (13:46→19:28)
[2017-12-13 18:00] VITALS: BP 129/57
[2017-12-13] MEDS: insulin glargine (Lantus) pen - multi-dose SQ SCH (21:05)
[2017-12-14] VITALS: BP 117/56
[2017-12-14 07:00] VITALS: BP 137/60
[2017-12-14] MEDS: lactobacillus rhamnosus 10,000 MMU CELLS/CAPSULE PO SCH ×2 (07:54→19:17)
[2017-12-14] MEDS: ascorbic acid 500mg tablet PO SCH (07:55)
[2017-12-14] MEDS: atorvastatin 10mg tablet PO SCH (07:55)
[2017-12-14] MEDS: multivitamins, therapeutics tablet PO SCH (07:55)
[2017-12-14] MEDS: pantoprazole 40mg Tablet.DR PO SCH (07:56)
[2017-12-14] MEDS: gabapentin 300mg capsule PO SCH ×2 (07:56→16:08)
[2017-12-14] MEDS: fluconazole 100mg tablet PO SCH (07:58)
[2017-12-14] MEDS: neomy sulf/polymyx B sulf/HC otic soln 10ml RIGHT EAR SCH ×4 (07:59→20:50)
[2017-12-14] MEDS: linezolid 600mg tablet PO SCH ×2 (07:59→19:17)
[2017-12-14] MEDS: K and/or MAG REPLACEMENT MC SCH (08:00)
[2017-12-14] MEDS: meropenem inj 1 GM in normal saline 100ml IV soln 100 ML IV SCH ×2 (08:00→16:08)
[2017-12-14] MEDS: NUT.TX.GLUC.INTOLER,LAC-FR,SOY (GLUCERNA) 237 ML PO SCH ×3 (08:00→17:43)
[2017-12-14] MEDS: HYDROcodone/acetaminophen 10/325mg tab PO PRN ×2 (08:06→14:22)
[2017-12-14 09:09] LABS: AFP,SERUM, TUMOR MARKER 1.3 ng/mL (0.0-8.3); CARCINOEMBRYONIC ANTIGEN 3.8 ng/mL (0.0-4.7)
[2017-12-14] MEDS: insulin Lispro (HumaLOG) vial - multi-dose SQ SCH ×3 (09:15→19:15)
[2017-12-14 11:00] VITALS: BP 108/53
[2017-12-14 11:16] LABS: HBSAG SCREEN Negative (Negative); HEP A AB, IGM Negative (Negative); HEP B CORE AB, IGM Negative (Negative); HEPATITIS C ANTIBODY <0.1 s/co ratio (0.0-0.9)
[2017-12-14] MEDS: dronabinol 2.5mg capsule PO SCH ×2 (11:27→16:08)
[2017-12-14] MEDS ORDERED: lactulose 20gm/30ml cup PO ONE (12:10)
[2017-12-14 18:00] VITALS: BP 115/60
[2017-12-14] MEDS: insulin glargine (Lantus) pen - multi-dose SQ SCH (20:57)
[2017-12-14] MEDS: acetaminophen 325mg tablet PO PRN (21:50)
[2017-12-14 22:00] VITALS: BP 111/56
[2017-12-15] MEDS: meropenem inj 1 GM in normal saline 100ml IV soln 100 ML IV SCH ×4 (00:09→23:55)
[2017-12-15] MEDS: gabapentin 300mg capsule PO SCH ×3 (00:10→16:15)
[2017-12-15] MEDS: dextrose 50%-water 50ml dispensing syringe IV PRN ×3 (00:13→21:56)
[2017-12-15] MEDS: dextrose 5%-water 1,000 ML IV SCH ×3 (01:59→21:20)
[2017-12-15 06:48] VITALS: BP 123/76
[2017-12-15 07:03] LABS: BASOPHILS % (AUTO) 0.1 % (0-1); EOSINOPHILS # (AUTO) 0.2 X10'3 (0-0.9); EOSINOPHILS % (AUTO) 1.3 % (0-6); HEMATOCRIT 27.4 % (42.0-52.0); HEMOGLOBIN 9.2 g/dl (14.0-17.9); LYMPHOCYTES # (AUTO) 0.6 X10'3 (1.1-4.8); MEAN CORPUSCULAR HEMOGLOBIN 27.8 PG (27.0-31.0); MEAN CORPUSCULAR HGB CONC 33.7 % (33.0-36.5); MEAN CORPUSCULAR VOLUME 82.4 FL (78-98); MEAN PLATELET VOLUME 7.1 FL (7.4-10.4); MONOCYTES # (AUTO) 0.9 X10'3 (0-0.9); MONOCYTES % (AUTO) 5.5 % (2-12); NEUTROPHILS # (AUTO) 14.2 X10'3 (1.8-7.7); NEUTROPHILS % (AUTO) 89.1 % (42-75); PLATELET COUNT 255 X10'3 (140-440); RED BLOOD COUNT 3.32 X10'6 (4.70-6.10); RED CELL DISTRIBUTION WIDTH 16.2 % (11.5-14.5); WHITE BLOOD COUNT 15.9 X10'3 (4.5-11.0)
[2017-12-15 07:16] LABS: ALBUMIN 1.7 G/DL (3.4-5.0); ANION GAP 2 (8-16); BLOOD UREA NITROGEN 19 MG/DL (7-18); BUN/CREATININE RATIO 23.2 (5.4-32.0); CALCIUM 8.6 MG/DL (8.5-10.1); CHLORIDE 98 MMOL/L (99-107); CREATININE 0.82 MG/DL (0.60-1.10); GLUCOSE 197 MG/DL (70-104); POTASSIUM 4.8 MMOL/L (3.5-5.1); SODIUM 131 MMOL/L (135-145); TOTAL CARBON DIOXIDE 31.5 MMOL/L (24-32); eGFR > 90 ML/MIN
[2017-12-15] MEDS: HYDROcodone/acetaminophen 10/325mg tab PO PRN ×3 (08:00→23:27)
[2017-12-15] MEDS: lactobacillus rhamnosus 10,000 MMU CELLS/CAPSULE PO SCH ×2 (08:00→20:59)
[2017-12-15] MEDS: pantoprazole 40mg Tablet.DR PO SCH (08:00)
[2017-12-15] MEDS: K and/or MAG REPLACEMENT MC SCH (08:00)
[2017-12-15] MEDS: multivitamins, therapeutics tablet PO SCH (08:00)
[2017-12-15] MEDS: linezolid 600mg tablet PO SCH ×2 (08:01→20:59)
[2017-12-15] MEDS: fluconazole 100mg tablet PO SCH (08:01)
[2017-12-15] MEDS: neomy sulf/polymyx B sulf/HC otic soln 10ml RIGHT EAR SCH ×4 (08:01→20:59)
[2017-12-15] MEDS: ascorbic acid 500mg tablet PO SCH (08:01)
[2017-12-15] MEDS: atorvastatin 10mg tablet PO SCH (08:01)
[2017-12-15] MEDS: NUT.TX.GLUC.INTOLER,LAC-FR,SOY (GLUCERNA) 237 ML PO SCH ×3 (08:02→17:53)
[2017-12-15] MEDS: benzocaine/menthol oral lozeng 1 EACH BOX MM PRN (08:02)
[2017-12-15] MEDS: insulin Lispro (HumaLOG) vial - multi-dose SQ SCH ×3 (08:59→18:57)
[2017-12-15 10:12] VITALS: BP 123/52
[2017-12-15] MEDS: dronabinol 2.5mg capsule PO SCH ×2 (11:46→16:15)
[2017-12-15 17:00] VITALS: BP 117/60
[2017-12-15] MEDS: magnesium hydroxide 30ml (MOM) UD suspension PO PRN (17:17)
[2017-12-15] MEDS: dextrose ORAL solution 15 GM/59 ML bottle PO PRN ×2 (20:54→21:14)
[2017-12-15 22:00] VITALS: BP 108/56
[2017-12-15] MEDS ORDERED: dextrose 5%-water 1,000 ML IV SCH (23:59)
[2017-12-16 05:45] LABS: BASOPHILS % (AUTO) 0.3 % (0-1); EOSINOPHILS # (AUTO) 0.3 X10'3 (0-0.9); EOSINOPHILS % (AUTO) 3.1 % (0-6); HEMATOCRIT 25.4 % (42.0-52.0); HEMOGLOBIN 8.4 g/dl (14.0-17.9); LYMPHOCYTES # (AUTO) 0.7 X10'3 (1.1-4.8); LYMPHOCYTES % (AUTO) 8.1 % (21-51); MEAN CORPUSCULAR HEMOGLOBIN 27.2 PG (27.0-31.0); MEAN CORPUSCULAR HGB CONC 33.2 % (33.0-36.5); MEAN CORPUSCULAR VOLUME 81.9 FL (78-98); MEAN PLATELET VOLUME 7.6 FL (7.4-10.4); MONOCYTES # (AUTO) 0.8 X10'3 (0-0.9); MONOCYTES % (AUTO) 9.2 % (2-12); NEUTROPHILS # (AUTO) 6.7 X10'3 (1.8-7.7); NEUTROPHILS % (AUTO) 79.3 % (42-75); PLATELET COUNT 222 X10'3 (140-440); RED CELL DISTRIBUTION WIDTH 16.7 % (11.5-14.5); WHITE BLOOD COUNT 8.5 X10'3 (4.5-11.0)
[2017-12-16 06:11] LABS: ALBUMIN 1.7 G/DL (3.4-5.0); ANION GAP 2 (8-16); BLOOD UREA NITROGEN 19 MG/DL (7-18); BUN/CREATININE RATIO 27.5 (5.4-32.0); CALCIUM 8.4 MG/DL (8.5-10.1); CHLORIDE 98 MMOL/L (99-107); CREATININE 0.69 MG/DL (0.60-1.10); GLUCOSE 162 MG/DL (70-104); POTASSIUM 4.9 MMOL/L (3.5-5.1); SODIUM 133 MMOL/L (135-145); TOTAL CARBON DIOXIDE 32.7 MMOL/L (24-32); eGFR > 90 ML/MIN
[2017-12-16] MEDS: pantoprazole 40mg Tablet.DR PO SCH (08:43)
[2017-12-16] MEDS: lactobacillus rhamnosus 10,000 MMU CELLS/CAPSULE PO SCH ×2 (08:43→21:58)
[2017-12-16] MEDS: gabapentin 300mg capsule PO SCH ×3 (08:44→16:40)
[2017-12-16] MEDS: fluconazole 100mg tablet PO SCH (08:44)
[2017-12-16] MEDS: ascorbic acid 500mg tablet PO SCH (08:44)
[2017-12-16] MEDS: atorvastatin 10mg tablet PO SCH (08:44)
[2017-12-16] MEDS: linezolid 600mg tablet PO SCH (08:44)
[2017-12-16] MEDS: multivitamins, therapeutics tablet PO SCH (08:44)
[2017-12-16] MEDS: neomy sulf/polymyx B sulf/HC otic soln 10ml RIGHT EAR SCH ×4 (08:45→21:59)
[2017-12-16] MEDS: insulin Lispro (HumaLOG) vial - multi-dose SQ SCH (08:46)
[2017-12-16] MEDS: NUT.TX.GLUC.INTOLER,LAC-FR,SOY (GLUCERNA) 237 ML PO SCH ×3 (08:47→18:00)
[2017-12-16] MEDS: HYDROcodone/acetaminophen 10/325mg tab PO PRN (08:55)
[2017-12-16] MEDS: meropenem inj 1 GM in normal saline 100ml IV soln 100 ML IV SCH (08:57)
[2017-12-16] MEDS: K and/or MAG REPLACEMENT MC SCH (09:21)
[2017-12-16 09:37] VITALS: BP_SYST 117; BP_SYST 137; BP_DIAS 60; BP_DIAS 73
[2017-12-16] MEDS: magnesium hydroxide 30ml (MOM) UD suspension PO PRN (10:07)
[2017-12-16 10:57] VITALS: BP 137/62
[2017-12-16] MEDS: dronabinol 2.5mg capsule PO SCH ×2 (11:46→16:40)
[2017-12-16 18:00] VITALS: BP 132/69
[2017-12-16 22:00] VITALS: BP 129/84
[2017-12-17 06:00] VITALS: BP 132/66
[2017-12-17 06:40] LABS: BASOPHILS # (AUTO) 0.1 X10'3 (0-0.2); BASOPHILS % (AUTO) 0.8 % (0-1); EOSINOPHILS # (AUTO) 0.2 X10'3 (0-0.9); EOSINOPHILS % (AUTO) 1.6 % (0-6); HEMATOCRIT 26.8 % (42.0-52.0); LYMPHOCYTES # (AUTO) 0.6 X10'3 (1.1-4.8); MEAN CORPUSCULAR HEMOGLOBIN 27.6 PG (27.0-31.0); MEAN CORPUSCULAR HGB CONC 33.5 % (33.0-36.5); MEAN CORPUSCULAR VOLUME 82.5 FL (78-98); MONOCYTES # (AUTO) 0.9 X10'3 (0-0.9); MONOCYTES % (AUTO) 9.5 % (2-12); NEUTROPHILS # (AUTO) 8.1 X10'3 (1.8-7.7); NEUTROPHILS % (AUTO) 82.1 % (42-75); PLATELET COUNT 218 X10'3 (140-440); RED BLOOD COUNT 3.25 X10'6 (4.70-6.10); RED CELL DISTRIBUTION WIDTH 16.2 % (11.5-14.5); WHITE BLOOD COUNT 9.9 X10'3 (4.5-11.0)
[2017-12-17 06:53] LABS: ALBUMIN 1.9 G/DL (3.4-5.0); ANION GAP 5 (8-16); BLOOD UREA NITROGEN 16 MG/DL (7-18); BUN/CREATININE RATIO 21.6 (5.4-32.0); CALCIUM 8.8 MG/DL (8.5-10.1); CHLORIDE 98 MMOL/L (99-107); CREATININE 0.74 MG/DL (0.60-1.10); GLUCOSE 149 MG/DL (70-104); POTASSIUM 5.1 MMOL/L (3.5-5.1); SODIUM 132 MMOL/L (135-145); TOTAL CARBON DIOXIDE 29.2 MMOL/L (24-32); eGFR > 90 ML/MIN
[2017-12-17] MEDS: neomy sulf/polymyx B sulf/HC otic soln 10ml RIGHT EAR SCH ×4 (07:31→21:04)
[2017-12-17] MEDS: HYDROcodone/acetaminophen 10/325mg tab PO PRN (07:31)
[2017-12-17] MEDS: ascorbic acid 500mg tablet PO SCH (07:31)
[2017-12-17] MEDS: multivitamins, therapeutics tablet PO SCH (07:31)
[2017-12-17] MEDS: lactobacillus rhamnosus 10,000 MMU CELLS/CAPSULE PO SCH ×2 (07:31→19:45)
[2017-12-17] MEDS: atorvastatin 10mg tablet PO SCH (07:32)
[2017-12-17] MEDS: fluconazole 100mg tablet PO SCH (07:32)
[2017-12-17] MEDS: pantoprazole 40mg Tablet.DR PO SCH (07:32)
[2017-12-17] MEDS: gabapentin 300mg capsule PO SCH ×3 (07:32→16:31)
[2017-12-17] MEDS: NUT.TX.GLUC.INTOLER,LAC-FR,SOY (GLUCERNA) 237 ML PO SCH ×3 (08:00→18:00)
[2017-12-17] MEDS: K and/or MAG REPLACEMENT MC SCH (08:00)
[2017-12-17] MEDS: dronabinol 2.5mg capsule PO SCH ×2 (11:30→15:19)
[2017-12-17] MEDS: insulin Lispro (HumaLOG) vial - multi-dose SQ SCH (15:47)
[2017-12-17] MEDS: normal saline 1000ml 1,000 ML IV SCH (15:50)
[2017-12-17 22:00] VITALS: BP 150/72
[2017-12-18 05:49] LABS: BASOPHILS % (AUTO) 0.4 % (0-1); EOSINOPHILS # (AUTO) 0.1 X10'3 (0-0.9); EOSINOPHILS % (AUTO) 1.7 % (0-6); HEMATOCRIT 28.3 % (42.0-52.0); HEMOGLOBIN 9.7 g/dl (14.0-17.9); LYMPHOCYTES # (AUTO) 0.5 X10'3 (1.1-4.8); LYMPHOCYTES % (AUTO) 5.9 % (21-51); MEAN CORPUSCULAR HEMOGLOBIN 27.8 PG (27.0-31.0); MEAN CORPUSCULAR HGB CONC 34.1 % (33.0-36.5); MEAN CORPUSCULAR VOLUME 81.4 FL (78-98); MEAN PLATELET VOLUME 7.8 FL (7.4-10.4); MONOCYTES # (AUTO) 0.8 X10'3 (0-0.9); MONOCYTES % (AUTO) 10.1 % (2-12); NEUTROPHILS # (AUTO) 6.5 X10'3 (1.8-7.7); NEUTROPHILS % (AUTO) 81.9 % (42-75); PLATELET COUNT 228 X10'3 (140-440); RED BLOOD COUNT 3.47 X10'6 (4.70-6.10); RED CELL DISTRIBUTION WIDTH 16.8 % (11.5-14.5); WHITE BLOOD COUNT 7.9 X10'3 (4.5-11.0)
[2017-12-18 06:16] LABS: ALBUMIN 2.1 G/DL (3.4-5.0); ANION GAP 8 (8-16); BLOOD UREA NITROGEN 20 MG/DL (7-18); CALCIUM 9.2 MG/DL (8.5-10.1); CHLORIDE 98 MMOL/L (99-107); CREATININE 0.77 MG/DL (0.60-1.10); GLUCOSE 141 MG/DL (70-104); POTASSIUM 4.3 MMOL/L (3.5-5.1); SODIUM 135 MMOL/L (135-145); TOTAL CARBON DIOXIDE 29.3 MMOL/L (24-32); eGFR > 90 ML/MIN
[2017-12-18 07:00] VITALS: BP 148/88
[2017-12-18] MEDS: pantoprazole 40mg Tablet.DR PO SCH (07:30)
[2017-12-18] MEDS: K and/or MAG REPLACEMENT MC SCH (08:00)
[2017-12-18] MEDS: fluconazole 100mg tablet PO SCH (08:00)
[2017-12-18] MEDS: multivitamins, therapeutics tablet PO SCH (08:00)
[2017-12-18] MEDS: NUT.TX.GLUC.INTOLER,LAC-FR,SOY (GLUCERNA) 237 ML PO SCH ×3 (08:00→17:34)
[2017-12-18] MEDS: lactobacillus rhamnosus 10,000 MMU CELLS/CAPSULE PO SCH ×2 (08:00→20:00)
[2017-12-18] MEDS: ascorbic acid 500mg tablet PO SCH (08:00)
[2017-12-18] MEDS: gabapentin 300mg capsule PO SCH ×3 (08:00→16:00)
[2017-12-18] MEDS: atorvastatin 10mg tablet PO SCH (08:00)
[2017-12-18] MEDS: neomy sulf/polymyx B sulf/HC otic soln 10ml RIGHT EAR SCH ×4 (08:14→20:47)
[2017-12-18] MEDS: dronabinol 2.5mg capsule PO SCH ×2 (11:30→16:30)
[2017-12-18 13:18] VITALS: BP 138/64
[2017-12-18 17:00] VITALS: BP 150/72
[2017-12-18] MEDS: insulin Lispro (HumaLOG) vial - multi-dose SQ SCH (17:44)
[2017-12-18] MEDS: normal saline 1000ml 1,000 ML IV SCH (20:07)
[2017-12-18 22:00] VITALS: BP 147/70
[2017-12-19] VITALS (20 sets, daily range): BP systolic 136–170; BP diastolic 64–82
[2017-12-19 06:02] LABS: INR 1.1 INR; PARTIAL THROMBOPLASTIN TIME 32 SECONDS (22-32); PROTHROMBIN TIME 11.8 SECONDS (9.0-12.0)
[2017-12-19 06:07] LABS: BASOPHILS % (AUTO) 0.6 % (0-1); EOSINOPHILS # (AUTO) 0.1 X10'3 (0-0.9); EOSINOPHILS % (AUTO) 1.8 % (0-6); HEMATOCRIT 30.4 % (42.0-52.0); HEMOGLOBIN 10.1 g/dl (14.0-17.9); LYMPHOCYTES # (AUTO) 0.4 X10'3 (1.1-4.8); LYMPHOCYTES % (AUTO) 6.4 % (21-51); MEAN CORPUSCULAR HEMOGLOBIN 27.2 PG (27.0-31.0); MEAN CORPUSCULAR HGB CONC 33.3 % (33.0-36.5); MEAN CORPUSCULAR VOLUME 81.8 FL (78-98); MEAN PLATELET VOLUME 8.1 FL (7.4-10.4); MONOCYTES # (AUTO) 0.7 X10'3 (0-0.9); MONOCYTES % (AUTO) 10.1 % (2-12); NEUTROPHILS # (AUTO) 5.7 X10'3 (1.8-7.7); NEUTROPHILS % (AUTO) 81.1 % (42-75); PLATELET COUNT 236 X10'3 (140-440); RED BLOOD COUNT 3.72 X10'6 (4.70-6.10); RED CELL DISTRIBUTION WIDTH 16.2 % (11.5-14.5)
[2017-12-19 06:13] LABS: ALBUMIN 2.2 G/DL (3.4-5.0); ANION GAP 8 (8-16); BLOOD UREA NITROGEN 20 MG/DL (7-18); CHLORIDE 100 MMOL/L (99-107); CREATININE 0.69 MG/DL (0.60-1.10); GLUCOSE 165 MG/DL (70-104); SODIUM 137 MMOL/L (135-145); eGFR > 90 ML/MIN
[2017-12-19] MEDS: pantoprazole 40mg Tablet.DR PO SCH (07:30)
[2017-12-19] MEDS: neomy sulf/polymyx B sulf/HC otic soln 10ml RIGHT EAR SCH ×4 (07:43→21:00)
[2017-12-19] MEDS: fluconazole 100mg tablet PO SCH (08:00)
[2017-12-19] MEDS: atorvastatin 10mg tablet PO SCH (08:00)
[2017-12-19] MEDS: multivitamins, therapeutics tablet PO SCH (08:00)
[2017-12-19] MEDS: lactobacillus rhamnosus 10,000 MMU CELLS/CAPSULE PO SCH (08:00)
[2017-12-19] MEDS: gabapentin 300mg capsule PO SCH ×3 (08:00→16:00)
[2017-12-19] MEDS: NUT.TX.GLUC.INTOLER,LAC-FR,SOY (GLUCERNA) 237 ML PO SCH ×2 (08:00→13:00)
[2017-12-19] MEDS: ascorbic acid 500mg tablet PO SCH (08:00)
[2017-12-19] MEDS: K and/or MAG REPLACEMENT MC SCH (08:00)
[2017-12-19] MEDS ORDERED: midazolam 2 mg/2 ml injection IV PRN (08:10)
[2017-12-19] MEDS ORDERED: fentaNYL/PF 50MCG/1 ML 2ML syringe IV PRN (08:10)
[2017-12-19] MEDS ORDERED: midazolam 2 mg/2 ml injection ONE (08:19)
[2017-12-19] MEDS ORDERED: fentaNYL/PF 50MCG/1 ML 2ML syringe ONE ×3 (08:20→14:56)
[2017-12-19] MEDS: dronabinol 2.5mg capsule PO SCH ×2 (11:30→16:30)
[2017-12-19] MEDS ORDERED: HYDROmorphone inj. 0.5 MG/0.5 ML DISP.SYRIN IV PRN (12:35)
[2017-12-19] MEDS ORDERED: LIDOcaine Viscous 15ml cup ONE (13:43)
[2017-12-19] MEDS ORDERED: MIDAZolam 5mg/5ml vial ONE (13:43)
[2017-12-19] MEDS ORDERED: ceFAZolin 1,000 MG/D5W 50ML IVPB Premixed bag IV ONE (14:05)
[2017-12-19] MEDS: insulin Lispro (HumaLOG) vial - multi-dose SQ SCH (16:30)
[2017-12-19] MEDS ORDERED: acetaminophen 325mg/10.15ml oral unit dose solution PO PRN (18:21)
[2017-12-19] MEDS ORDERED: baclofen 10mg tablet PEG PRN (18:22)
[2017-12-19] MEDS ORDERED: dextrose ORAL solution 15 GM/59 ML bottle PEG PRN ×2 (18:22→18:24)
[2017-12-19] MEDS ORDERED: hyDRALAzine 10mg tablet PEG PRN (18:24)
[2017-12-19] MEDS ORDERED: acetaminophen 325mg/10.15ml oral unit dose solution PEG PRN (18:26)
[2017-12-19] MEDS ORDERED: mag hydrox/Alum hydrox/simeth 30ml oral suspension PEG PRN (18:27)
[2017-12-19] MEDS ORDERED: multivitamin oral liquid (Certavite) 5ml cup PO SCH (18:28)
[2017-12-19] MEDS: normal saline 1000ml 1,000 ML IV SCH ×2 (22:05→23:05)
[2017-12-19] MEDS: lactobacillus rhamnosus 10,000 MMU CELLS/CAPSULE PEG SCH (23:05)
[2017-12-19] MEDS: gabapentin 300mg capsule PEG SCH (23:07)
[2017-12-20 05:00] VITALS: BP 157/71
[2017-12-20 06:07] LABS: BASOPHILS % (AUTO) 0.1 % (0-1); EOSINOPHILS # (AUTO) 0.1 X10'3 (0-0.9); EOSINOPHILS % (AUTO) 1.5 % (0-6); HEMATOCRIT 28.6 % (42.0-52.0); HEMOGLOBIN 9.5 g/dl (14.0-17.9); LYMPHOCYTES # (AUTO) 0.6 X10'3 (1.1-4.8); MEAN CORPUSCULAR HEMOGLOBIN 27.4 PG (27.0-31.0); MEAN CORPUSCULAR HGB CONC 33.3 % (33.0-36.5); MEAN CORPUSCULAR VOLUME 82.2 FL (78-98); MONOCYTES # (AUTO) 0.9 X10'3 (0-0.9); NEUTROPHILS # (AUTO) 8.3 X10'3 (1.8-7.7); NEUTROPHILS % (AUTO) 83.4 % (42-75); PLATELET COUNT 207 X10'3 (140-440); RED BLOOD COUNT 3.48 X10'6 (4.70-6.10); RED CELL DISTRIBUTION WIDTH 16.3 % (11.5-14.5)
[2017-12-20 06:35] LABS: ALBUMIN 2.1 G/DL (3.4-5.0); ANION GAP 10 (8-16); BLOOD UREA NITROGEN 22 MG/DL (7-18); BUN/CREATININE RATIO 30.6 (5.4-32.0); CHLORIDE 104 MMOL/L (99-107); CREATININE 0.72 MG/DL (0.60-1.10); GLUCOSE 164 MG/DL (70-104); POTASSIUM 4.1 MMOL/L (3.5-5.1); SODIUM 140 MMOL/L (135-145); TOTAL CARBON DIOXIDE 26.1 MMOL/L (24-32); eGFR > 90 ML/MIN
[2017-12-20 06:55] LABS: PREALBUMIN 13.6 MG/DL (19-36)
[2017-12-20] MEDS: pantoprazole 40mg Tablet.DR PO SCH (07:30)
[2017-12-20] MEDS: neomy sulf/polymyx B sulf/HC otic soln 10ml RIGHT EAR SCH ×4 (08:00→20:08)
[2017-12-20] MEDS: NUT.TX.GLUC.INTOLER,LAC-FR,SOY (GLUCERNA) 237 ML PEG SCH ×3 (08:00→18:00)
[2017-12-20] MEDS: K and/or MAG REPLACEMENT MC SCH (08:00)
[2017-12-20] MEDS: normal saline 1000ml 1,000 ML IV SCH ×2 (08:46→09:21)
[2017-12-20] MEDS: lactobacillus rhamnosus 10,000 MMU CELLS/CAPSULE PEG SCH ×2 (09:11→19:56)
[2017-12-20] MEDS: fluconazole 100mg tablet PEG SCH (09:12)
[2017-12-20] MEDS: atorvastatin 10mg tablet PEG SCH (09:12)
[2017-12-20] MEDS: gabapentin 300mg capsule PEG SCH ×3 (09:13→23:46)
[2017-12-20] MEDS: ascorbic acid 500mg tablet PEG SCH (09:13)
[2017-12-20] MEDS: multivitamin oral liquid (Certavite) 5ml cup PEG SCH (09:14)
[2017-12-20 10:00] VITALS: BP 157/86
[2017-12-20] MEDS: dronabinol 2.5mg capsule PO SCH ×2 (11:30→16:30)
[2017-12-20] MEDS: insulin regular, human vial - multi-dose SQ SCH ×2 (15:45→20:27)
[2017-12-20 18:00] VITALS: BP 140/70
[2017-12-20] MEDS: heparin, porcine 5000 units/ml vial SQ SCH (19:57)
[2017-12-20 22:00] VITALS: BP 156/67
[2017-12-21] MEDS: insulin regular, human vial - multi-dose SQ SCH ×4 (02:59→22:03)
[2017-12-21 05:00] VITALS: BP 154/70
[2017-12-21] MEDS: K and/or MAG REPLACEMENT MC SCH (07:20)
[2017-12-21] MEDS: pantoprazole 40mg Tablet.DR PO SCH (07:24)
[2017-12-21] MEDS: NUT.TX.GLUC.INTOLER,LAC-FR,SOY (GLUCERNA) 237 ML PEG SCH (07:25)
[2017-12-21] MEDS: fluconazole 100mg tablet PEG SCH (07:27)
[2017-12-21] MEDS: lactobacillus rhamnosus 10,000 MMU CELLS/CAPSULE PEG SCH ×2 (07:27→20:33)
[2017-12-21] MEDS: multivitamin oral liquid (Certavite) 5ml cup PEG SCH (07:27)
[2017-12-21] MEDS: gabapentin 300mg capsule PEG SCH ×2 (07:28→16:12)
[2017-12-21] MEDS: ascorbic acid 500mg tablet PEG SCH (07:28)
[2017-12-21] MEDS: atorvastatin 10mg tablet PEG SCH (07:28)
[2017-12-21] MEDS: heparin, porcine 5000 units/ml vial SQ SCH ×2 (07:42→20:34)
[2017-12-21] MEDS: neomy sulf/polymyx B sulf/HC otic soln 10ml RIGHT EAR SCH ×4 (07:42→20:34)
[2017-12-21 08:13] LABS: BASOPHILS % (AUTO) 0.2 % (0-1); EOSINOPHILS # (AUTO) 0.2 X10'3 (0-0.9); EOSINOPHILS % (AUTO) 1.7 % (0-6); HEMATOCRIT 27.6 % (42.0-52.0); HEMOGLOBIN 9.1 g/dl (14.0-17.9); LYMPHOCYTES # (AUTO) 0.5 X10'3 (1.1-4.8); LYMPHOCYTES % (AUTO) 5.9 % (21-51); MEAN CORPUSCULAR HEMOGLOBIN 27.3 PG (27.0-31.0); MEAN CORPUSCULAR HGB CONC 32.8 % (33.0-36.5); MEAN CORPUSCULAR VOLUME 83.3 FL (78-98); MEAN PLATELET VOLUME 7.9 FL (7.4-10.4); MONOCYTES # (AUTO) 0.9 X10'3 (0-0.9); MONOCYTES % (AUTO) 9.6 % (2-12); NEUTROPHILS # (AUTO) 7.6 X10'3 (1.8-7.7); NEUTROPHILS % (AUTO) 82.6 % (42-75); PLATELET COUNT 154 X10'3 (140-440); RED BLOOD COUNT 3.32 X10'6 (4.70-6.10); RED CELL DISTRIBUTION WIDTH 16.9 % (11.5-14.5); WHITE BLOOD COUNT 9.2 X10'3 (4.5-11.0)
[2017-12-21 08:31] LABS: ALBUMIN 1.9 G/DL (3.4-5.0); ANION GAP 7 (8-16); BLOOD UREA NITROGEN 19 MG/DL (7-18); BUN/CREATININE RATIO 23.5 (5.4-32.0); CALCIUM 8.9 MG/DL (8.5-10.1); CHLORIDE 104 MMOL/L (99-107); CREATININE 0.81 MG/DL (0.60-1.10); GLUCOSE 270 MG/DL (70-104); POTASSIUM 3.9 MMOL/L (3.5-5.1); SODIUM 140 MMOL/L (135-145); TOTAL CARBON DIOXIDE 29.1 MMOL/L (24-32); eGFR > 90 ML/MIN
[2017-12-21 10:00] VITALS: BP 154/61
[2017-12-21] MEDS: normal saline 1000ml 1,000 ML IV SCH (15:35)
[2017-12-21 18:00] VITALS: BP 151/62
[2017-12-21 21:00] VITALS: BP 165/62
[2017-12-22] MEDS: gabapentin 300mg capsule PEG SCH ×3 (00:15→16:33)
[2017-12-22] MEDS: insulin regular, human vial - multi-dose SQ SCH ×4 (02:52→20:39)
[2017-12-22] MEDS: magnesium hydroxide 30ml (MOM) UD suspension PEG PRN (04:47)
[2017-12-22 06:00] VITALS: BP 150/80
[2017-12-22] MEDS: pantoprazole 40mg Tablet.DR PO SCH (07:30)
[2017-12-22] MEDS: K and/or MAG REPLACEMENT MC SCH (08:00)
[2017-12-22 08:11] LABS: ALBUMIN 1.9 G/DL (3.4-5.0); ANION GAP 8 (8-16); BLOOD UREA NITROGEN 15 MG/DL (7-18); BUN/CREATININE RATIO 26.3 (5.4-32.0); CALCIUM 8.3 MG/DL (8.5-10.1); CHLORIDE 101 MMOL/L (99-107); CREATININE 0.57 MG/DL (0.60-1.10); GLUCOSE 215 MG/DL (70-104); SODIUM 137 MMOL/L (135-145); TOTAL CARBON DIOXIDE 28.4 MMOL/L (24-32); eGFR > 90 ML/MIN
[2017-12-22 08:14] LABS: BASOPHILS % (AUTO) 0.4 % (0-1); EOSINOPHILS # (AUTO) 0.4 X10'3 (0-0.9); EOSINOPHILS % (AUTO) 3.4 % (0-6); HEMATOCRIT 28.1 % (42.0-52.0); HEMOGLOBIN 9.2 g/dl (14.0-17.9); LYMPHOCYTES # (AUTO) 0.5 X10'3 (1.1-4.8); LYMPHOCYTES % (AUTO) 4.6 % (21-51); MEAN CORPUSCULAR HEMOGLOBIN 27.3 PG (27.0-31.0); MEAN CORPUSCULAR HGB CONC 32.7 % (33.0-36.5); MEAN CORPUSCULAR VOLUME 83.4 FL (78-98); MEAN PLATELET VOLUME 8.9 FL (7.4-10.4); MONOCYTES # (AUTO) 0.9 X10'3 (0-0.9); MONOCYTES % (AUTO) 8.8 % (2-12); NEUTROPHILS # (AUTO) 8.9 X10'3 (1.8-7.7); NEUTROPHILS % (AUTO) 82.8 % (42-75); PLATELET COUNT 147 X10'3 (140-440); RED BLOOD COUNT 3.37 X10'6 (4.70-6.10); WHITE BLOOD COUNT 10.8 X10'3 (4.5-11.0)
[2017-12-22] MEDS: fluconazole 100mg tablet PEG SCH (09:00)
[2017-12-22] MEDS: lactobacillus rhamnosus 10,000 MMU CELLS/CAPSULE PEG SCH ×2 (09:00→20:42)
[2017-12-22] MEDS: multivitamin oral liquid (Certavite) 5ml cup PEG SCH (09:00)
[2017-12-22] MEDS: atorvastatin 10mg tablet PEG SCH (09:00)
[2017-12-22] MEDS: neomy sulf/polymyx B sulf/HC otic soln 10ml RIGHT EAR SCH ×4 (09:01→21:07)
[2017-12-22] MEDS: ascorbic acid 500mg tablet PEG SCH (09:01)
[2017-12-22] MEDS: heparin, porcine 5000 units/ml vial SQ SCH ×2 (09:02→20:44)
[2017-12-22 10:00] VITALS: BP 148/65
[2017-12-22] MEDS: pantoprazole 40 MG vial IV SCH (11:54)
[2017-12-22 18:00] VITALS: BP 138/60
[2017-12-22 22:00] VITALS: BP 136/66
[2017-12-23] MEDS: gabapentin 300mg capsule PEG SCH ×4 (00:06→23:56)
[2017-12-23] MEDS: normal saline 1000ml 1,000 ML IV SCH (00:06)
[2017-12-23] MEDS: insulin regular, human vial - multi-dose SQ SCH ×4 (02:17→20:23)
[2017-12-23 06:00] VITALS: BP 146/68
[2017-12-23] MEDS: K and/or MAG REPLACEMENT MC SCH (07:32)
[2017-12-23] MEDS: multivitamin oral liquid (Certavite) 5ml cup PEG SCH (07:49)
[2017-12-23] MEDS: pantoprazole 40 MG vial IV SCH (07:49)
[2017-12-23] MEDS: lactobacillus rhamnosus 10,000 MMU CELLS/CAPSULE PEG SCH ×2 (07:51→19:33)
[2017-12-23] MEDS: atorvastatin 10mg tablet PEG SCH (07:51)
[2017-12-23] MEDS: ascorbic acid 500mg tablet PEG SCH (07:51)
[2017-12-23] MEDS: neomy sulf/polymyx B sulf/HC otic soln 10ml RIGHT EAR SCH ×4 (07:52→20:21)
[2017-12-23] MEDS: heparin, porcine 5000 units/ml vial SQ SCH ×2 (08:00→19:34)
[2017-12-23 10:34] VITALS: BP 103/52
[2017-12-23] MEDS: magnesium hydroxide 30ml (MOM) UD suspension PEG PRN (17:35)
[2017-12-23 18:00] VITALS: BP 157/72
[2017-12-23 22:00] VITALS: BP 139/62
[2017-12-24] MEDS: insulin regular, human vial - multi-dose SQ SCH ×4 (02:03→20:06)
[2017-12-24 06:00] VITALS: BP 140/72
[2017-12-24 06:53] LABS: BASOPHILS % (AUTO) 0.1 % (0-1); EOSINOPHILS # (AUTO) 0.5 X10'3 (0-0.9); EOSINOPHILS % (AUTO) 3.6 % (0-6); HEMOGLOBIN 10.5 g/dl (14.0-17.9); LYMPHOCYTES # (AUTO) 0.4 X10'3 (1.1-4.8); MEAN CORPUSCULAR HEMOGLOBIN 27.3 PG (27.0-31.0); MEAN CORPUSCULAR HGB CONC 32.8 % (33.0-36.5); MEAN CORPUSCULAR VOLUME 83.2 FL (78-98); MEAN PLATELET VOLUME 9.9 FL (7.4-10.4); MONOCYTES # (AUTO) 1.2 X10'3 (0-0.9); MONOCYTES % (AUTO) 8.5 % (2-12); NEUTROPHILS # (AUTO) 12.4 X10'3 (1.8-7.7); NEUTROPHILS % (AUTO) 84.8 % (42-75); PLATELET COUNT 169 X10'3 (140-440); RED BLOOD COUNT 3.84 X10'6 (4.70-6.10); RED CELL DISTRIBUTION WIDTH 17.3 % (11.5-14.5); WHITE BLOOD COUNT 14.6 X10'3 (4.5-11.0)
[2017-12-24 07:06] LABS: ALANINE AMINOTRANSFERASE 45 U/L (12-78); ALBUMIN 2.1 G/DL (3.4-5.0); ALBUMIN/GLOBULIN RATIO 0.4 (1.1-1.5); ALKALINE PHOSPHATASE 154 IU/L (46-116); ANION GAP 6 (8-16); ASPARTATE AMINO TRANSFERASE 37 U/L (10-37); BILIRUBIN,TOTAL 0.4 MG/DL (0.1-1.0); BLOOD UREA NITROGEN 14 MG/DL (7-18); BUN/CREATININE RATIO 21.2 (5.4-32.0); CALCIUM 9.5 MG/DL (8.5-10.1); CHLORIDE 98 MMOL/L (99-107); CREATININE 0.66 MG/DL (0.60-1.10); GLUCOSE 83 MG/DL (70-104); POTASSIUM 5.1 MMOL/L (3.5-5.1); SODIUM 133 MMOL/L (135-145); TOTAL CARBON DIOXIDE 29.3 MMOL/L (24-32); eGFR > 90 ML/MIN
[2017-12-24] MEDS: K and/or MAG REPLACEMENT MC SCH (08:00)
[2017-12-24] MEDS: heparin, porcine 5000 units/ml vial SQ SCH ×2 (08:00→19:57)
[2017-12-24] MEDS: neomy sulf/polymyx B sulf/HC otic soln 10ml RIGHT EAR SCH ×4 (08:20→20:08)
[2017-12-24] MEDS: multivitamin oral liquid (Certavite) 5ml cup PEG SCH (08:21)
[2017-12-24] MEDS: gabapentin 300mg capsule PEG SCH ×3 (08:21→23:57)
[2017-12-24] MEDS: atorvastatin 10mg tablet PEG SCH (08:21)
[2017-12-24] MEDS: ascorbic acid 500mg tablet PEG SCH (08:21)
[2017-12-24] MEDS: pantoprazole 40 MG vial IV SCH (08:21)
[2017-12-24] MEDS: lactobacillus rhamnosus 10,000 MMU CELLS/CAPSULE PEG SCH ×2 (08:22→19:57)
[2017-12-24] MEDS: normal saline 1000ml 1,000 ML IV SCH (08:23)
[2017-12-24 10:00] VITALS: BP 114/50
[2017-12-24 18:00] VITALS: BP 118/65
[2017-12-24 22:00] VITALS: BP 131/66
[2017-12-25] MEDS: insulin regular, human vial - multi-dose SQ SCH ×4 (02:12→20:12)
[2017-12-25 06:00] VITALS: BP 135/65
[2017-12-25] MEDS: K and/or MAG REPLACEMENT MC SCH (07:41)
[2017-12-25] MEDS: ascorbic acid 500mg tablet PEG SCH (07:48)
[2017-12-25] MEDS: gabapentin 300mg capsule PEG SCH ×3 (07:48→23:47)
[2017-12-25] MEDS: multivitamin oral liquid (Certavite) 5ml cup PEG SCH (07:48)
[2017-12-25] MEDS: lactobacillus rhamnosus 10,000 MMU CELLS/CAPSULE PEG SCH ×2 (07:48→20:07)
[2017-12-25] MEDS: atorvastatin 10mg tablet PEG SCH (07:48)
[2017-12-25] MEDS: heparin, porcine 5000 units/ml vial SQ SCH ×2 (07:49→20:07)
[2017-12-25] MEDS: neomy sulf/polymyx B sulf/HC otic soln 10ml RIGHT EAR SCH ×4 (07:49→20:08)
[2017-12-25 09:16] LABS: ALANINE AMINOTRANSFERASE 50 U/L (12-78); ALBUMIN 1.8 G/DL (3.4-5.0); ALBUMIN/GLOBULIN RATIO 0.4 (1.1-1.5); ALKALINE PHOSPHATASE 175 IU/L (46-116); ANION GAP 4 (8-16); ASPARTATE AMINO TRANSFERASE 45 U/L (10-37); BILIRUBIN,TOTAL 0.4 MG/DL (0.1-1.0); BLOOD UREA NITROGEN 19 MG/DL (7-18); BUN/CREATININE RATIO 28.8 (5.4-32.0); CALCIUM 8.4 MG/DL (8.5-10.1); CHLORIDE 98 MMOL/L (99-107); CREATININE 0.66 MG/DL (0.60-1.10); GLUCOSE 143 MG/DL (70-104); POTASSIUM 5.3 MMOL/L (3.5-5.1); SODIUM 132 MMOL/L (135-145); TOTAL CARBON DIOXIDE 30.4 MMOL/L (24-32); TOTAL PROTEIN 6.3 G/DL (6.4-8.2); eGFR > 90 ML/MIN
[2017-12-25 10:03] LABS: BASOPHILS % (AUTO) 0.4 % (0-1); EOSINOPHILS % (AUTO) 2.9 % (0-6); HEMATOCRIT 27.7 % (42.0-52.0); HEMOGLOBIN 9.2 g/dl (14.0-17.9); LYMPHOCYTES % (AUTO) 3.7 % (21-51); MEAN CORPUSCULAR HEMOGLOBIN 27.8 PG (27.0-31.0); MEAN CORPUSCULAR HGB CONC 33.4 % (33.0-36.5); MEAN CORPUSCULAR VOLUME 83.4 FL (78-98); MEAN PLATELET VOLUME 9.5 FL (7.4-10.4); MONOCYTES % (AUTO) 9.2 % (2-12); NEUTROPHILS # (AUTO) 9.5 X10'3 (1.8-7.7); NEUTROPHILS % (AUTO) 83.8 % (42-75); PLATELET COUNT 173 X10'3 (140-440); RED BLOOD COUNT 3.32 X10'6 (4.70-6.10); RED CELL DISTRIBUTION WIDTH 16.9 % (11.5-14.5); WHITE BLOOD COUNT 11.2 X10'3 (4.5-11.0)
[2017-12-25 10:04] LABS: EOSINOPHILS # (AUTO) 0.3 X10'3 (0-0.9); LYMPHOCYTES # (AUTO) 0.4 X10'3 (1.1-4.8)
[2017-12-25 10:14] VITALS: BP 135/61
[2017-12-25] MEDS: magnesium hydroxide 30ml (MOM) UD suspension PEG PRN (13:08)
[2017-12-25] MEDS ORDERED: bisacodyl 10mg suppository rectal RC STA (16:10)
[2017-12-25] MEDS ORDERED: sodium polystyrene sulfonate 15gm/60ml oral suspension PO ONE (16:25)
[2017-12-25 18:00] VITALS: BP 115/64
[2017-12-25] MEDS ORDERED: bisacodyl 10mg suppository rectal RC ONE (20:00)
[2017-12-25 22:00] VITALS: BP 102/64
[2017-12-25] MEDS: normal saline 1000ml 1,000 ML IV SCH (23:20)
[2017-12-26] MEDS: insulin regular, human vial - multi-dose SQ SCH ×4 (02:43→20:33)
[2017-12-26] MEDS ORDERED: mineral oil 133ml enema RC ONE (05:00)
[2017-12-26 06:00] VITALS: BP_SYST 101; BP_SYST 115; BP_DIAS 64
[2017-12-26] MEDS: K and/or MAG REPLACEMENT MC SCH (08:00)
[2017-12-26] MEDS ORDERED: normal saline 1000ml 1,000 ML IV SCH (08:30)
[2017-12-26] MEDS: atorvastatin 10mg tablet PEG SCH (08:41)
[2017-12-26] MEDS: lactobacillus rhamnosus 10,000 MMU CELLS/CAPSULE PEG SCH ×2 (08:41→20:08)
[2017-12-26] MEDS: gabapentin 300mg capsule PEG SCH ×3 (08:41→23:49)
[2017-12-26] MEDS: multivitamin oral liquid (Certavite) 5ml cup PEG SCH (08:41)
[2017-12-26] MEDS: ascorbic acid 500mg tablet PEG SCH (08:41)
[2017-12-26] MEDS: neomy sulf/polymyx B sulf/HC otic soln 10ml RIGHT EAR SCH ×4 (08:42→23:50)
[2017-12-26] MEDS: heparin, porcine 5000 units/ml vial SQ SCH ×2 (08:43→20:09)
[2017-12-26 08:51] LABS: BASOPHILS # (AUTO) 0.1 X10'3 (0-0.2); BASOPHILS % (AUTO) 0.6 % (0-1); EOSINOPHILS # (AUTO) 0.1 X10'3 (0-0.9); EOSINOPHILS % (AUTO) 1.1 % (0-6); HEMATOCRIT 27.4 % (42.0-52.0); HEMOGLOBIN 9.3 g/dl (14.0-17.9); LYMPHOCYTES # (AUTO) 0.6 X10'3 (1.1-4.8); LYMPHOCYTES % (AUTO) 4.5 % (21-51); MEAN CORPUSCULAR HEMOGLOBIN 28.1 PG (27.0-31.0); MEAN CORPUSCULAR HGB CONC 33.8 % (33.0-36.5); MONOCYTES # (AUTO) 1.6 X10'3 (0-0.9); MONOCYTES % (AUTO) 11.8 % (2-12); NEUTROPHILS # (AUTO) 11.2 X10'3 (1.8-7.7); PLATELET COUNT 177 X10'3 (140-440); RED CELL DISTRIBUTION WIDTH 16.9 % (11.5-14.5); WHITE BLOOD COUNT 13.6 X10'3 (4.5-11.0)
[2017-12-26 08:59] LABS: ALANINE AMINOTRANSFERASE 49 U/L (12-78); ALBUMIN 1.8 G/DL (3.4-5.0); ALBUMIN/GLOBULIN RATIO 0.4 (1.1-1.5); ALKALINE PHOSPHATASE 182 IU/L (46-116); ANION GAP 5 (8-16); ASPARTATE AMINO TRANSFERASE 40 U/L (10-37); BILIRUBIN,TOTAL 0.3 MG/DL (0.1-1.0); BLOOD UREA NITROGEN 32 MG/DL (7-18); BUN/CREATININE RATIO 37.6 (5.4-32.0); CALCIUM 8.5 MG/DL (8.5-10.1); CHLORIDE 97 MMOL/L (99-107); CREATININE 0.85 MG/DL (0.60-1.10); GLUCOSE 149 MG/DL (70-104); POTASSIUM 5.1 MMOL/L (3.5-5.1); SODIUM 134 MMOL/L (135-145); TOTAL CARBON DIOXIDE 32.2 MMOL/L (24-32); TOTAL PROTEIN 6.3 G/DL (6.4-8.2); eGFR 88 ML/MIN
[2017-12-26 10:00] VITALS: BP 98/59
[2017-12-26] MEDS: benzocaine/menthol oral lozeng 1 EACH BOX MM PRN (14:29)
[2017-12-26 18:00] VITALS: BP 105/54
[2017-12-26 22:00] VITALS: BP 107/44
[2017-12-27] MEDS: insulin regular, human vial - multi-dose SQ SCH ×3 (02:22→20:26)
[2017-12-27 06:00] VITALS: BP 126/55
[2017-12-27 07:27] LABS: BASOPHILS # (AUTO) 0.1 X10'3 (0-0.2); BASOPHILS % (AUTO) 0.8 % (0-1); EOSINOPHILS # (AUTO) 0.2 X10'3 (0-0.9); EOSINOPHILS % (AUTO) 1.9 % (0-6); HEMATOCRIT 26.4 % (42.0-52.0); HEMOGLOBIN 8.9 g/dl (14.0-17.9); LYMPHOCYTES # (AUTO) 0.4 X10'3 (1.1-4.8); LYMPHOCYTES % (AUTO) 4.1 % (21-51); MEAN CORPUSCULAR HEMOGLOBIN 27.5 PG (27.0-31.0); MEAN CORPUSCULAR HGB CONC 33.5 % (33.0-36.5); MEAN CORPUSCULAR VOLUME 82.1 FL (78-98); MEAN PLATELET VOLUME 9.2 FL (7.4-10.4); MONOCYTES # (AUTO) 1.3 X10'3 (0-0.9); MONOCYTES % (AUTO) 12.3 % (2-12); NEUTROPHILS # (AUTO) 8.3 X10'3 (1.8-7.7); NEUTROPHILS % (AUTO) 80.9 % (42-75); PLATELET COUNT 175 X10'3 (140-440); RED BLOOD COUNT 3.22 X10'6 (4.70-6.10); RED CELL DISTRIBUTION WIDTH 16.9 % (11.5-14.5); WHITE BLOOD COUNT 10.3 X10'3 (4.5-11.0)
[2017-12-27 07:44] LABS: ALANINE AMINOTRANSFERASE 56 U/L (12-78); ALBUMIN 1.9 G/DL (3.4-5.0); ALBUMIN/GLOBULIN RATIO 0.4 (1.1-1.5); ALKALINE PHOSPHATASE 180 IU/L (46-116); ANION GAP 5 (8-16); ASPARTATE AMINO TRANSFERASE 51 U/L (10-37); BILIRUBIN,TOTAL 0.3 MG/DL (0.1-1.0); BLOOD UREA NITROGEN 26 MG/DL (7-18); BUN/CREATININE RATIO 36.1 (5.4-32.0); CALCIUM 8.7 MG/DL (8.5-10.1); CHLORIDE 99 MMOL/L (99-107); CREATININE 0.72 MG/DL (0.60-1.10); GLUCOSE 112 MG/DL (70-104); POTASSIUM 5.4 MMOL/L (3.5-5.1); SODIUM 135 MMOL/L (135-145); TOTAL CARBON DIOXIDE 31.4 MMOL/L (24-32); TOTAL PROTEIN 6.4 G/DL (6.4-8.2); eGFR > 90 ML/MIN
[2017-12-27] MEDS: K and/or MAG REPLACEMENT MC SCH (08:00)
[2017-12-27] MEDS: ascorbic acid 500mg tablet PEG SCH (08:58)
[2017-12-27] MEDS: atorvastatin 10mg tablet PEG SCH (08:58)
[2017-12-27] MEDS: lactobacillus rhamnosus 10,000 MMU CELLS/CAPSULE PEG SCH ×2 (08:58→20:21)
[2017-12-27] MEDS: gabapentin 300mg capsule PEG SCH ×3 (08:58→23:56)
[2017-12-27] MEDS: multivitamin oral liquid (Certavite) 5ml cup PEG SCH (08:58)
[2017-12-27] MEDS: neomy sulf/polymyx B sulf/HC otic soln 10ml RIGHT EAR SCH ×4 (08:59→20:21)
[2017-12-27] MEDS: heparin, porcine 5000 units/ml vial SQ SCH ×2 (08:59→20:21)
[2017-12-27] MEDS: normal saline 1000ml 1,000 ML IV SCH (09:04)
[2017-12-27 10:00] VITALS: BP 138/71
[2017-12-27 14:14] LABS: ALBUMIN 1.8 G/DL (3.4-5.0); ANION GAP 5 (8-16); BLOOD UREA NITROGEN 24 MG/DL (7-18); BUN/CREATININE RATIO 35.8 (5.4-32.0); CALCIUM 8.5 MG/DL (8.5-10.1); CHLORIDE 100 MMOL/L (99-107); CREATININE 0.67 MG/DL (0.60-1.10); GLUCOSE 117 MG/DL (70-104); POTASSIUM 5.2 MMOL/L (3.5-5.1); SODIUM 135 MMOL/L (135-145); TOTAL CARBON DIOXIDE 29.9 MMOL/L (24-32); eGFR > 90 ML/MIN
[2017-12-27 18:00] VITALS: BP 125/56
[2017-12-27 22:00] VITALS: BP 135/70
[2017-12-28] MEDS: insulin regular, human vial - multi-dose SQ SCH ×4 (02:04→20:20)
[2017-12-28 06:00] VITALS: BP 139/68
[2017-12-28] MEDS: lactobacillus rhamnosus 10,000 MMU CELLS/CAPSULE PEG SCH ×2 (07:11→20:18)
[2017-12-28] MEDS: multivitamin oral liquid (Certavite) 5ml cup PEG SCH (07:11)
[2017-12-28] MEDS: atorvastatin 10mg tablet PEG SCH (07:11)
[2017-12-28] MEDS: ascorbic acid 500mg tablet PEG SCH (07:11)
[2017-12-28] MEDS: heparin, porcine 5000 units/ml vial SQ SCH ×2 (07:12→20:18)
[2017-12-28] MEDS: K and/or MAG REPLACEMENT MC SCH (08:00)
[2017-12-28 08:07] LABS: BASOPHILS # (AUTO) 0.1 X10'3 (0-0.2); BASOPHILS % (AUTO) 0.7 % (0-1); EOSINOPHILS # (AUTO) 0.2 X10'3 (0-0.9); EOSINOPHILS % (AUTO) 2.1 % (0-6); HEMATOCRIT 23.4 % (42.0-52.0); HEMOGLOBIN 8.1 g/dl (14.0-17.9); LYMPHOCYTES # (AUTO) 0.5 X10'3 (1.1-4.8); LYMPHOCYTES % (AUTO) 5.8 % (21-51); MEAN CORPUSCULAR HEMOGLOBIN 28.5 PG (27.0-31.0); MEAN CORPUSCULAR HGB CONC 34.8 % (33.0-36.5); MEAN CORPUSCULAR VOLUME 81.9 FL (78-98); MEAN PLATELET VOLUME 9.7 FL (7.4-10.4); MONOCYTES # (AUTO) 1.2 X10'3 (0-0.9); NEUTROPHILS # (AUTO) 7.2 X10'3 (1.8-7.7); NEUTROPHILS % (AUTO) 78.4 % (42-75); PLATELET COUNT 177 X10'3 (140-440); RED BLOOD COUNT 2.86 X10'6 (4.70-6.10); WHITE BLOOD COUNT 9.2 X10'3 (4.5-11.0)
[2017-12-28 08:24] LABS: ALANINE AMINOTRANSFERASE 49 U/L (12-78); ALBUMIN 1.8 G/DL (3.4-5.0); ALBUMIN/GLOBULIN RATIO 0.4 (1.1-1.5); ALKALINE PHOSPHATASE 177 IU/L (46-116); ANION GAP 6 (8-16); ASPARTATE AMINO TRANSFERASE 39 U/L (10-37); BILIRUBIN,TOTAL 0.3 MG/DL (0.1-1.0); BLOOD UREA NITROGEN 20 MG/DL (7-18); CALCIUM 8.7 MG/DL (8.5-10.1); CHLORIDE 98 MMOL/L (99-107); CREATININE 0.74 MG/DL (0.60-1.10); GLUCOSE 125 MG/DL (70-104); POTASSIUM 5.1 MMOL/L (3.5-5.1); SODIUM 134 MMOL/L (135-145); TOTAL CARBON DIOXIDE 29.9 MMOL/L (24-32); TOTAL PROTEIN 6.1 G/DL (6.4-8.2); eGFR > 90 ML/MIN
[2017-12-28] MEDS: neomy sulf/polymyx B sulf/HC otic soln 10ml RIGHT EAR SCH ×4 (08:55→20:17)
[2017-12-28] MEDS: gabapentin 300mg capsule PEG SCH ×3 (08:55→23:31)
[2017-12-28 10:00] VITALS: BP 128/64
[2017-12-28] MEDS: normal saline 1000ml 1,000 ML IV SCH (17:17)
[2017-12-28 18:00] VITALS: BP 124/61
[2017-12-28 22:00] VITALS: BP 128/67
[2017-12-29] MEDS: insulin regular, human vial - multi-dose SQ SCH ×4 (02:20→20:25)
[2017-12-29 06:00] VITALS: BP 136/63
[2017-12-29] MEDS: K and/or MAG REPLACEMENT MC SCH (08:00)
[2017-12-29 08:02] LABS: ALANINE AMINOTRANSFERASE 42 U/L (12-78); ALBUMIN/GLOBULIN RATIO 0.4 (1.1-1.5); ALKALINE PHOSPHATASE 168 IU/L (46-116); ANION GAP 5 (8-16); ASPARTATE AMINO TRANSFERASE 34 U/L (10-37); BILIRUBIN,TOTAL 0.4 MG/DL (0.1-1.0); BLOOD UREA NITROGEN 19 MG/DL (7-18); BUN/CREATININE RATIO 25.7 (5.4-32.0); CHLORIDE 98 MMOL/L (99-107); CREATININE 0.74 MG/DL (0.60-1.10); GLUCOSE 79 MG/DL (70-104); POTASSIUM 5.3 MMOL/L (3.5-5.1); SODIUM 134 MMOL/L (135-145); TOTAL CARBON DIOXIDE 30.7 MMOL/L (24-32); TOTAL PROTEIN 6.7 G/DL (6.4-8.2); eGFR > 90 ML/MIN
[2017-12-29 08:06] LABS: BASOPHILS # (AUTO) 0.1 X10'3 (0-0.2); BASOPHILS % (AUTO) 0.5 % (0-1); EOSINOPHILS # (AUTO) 0.2 X10'3 (0-0.9); EOSINOPHILS % (AUTO) 1.5 % (0-6); HEMATOCRIT 25.7 % (42.0-52.0); HEMOGLOBIN 8.8 g/dl (14.0-17.9); LYMPHOCYTES # (AUTO) 0.5 X10'3 (1.1-4.8); LYMPHOCYTES % (AUTO) 4.9 % (21-51); MEAN CORPUSCULAR HEMOGLOBIN 28.5 PG (27.0-31.0); MEAN CORPUSCULAR HGB CONC 34.3 % (33.0-36.5); MEAN PLATELET VOLUME 9.9 FL (7.4-10.4); MONOCYTES # (AUTO) 1.3 X10'3 (0-0.9); NEUTROPHILS # (AUTO) 8.7 X10'3 (1.8-7.7); NEUTROPHILS % (AUTO) 81.1 % (42-75); PLATELET COUNT 184 X10'3 (140-440); RED CELL DISTRIBUTION WIDTH 17.1 % (11.5-14.5); WHITE BLOOD COUNT 10.8 X10'3 (4.5-11.0)
[2017-12-29] MEDS: multivitamin oral liquid (Certavite) 5ml cup PEG SCH (08:42)
[2017-12-29] MEDS: lactobacillus rhamnosus 10,000 MMU CELLS/CAPSULE PEG SCH ×2 (08:42→20:25)
[2017-12-29] MEDS: gabapentin 300mg capsule PEG SCH ×2 (08:43→16:27)
[2017-12-29] MEDS: heparin, porcine 5000 units/ml vial SQ SCH ×2 (08:43→20:22)
[2017-12-29] MEDS: atorvastatin 10mg tablet PEG SCH (08:43)
[2017-12-29] MEDS: ascorbic acid 500mg tablet PEG SCH (08:43)
[2017-12-29] MEDS: neomy sulf/polymyx B sulf/HC otic soln 10ml RIGHT EAR SCH ×4 (09:05→20:25)
[2017-12-29 10:00] VITALS: BP 141/70
[2017-12-29] MEDS ORDERED: sodium polystyrene sulfonate 15gm/60ml oral suspension PO ONE (11:40)
[2017-12-29 15:23] LABS: OCCULT BLOOD STOOL NEGATIVE (Neg)
[2017-12-29] MEDS: normal saline 1000ml 1,000 ML IV SCH (16:27)
[2017-12-29 18:00] VITALS: BP 126/66
[2017-12-30] MEDS: insulin regular, human vial - multi-dose SQ SCH ×4 (02:01→20:23)
[2017-12-30] MEDS: gabapentin 300mg capsule PEG SCH ×4 (02:01→23:56)
[2017-12-30 05:00] VITALS: BP 135/39
[2017-12-30 05:20] LABS: BASOPHILS # (AUTO) 0.1 X10'3 (0-0.2); BASOPHILS % (AUTO) 0.6 % (0-1); EOSINOPHILS # (AUTO) 0.2 X10'3 (0-0.9); HEMATOCRIT 24.9 % (42.0-52.0); HEMOGLOBIN 8.6 g/dl (14.0-17.9); LYMPHOCYTES # (AUTO) 0.5 X10'3 (1.1-4.8); MEAN CORPUSCULAR HEMOGLOBIN 28.3 PG (27.0-31.0); MEAN CORPUSCULAR HGB CONC 34.5 % (33.0-36.5); MEAN CORPUSCULAR VOLUME 81.9 FL (78-98); MEAN PLATELET VOLUME 9.4 FL (7.4-10.4); MONOCYTES # (AUTO) 0.9 X10'3 (0-0.9); MONOCYTES % (AUTO) 10.7 % (2-12); NEUTROPHILS # (AUTO) 6.7 X10'3 (1.8-7.7); NEUTROPHILS % (AUTO) 80.7 % (42-75); PLATELET COUNT 218 X10'3 (140-440); RED BLOOD COUNT 3.04 X10'6 (4.70-6.10); RED CELL DISTRIBUTION WIDTH 16.7 % (11.5-14.5); WHITE BLOOD COUNT 8.4 X10'3 (4.5-11.0)
[2017-12-30 05:26] LABS: ALANINE AMINOTRANSFERASE 43 U/L (12-78); ALBUMIN 1.9 G/DL (3.4-5.0); ALBUMIN/GLOBULIN RATIO 0.4 (1.1-1.5); ALKALINE PHOSPHATASE 171 IU/L (46-116); ANION GAP 7 (8-16); ASPARTATE AMINO TRANSFERASE 35 U/L (10-37); BILIRUBIN,TOTAL 0.3 MG/DL (0.1-1.0); BLOOD UREA NITROGEN 21 MG/DL (7-18); BUN/CREATININE RATIO 31.8 (5.4-32.0); CALCIUM 9.3 MG/DL (8.5-10.1); CHLORIDE 100 MMOL/L (99-107); CREATININE 0.66 MG/DL (0.60-1.10); GLUCOSE 87 MG/DL (70-104); POTASSIUM 4.7 MMOL/L (3.5-5.1); SODIUM 137 MMOL/L (135-145); TOTAL CARBON DIOXIDE 30.2 MMOL/L (24-32); TOTAL PROTEIN 6.5 G/DL (6.4-8.2); eGFR > 90 ML/MIN
[2017-12-30] MEDS: K and/or MAG REPLACEMENT MC SCH (06:49)
[2017-12-30] MEDS: lactobacillus rhamnosus 10,000 MMU CELLS/CAPSULE PEG SCH ×2 (07:14→20:18)
[2017-12-30] MEDS: ascorbic acid 500mg tablet PEG SCH (07:14)
[2017-12-30] MEDS: atorvastatin 10mg tablet PEG SCH (07:14)
[2017-12-30] MEDS: multivitamin oral liquid (Certavite) 5ml cup PEG SCH (07:14)
[2017-12-30] MEDS: heparin, porcine 5000 units/ml vial SQ SCH ×2 (07:15→20:19)
[2017-12-30] MEDS: neomy sulf/polymyx B sulf/HC otic soln 10ml RIGHT EAR SCH (07:16)
[2017-12-30 10:00] VITALS: BP 149/74
[2017-12-30] MEDS: meropenem inj 1 GM in normal saline 100ml IV soln 100 ML IV SCH ×2 (15:16→23:56)
[2017-12-30 18:00] VITALS: BP 152/67
[2017-12-30 22:00] VITALS: BP 154/79
[2017-12-30] MEDS: normal saline 1000ml 1,000 ML IV SCH (23:56)
[2017-12-31] MEDS: insulin regular, human vial - multi-dose SQ SCH ×4 (02:02→20:36)
[2017-12-31 05:43] LABS: BASOPHILS % (AUTO) 0.6 % (0-1); EOSINOPHILS # (AUTO) 0.2 X10'3 (0-0.9); EOSINOPHILS % (AUTO) 2.5 % (0-6); HEMATOCRIT 26.7 % (42.0-52.0); HEMOGLOBIN 8.9 g/dl (14.0-17.9); LYMPHOCYTES # (AUTO) 0.5 X10'3 (1.1-4.8); LYMPHOCYTES % (AUTO) 6.5 % (21-51); MEAN CORPUSCULAR HEMOGLOBIN 27.8 PG (27.0-31.0); MEAN CORPUSCULAR HGB CONC 33.5 % (33.0-36.5); MEAN CORPUSCULAR VOLUME 82.8 FL (78-98); MEAN PLATELET VOLUME 9.6 FL (7.4-10.4); MONOCYTES # (AUTO) 0.8 X10'3 (0-0.9); MONOCYTES % (AUTO) 10.5 % (2-12); NEUTROPHILS # (AUTO) 6.6 X10'3 (1.8-7.7); NEUTROPHILS % (AUTO) 79.9 % (42-75); PLATELET COUNT 226 X10'3 (140-440); RED BLOOD COUNT 3.22 X10'6 (4.70-6.10); RED CELL DISTRIBUTION WIDTH 16.8 % (11.5-14.5); WHITE BLOOD COUNT 8.1 X10'3 (4.5-11.0)
[2017-12-31 06:00] VITALS: BP 149/72
[2017-12-31 06:11] LABS: ALANINE AMINOTRANSFERASE 41 U/L (12-78); ALBUMIN/GLOBULIN RATIO 0.4 (1.1-1.5); ALKALINE PHOSPHATASE 182 IU/L (46-116); ANION GAP 7 (8-16); ASPARTATE AMINO TRANSFERASE 31 U/L (10-37); BILIRUBIN,TOTAL 0.3 MG/DL (0.1-1.0); BLOOD UREA NITROGEN 21 MG/DL (7-18); BUN/CREATININE RATIO 31.3 (5.4-32.0); CALCIUM 8.9 MG/DL (8.5-10.1); CHLORIDE 99 MMOL/L (99-107); CREATININE 0.67 MG/DL (0.60-1.10); GLUCOSE 146 MG/DL (70-104); SODIUM 134 MMOL/L (135-145); TOTAL CARBON DIOXIDE 28.1 MMOL/L (24-32); TOTAL PROTEIN 6.6 G/DL (6.4-8.2); eGFR > 90 ML/MIN
[2017-12-31 07:04] LABS: ANISOCYTOSIS 1+; PLATELET ESTIMATE NORMAL
[2017-12-31] MEDS: K and/or MAG REPLACEMENT MC SCH (07:41)
[2017-12-31] MEDS: enoxaparin 40mg/0.4ml syringe SUBCUT SCH (07:50)
[2017-12-31] MEDS: heparin, porcine 5000 units/ml vial SQ SCH ×2 (07:53→20:30)
[2017-12-31] MEDS: gabapentin 300mg capsule PEG SCH ×3 (07:55→23:51)
[2017-12-31] MEDS: multivitamin oral liquid (Certavite) 5ml cup PEG SCH (07:55)
[2017-12-31] MEDS: lactobacillus rhamnosus 10,000 MMU CELLS/CAPSULE PEG SCH ×2 (07:55→20:29)
[2017-12-31] MEDS: atorvastatin 10mg tablet PEG SCH (07:56)
[2017-12-31] MEDS: ascorbic acid 500mg tablet PEG SCH (07:56)
[2017-12-31] MEDS: meropenem inj 1 GM in normal saline 100ml IV soln 100 ML IV SCH ×3 (07:56→23:51)
[2017-12-31 10:00] VITALS: BP 137/64
[2017-12-31 18:00] VITALS: BP 139/69
[2017-12-31 22:00] VITALS: BP 138/68
[2018-01-01] MEDS: insulin regular, human vial - multi-dose SQ SCH ×4 (01:44→20:45)
[2018-01-01 06:00] VITALS: BP 140/56
[2018-01-01] MEDS: K and/or MAG REPLACEMENT MC SCH (07:55)
[2018-01-01] MEDS: meropenem inj 1 GM in normal saline 100ml IV soln 100 ML IV SCH ×3 (08:10→23:40)
[2018-01-01] MEDS: atorvastatin 10mg tablet PEG SCH (08:12)
[2018-01-01] MEDS: multivitamin oral liquid (Certavite) 5ml cup PEG SCH (08:12)
[2018-01-01] MEDS: gabapentin 300mg capsule PEG SCH ×3 (08:12→23:40)
[2018-01-01] MEDS: ascorbic acid 500mg tablet PEG SCH (08:12)
[2018-01-01] MEDS: lactobacillus rhamnosus 10,000 MMU CELLS/CAPSULE PEG SCH ×2 (08:12→20:32)
[2018-01-01] MEDS: enoxaparin 40mg/0.4ml syringe SUBCUT SCH (08:19)
[2018-01-01 10:00] VITALS: BP 153/67
[2018-01-01 18:00] VITALS: BP 152/71
[2018-01-01 22:00] VITALS: BP 145/60
[2018-01-02] MEDS: insulin regular, human vial - multi-dose SQ SCH ×2 (02:12→08:30)
[2018-01-02] MEDS: K and/or MAG REPLACEMENT MC SCH (07:42)
[2018-01-02] MEDS: meropenem inj 1 GM in normal saline 100ml IV soln 100 ML IV SCH ×2 (07:48→16:09)
[2018-01-02] MEDS: lactobacillus rhamnosus 10,000 MMU CELLS/CAPSULE PEG SCH ×2 (07:52→20:43)
[2018-01-02] MEDS: multivitamin oral liquid (Certavite) 5ml cup PEG SCH (07:52)
[2018-01-02] MEDS: atorvastatin 10mg tablet PEG SCH (07:52)
[2018-01-02] MEDS: enoxaparin 40mg/0.4ml syringe SUBCUT SCH (07:52)
[2018-01-02] MEDS: gabapentin 300mg capsule PEG SCH ×2 (07:52→16:10)
[2018-01-02] MEDS: ascorbic acid 500mg tablet PEG SCH (07:52)
[2018-01-02 10:00] VITALS: BP 146/65
[2018-01-02 17:00] VITALS: BP 133/68
[2018-01-02] MEDS ORDERED: acetaminophen 325mg tablet PO PRN (18:35)
[2018-01-02] MEDS ORDERED: LORazepam 2 mg/ml vial IV PRN (18:35)
[2018-01-02] MEDS: docusate sod 100mg capsule PO SCH (20:43)
[2018-01-02 22:00] VITALS: BP 140/65
[2018-01-03] MEDS: gabapentin 300mg capsule PEG SCH ×4 (00:24→23:49)
[2018-01-03] MEDS: meropenem inj 1 GM in normal saline 100ml IV soln 100 ML IV SCH ×2 (00:27→09:21)
[2018-01-03] MEDS: lactobacillus rhamnosus 10,000 MMU CELLS/CAPSULE PEG SCH ×2 (08:00→20:06)
[2018-01-03] MEDS: ascorbic acid 500mg tablet PEG SCH (09:13)
[2018-01-03] MEDS: docusate sod 100mg capsule PO SCH ×2 (09:14→20:07)
[2018-01-03] MEDS: morphine 10mg/0.5ml (conc. morphine) oral syringe PO PRN (09:22)
[2018-01-03 10:00] VITALS: BP 134/81
[2018-01-04 00:43] VITALS: BP 137/69
[2018-01-04] MEDS: lactobacillus rhamnosus 10,000 MMU CELLS/CAPSULE PEG SCH ×2 (09:27→19:21)
[2018-01-04] MEDS: ascorbic acid 500mg tablet PEG SCH (09:29)
[2018-01-04] MEDS: docusate sodium 100mg/10ml UD cup PO SCH ×2 (09:29→19:22)
[2018-01-04] MEDS: gabapentin 300mg capsule PEG SCH ×3 (09:29→23:07)
[2018-01-04 18:00] VITALS: BP 137/71
[2018-01-04] MEDS: morphine 10mg/0.5ml (conc. morphine) oral syringe PO PRN (21:44)
[2018-01-05 07:00] VITALS: BP 134/66
[2018-01-05] MEDS: docusate sodium 100mg/10ml UD cup PO SCH ×2 (08:27→20:38)
[2018-01-05] MEDS: ascorbic acid 500mg tablet PEG SCH (08:28)
[2018-01-05] MEDS: gabapentin 300mg capsule PEG SCH ×3 (08:28→23:41)
[2018-01-05] MEDS: lactobacillus rhamnosus 10,000 MMU CELLS/CAPSULE PEG SCH ×2 (08:28→20:38)
[2018-01-05 22:00] VITALS: BP 140/67
[2018-01-06] MEDS: morphine 10mg/0.5ml (conc. morphine) oral syringe PO PRN (00:15)
[2018-01-06] MEDS: lactobacillus rhamnosus 10,000 MMU CELLS/CAPSULE PEG SCH ×2 (08:19→19:09)
[2018-01-06] MEDS: docusate sodium 100mg/10ml UD cup PO SCH ×2 (08:19→19:08)
[2018-01-06] MEDS: ascorbic acid 500mg tablet PEG SCH (08:20)
[2018-01-06] MEDS: gabapentin 300mg capsule PEG SCH ×3 (08:20→23:51)
[2018-01-06 10:00] VITALS: BP 123/72
[2018-01-06 22:00] VITALS: BP_SYST 129; BP_SYST 87; BP_DIAS 50; BP_DIAS 70
[2018-01-07] MEDS: morphine 10mg/0.5ml (conc. morphine) oral syringe PO PRN (00:16)
[2018-01-07 06:00] VITALS: BP 142/70
[2018-01-07] MEDS: ascorbic acid 500mg tablet PEG SCH (09:36)
[2018-01-07] MEDS: lactobacillus rhamnosus 10,000 MMU CELLS/CAPSULE PEG SCH ×2 (09:37→20:40)
[2018-01-07] MEDS: docusate sodium 100mg/10ml UD cup PO SCH ×2 (09:37→20:40)
[2018-01-07] MEDS: gabapentin 300mg capsule PEG SCH ×2 (09:37→16:33)
[2018-01-07 10:00] VITALS: BP 107/64
[2018-01-07 22:00] VITALS: BP 151/69
[2018-01-08] MEDS: magnesium hydroxide 30ml (MOM) UD suspension PEG PRN (05:58)
[2018-01-08] MEDS: lactobacillus rhamnosus 10,000 MMU CELLS/CAPSULE PEG SCH ×2 (08:09→19:48)
[2018-01-08] MEDS: gabapentin 300mg capsule PEG SCH ×3 (08:09→15:39)
[2018-01-08] MEDS: docusate sodium 100mg/10ml UD cup PO SCH ×2 (08:10→19:48)
[2018-01-08] MEDS: ascorbic acid 500mg tablet PEG SCH (08:10)
[2018-01-08 11:10] VITALS: BP 103/54
[2018-01-08] MEDS ORDERED: LORazepam 1 MG tablet PO PRN (13:50)
[2018-01-08 22:00] VITALS: BP 119/67
[2018-01-09] MEDS: gabapentin 300mg capsule PEG SCH ×4 (00:23→23:49)
[2018-01-09] MEDS: docusate sodium 100mg/10ml UD cup PO SCH ×2 (07:56→19:29)
[2018-01-09] MEDS: lactobacillus rhamnosus 10,000 MMU CELLS/CAPSULE PEG SCH ×2 (07:56→19:29)
[2018-01-09] MEDS: ascorbic acid 500mg tablet PEG SCH (07:56)
[2018-01-09 11:35] VITALS: BP 111/56
[2018-01-09] MEDS ORDERED: insulin glargine (Lantus) pen - multi-dose SQ ONE (19:20)
[2018-01-09] MEDS ORDERED: insulin regular, human vial - multi-dose SQ ONE (19:20)
[2018-01-09 22:00] VITALS: BP 101/64
[2018-01-09] MEDS: morphine 10mg/0.5ml (conc. morphine) oral syringe PO PRN (23:49)
[2018-01-10] MEDS ORDERED: insulin regular, human 10 units/0.1 ml syringe IV ONE (00:45)
[2018-01-10] MEDS ORDERED: insulin glargine (Lantus) pen - multi-dose SQ ONE ×2 (00:45→00:50)
[2018-01-10] MEDS: docusate sodium 100mg/10ml UD cup PO SCH ×2 (08:00→20:14)
[2018-01-10] MEDS: gabapentin 300mg capsule PEG SCH ×3 (08:00→23:44)
[2018-01-10] MEDS: lactobacillus rhamnosus 10,000 MMU CELLS/CAPSULE PEG SCH ×2 (08:00→20:15)
[2018-01-10] MEDS: ascorbic acid 500mg tablet PEG SCH (08:00)
[2018-01-10] MEDS: morphine 10mg/0.5ml (conc. morphine) oral syringe PO PRN ×4 (08:49→23:46)
[2018-01-10] MEDS: normal saline 1000ml 1,000 ML IV SCH ×3 (10:07→14:10)
[2018-01-10 10:09] VITALS: BP 93/41
[2018-01-10 10:21] LABS: ALBUMIN 2.7 G/DL (3.4-5.0); ANION GAP 12 (8-16); BLOOD UREA NITROGEN 118 MG/DL (7-18); CALCIUM 10.4 MG/DL (8.5-10.1); CHLORIDE 108 MMOL/L (99-107); CREATININE 2.68 MG/DL (0.60-1.10); POTASSIUM 5.3 MMOL/L (3.5-5.1); SODIUM 149 MMOL/L (135-145); TOTAL CARBON DIOXIDE 29.2 MMOL/L (24-32); eGFR 23 ML/MIN
[2018-01-10 10:32] LABS: GLUCOSE 702 MG/DL (70-104)
[2018-01-10] MEDS: insulin Lispro (HumaLOG) vial - multi-dose SQ SCH ×2 (16:22→20:14)
[2018-01-10] MEDS ORDERED: insulin glargine (Lantus) pen - multi-dose SQ SCH (21:00)
[2018-01-11] MEDS: normal saline 1000ml 1,000 ML IV SCH (00:19)
[2018-01-11] MEDS: insulin Lispro (HumaLOG) vial - multi-dose SQ SCH ×2 (00:24→04:10)
== END 2018-01-11 10:20 | disposition expired | DRG 474 ==
LOC: ER 10:40 → PCU 3S 17:37 → ORTHO 4S 11-18 15:20 → PACU 12-01 08:06 → ORTHO 4S 12-01 10:07
PROVIDERS: ADMIT Family Medicine; ATTEND Internal Medicine
PROC: B42H1ZZ Computerized Tomography (CT Scan) of Bilateral Lower Extremity Arteries using Low Osmolar Contrast (ICD-10-PCS; 2017-11-07)
PROC: BW211ZZ Computerized Tomography (CT Scan) of Abdomen and Pelvis using Low Osmolar Contrast (ICD-10-PCS; 2017-11-11)
PROC: 30233N1 Transfusion of Nonautologous Red Blood Cells into Peripheral Vein, Percutaneous Approach (ICD-10-PCS; 2017-11-29)
PROC: 30233N1 Transfusion of Nonautologous Red Blood Cells into Peripheral Vein, Percutaneous Approach (ICD-10-PCS; 2017-11-30)
PROC: 0Y6H0Z1 Detachment at Right Lower Leg, High, Open Approach (ICD-10-PCS; principal; 2017-12-01 07:57)
PROC: 0DB58ZX Excision of Esophagus, Via Natural or Artificial Opening Endoscopic, Diagnostic (ICD-10-PCS; 2017-12-07)
PROC: 0DB68ZX Excision of Stomach, Via Natural or Artificial Opening Endoscopic, Diagnostic (ICD-10-PCS; 2017-12-07)
PROC: 0D758ZZ Dilation of Esophagus, Via Natural or Artificial Opening Endoscopic (ICD-10-PCS; 2017-12-07)
PROC: BW30YZZ Magnetic Resonance Imaging (MRI) of Abdomen using Other Contrast (ICD-10-PCS; 2017-12-11)
PROC: 0FB23ZX Excision of Left Lobe Liver, Percutaneous Approach, Diagnostic (ICD-10-PCS; 2017-12-19)
PROC: 0DH63UZ Insertion of Feeding Device into Stomach, Percutaneous Approach (ICD-10-PCS; 2017-12-19)
DX: T87.43 Infection of amputation stump, right lower extremity (principal); A41.9 Sepsis, unspecified organism; E43 Unspecified severe protein-calorie malnutrition; J69.0 Pneumonitis due to inhalation of food and vomit; N17.9 Acute kidney failure, unspecified; E87.1 Hypo-osmolality and hyponatremia; B37.81 Candidal esophagitis; R04.2 Hemoptysis; L97.428 Non-pressure chronic ulcer of left heel and midfoot with other specified severity; C78.7 Secondary malignant neoplasm of liver and intrahepatic bile duct; E87.0 Hyperosmolality and hypernatremia; G93.49 Other encephalopathy; E11.51 Type 2 diabetes mellitus with diabetic peripheral angiopathy without gangrene; E86.0 Dehydration; D63.8 Anemia in other chronic diseases classified elsewhere; E11.621 Type 2 diabetes mellitus with foot ulcer; E11.65 Type 2 diabetes mellitus with hyperglycemia; E78.5 Hyperlipidemia, unspecified; E87.5 Hyperkalemia; H54.8 Legal blindness, as defined in USA; I10 Essential (primary) hypertension; I44.7 Left bundle-branch block, unspecified; I70.201 Unspecified atherosclerosis of native arteries of extremities, right leg; K22.4 Dyskinesia of esophagus; K22.8 Other specified diseases of esophagus; B95.62 Methicillin resistant Staphylococcus aureus infection as the cause of diseases classified elsewhere; Z16.12 Extended spectrum beta lactamase (ESBL) resistance; B96.20 Unspecified Escherichia coli [E. coli] as the cause of diseases classified elsewhere; R06.03 Acute respiratory distress; K29.70 Gastritis, unspecified, without bleeding; K59.00 Constipation, unspecified; J44.9 Chronic obstructive pulmonary disease, unspecified; C80.1 Malignant (primary) neoplasm, unspecified; R13.12 Dysphagia, oropharyngeal phase; Y95 Nosocomial condition; Y83.5 Amputation of limb(s) as the cause of abnormal reaction of the patient, or of later complication, without mention of misadventure at the time of the procedure; H92.01 Otalgia, right ear; I95.9 Hypotension, unspecified; M54.2 Cervicalgia; J02.9 Acute pharyngitis, unspecified; Z51.5 Encounter for palliative care; Z66 Do not resuscitate; Z89.511 Acquired absence of right leg below knee; Z98.42 Cataract extraction status, left eye; Z98.41 Cataract extraction status, right eye; Z79.899 Other long term (current) drug therapy; Z79.02 Long term (current) use of antithrombotics/antiplatelets; Z79.4 Long term (current) use of insulin; Z79.82 Long term (current) use of aspirin; Z86.73 Personal history of transient ischemic attack (TIA), and cerebral infarction without residual deficits; Z87.891 Personal history of nicotine dependence; Z80.0 Family history of malignant neoplasm of digestive organs; Z83.3 Family history of diabetes mellitus; Z75.1 Person awaiting admission to adequate facility elsewhere
CPT/HCPCS: 36415; 36600; 43214; 43239; 47000; 71045; 71250; 73706; 74177; 74181; 74230; 76700; 77012; 80048; 80053; 80061; 80074; 80202; 81003; 82103; 82272; 82378; 82803; 82947; 82948; 83605; 83735; 83880; 84134; 84145; 84443; 84484; 85018; 85025; 85610; 85730; 86703; 86885; 86900; 86901; 86920; 87040; 87070; 87077; 87186; 92616; 93005; 93306; 93922; 93925; 94640; 94760; 96360; 96361; 97110; 97116; 97161; 97164; 97530; 97535; 99152; 99153; 99285; A4315; A4620; A4649; A6196; A6209; A6212; A6213; A6222; A6223; A6224; A6250; A6255; A6258; A6446; A6449; A7000; A9270; A9579; C9113; G0500; J0690; J1170; J1450; J1610; J1644; J1650; J1815; J1956; J2185; J2250; J2270; J3010; J3370; J3490; J7030; J7070; J7120; P9016; P9045; Q0167; Q9967